=== PATIENT | female | born 1940 | race Caucasian/White ===

== ENCOUNTER 2016-06-05 12:39 | Inpatient (IN) | payer OTHER ==
[2016-06-05] MEDS ORDERED: LORazepam 0.5 MG TAB PO PRN (13:36)
[2016-06-05] MEDS ORDERED: diphenhydrAMINE 25 MG CAP PO PRN (13:36)
[2016-06-05] MEDS ORDERED: ONDANSETRON 4 MG/2 ML VIAL IVP PRN (13:36)
[2016-06-05] MEDS ORDERED: NS 1,000 ML IV SCH (13:45)
[2016-06-05 14:13] LABS: % IMMATURE GRANULYOCYTES 0.3 % (0.0-1.1); ABSOLUTE IMMATURE GRANULOCYTES 0.02 10^3/uL (0.00-0.10); ADD DIFF? NO; ADD MORPH? NO; ADD SCAN? NO; ATYPICAL LYMPHOCYTE FLAG 10 (0-99); FRAGMENT RBC FLAG 0 (0-99); HEMATOCRIT 42.3 % (38.0-47.0); HEMOGLOBIN 13.6 g/dL (12.6-16.3); LEFT SHIFT FLG 0 (0-99); LIPEMIA HEMOLYSIS FLAG 80 (0-99); MEAN CELL HEMOGLOBIN 31.3 pg (27.9-34.1); MEAN CELL HEMOGLOBIN CONCENTR. 32.2 g/dL (32.4-36.7); MEAN CELL VOLUME 97.5 fL (81.5-99.8); MEAN PLATELET VOLUME 8.3 fL (8.7-11.7); PLATELET CLUMPS FLAG 0 (0-99); PLATELET COUNT 227 10^3/uL (150-400); RED BLOOD CELL COUNT 4.34 10^6/uL (4.18-5.33); RED CELL DISTRIBUTION WIDTH 14.6 % (11.5-15.2)
[2016-06-05 14:32] LABS: ALANINE AMINOTRANSFERASE 34 IU/L (9-52); ALBUMIN 3.6 g/dL (3.5-5.0); ALKALINE PHOSPHATASE 69 IU/L (38-126); ANION GAP 7 mEq/L (8-16); ASPARTATE AMINOTRANSFERASE 25 IU/L (14-46); BILIRUBIN,TOTAL 0.6 mg/dL (0.1-1.4); CALCIUM 8.6 mg/dL (8.5-10.4); CARBON DIOXIDE 27 mEq/l (22-31); CHLORIDE 103 mEq/L (97-110); CREATININE 0.6 mg/dL (0.6-1.0); GLOMERULAR FILTRATION RATE > 60; GLUCOSE 88 mg/dL (70-100); POTASSIUM 5.3 mEq/L (3.5-5.2); SODIUM 137 mEq/L (134-144); TOTAL PROTEIN 5.8 g/dL (6.3-8.2)
--- NOTE | 2016-06-05 14:34 | GHP ---
[f rep st] HISTORY AND PHYSICAL DATE OF ADMISSION: 06/05/2016 REASON FOR ADMISSION: Hypoxia, suspected pneumonia, rule out pulmonary embolus. HISTORY OF PRESENT ILLNESS: The patient is a 75-year-old female, who started to feel ill on Wednesday . She has remained to be somewhat weak, has had a productive cough and has noticed some wheezing. She thinks that burning some soup ingredients may have been the initial irritant that triggered her lung irritation. She feels weak, tired and frustrated. She has had increased left knee pain which has further limited her mobility. She has had some swelling in that leg. Despite low saturation yovani gutierrez denies obvious shortness of breath. She does take chronic pain medications given musculoskeletal issues. 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 ALLERGIES: Biaxin causes nausea; fentanyl patch poorly tolerated; penicillins, reaction unknown; pr omethazine with dyskinesia; Remicade, prior transverse myelitis; codeine, nausea and vomiting; Butra ns patch caused a rash from the adhesive; Macrobid, global dysfunction. OB HISTORY: 2 pregnancies, 2 children, normal spontaneous deliveries without complications. SURGICAL HISTORY: Several spinal surgeries, exploratory abdominal surgery for abdominal pain, appen dectomy 2006, hysterectomy 1974. FAMILY HISTORY: Father at age 45 from trauma. Mother lived to be 92, suffered from leukemia a nd rheumatoid arthritis. REVIEW OF SYSTEMS: GENERAL: She is currently feeling quite fatigued. She admits to fever, some ch ills and overall frustration with weakness. HEENT: She denies headaches, denies visual change. Yovani gutierrez does feel there is some nasal congestion. She denies sore throat or dental pain. Denies acute he aring challenges. NECK: No unusual pain. BREATHING: She admits to an intermittently heavy produc tive cough; this is productive of brown sputum. She is not a smoker. Does not have a smoking histo ry. She does have a history of pneumonia, most recently in December of this past year. She denies chest pain or pressure. She denies any sense of rhythm abnormalities. GASTROINTESTINAL: She state s her appetite is diminished. Chronic loose stool is unchanged. No other acute abdominal issue. L eft-sided abdominal pain is a chronic challenge. SKIN: No recent rash. BREAST AND PELVIC: Otherw ise no concerns outside of chronic urinary incontinence. She does have a history of recurrent bladd er infection and is on suppression cephalexin at bedtime. MUSCULOSKELETAL: As per past medical hist ory, left knee has been most painful more recently. Rheumatoid arthritis seems to be mostly well co ntrolled. Chronic pain medication therapy is working well for chronic back pain. PHYSICAL EXAM: VITAL SIGNS: Temperature 100.4, blood pressure 140/68, saturation on room air is 78 %, with oxygen she is in the 90s, respiratory rate 16 to 20. GENERAL: Tired but pleasant female. HEENT: Some increased puffiness about her eyes. Pupils are symmetric. She is appropriate. Head i s atraumatic. Oropharynx is somewhat dry. NECK: Without masses. No jugular venous pressure or el evation. No lymphadenopathy. LUNGS: Diminished breath sounds. There are crackles and productivit y in her bases. Breath sounds improved somewhat after albuterol nebulizer treatment in the office. HEART: Regular rate and rhythm without murmur. ABDOMEN: Moderate central adiposity. Positive nafisa wel sounds. Soft, nontender. No guarding rebound or masses. SPINE: Stable postsurgical changes. On exam, no acute tenderness. EXTREMITIES: Lower extremities left leg with 2+ edema, right leg wi th trace to 1+ edema. Left knee with hypertrophic degenerative changes, as well as some warmth. Bl ood work is pending. IMAGING: Pending. ASSESSMENT: 1. Hypoxia. Lung exam and findings consistent with pneumonia. Underlying pulmonary emboli cannot be excluded. We will admit. Supply supportive oxygen. Check blood cultures. Begin antibiotic the rapy with Levaquin 750 mg IV daily. Add Solu-Medrol IV, as well as serial nebs. We will obtain CT chest with and without contrast. Rule out pneumonia or pulmonary emboli. If there is no pulmonary embolism, check left lower extremity venous Doppler to rule out potential clot in leg. 2. Chronic pain. I suspect chronic pain meds are reducing sense of shortness of breath. We will c ontinue with typical schedule; adjust based on pain control and overall vital sign response. 3. Hypertension. Well controlled. 4. Depression. Acute on chronic challenges. Day to day quality of life is certainly straining ove rall sense of well-being and independence. 5. Rheumatoid arthritis. Stable. 6. Acute left knee pain. She has had recent injection therapy. She may need to consider further i njections versus orthopedic consultation for knee replacement. At this time further data is pending. We will tailor therapy based on results. We will initiate Lo venox for DVT/PE prevention. We may need to change the treatment dose based on findings of above te sts. /[id number]/MODL
[2016-06-05] MEDS: HYDROCODONE/APAP 10/325 TAB PO PRN (14:39)
--- NOTE | 2016-06-05 14:59 | CPEKG ---
Heart Rate: 78 RR Interval: 769 P-R Interval: 164 QRSD Interval: 88 QT Interval: 404 QTC Interval: 461 P [place]: 77 QRS [place]: -52 T Wave [place]: -2 EKG Severity - ABNORMAL ECG - EKG Impression: SINUS RHYTHM EKG Impression: MULTIPLE VENTRICULAR PREMATURE COMPLEXES EKG Impression: LEFT ANTERIOR FASCICULAR BLOCK EKG Impression: PROBABLE ANTEROSEPTAL INFARCT, AGE INDETERM EKG Impression: NONSPECIFIC T ABNORMALITIES, INFERIOR LEADS Electronically Signed By: Wan Johnson 05-Jun-2016 16:18:15
[2016-06-05] MEDS: ALBUTEROL 3 ML DEYVIAL IH SCH ×2 (15:33→21:06)
[2016-06-05] MEDS ORDERED: IOPAMIDOL (ISOVUE 370) 100 ML BTL IV ONE (16:14)
[2016-06-05] MEDS: ACETAMINOPHEN 325 MG TAB PO PRN (17:23)
[2016-06-05] MEDS: methylPREDNISolone SOD SUCC 125 MG/2 ML VIAL IVP SCH (18:05)
[2016-06-05] MEDS: GABAPENTIN 300 MG CAP PO SCH (20:22)
[2016-06-05] MEDS: morphINE SR 30 MG TAB PO SCH (20:22)
[2016-06-05 20:53] LABS: COLOR PALE YELLOW; LEUKOCYTE ESTERASE,URINE NEGATIVE (NEGATIVE); NITRITE,URINE NEGATIVE (NEGATIVE)
[2016-06-05] MEDS ORDERED: morphINE SR 30 MG TAB PO SCH (21:00)
[2016-06-05] MEDS ORDERED: HYDROCODONE/APAP 10/325 TAB PO SCH (22:00)
[2016-06-06] MEDS: methylPREDNISolone SOD SUCC 125 MG/2 ML VIAL IVP SCH ×3 (00:12→13:04)
[2016-06-06] MEDS: HYDROCODONE/APAP 10/325 TAB PO PRN ×3 (04:30→18:36)
[2016-06-06] MEDS: ALBUTEROL 3 ML DEYVIAL IH SCH ×4 (05:35→21:44)
[2016-06-06] MEDS: ONDANSETRON DISINTEGRATING 4 MG TAB PO PRN ×2 (08:59→18:08)
[2016-06-06] MEDS ORDERED: NON-FORMULARY NEW DRUG (Modafinil [Provigil] 200 MG) PO SCH (09:00)
[2016-06-06] MEDS ORDERED: VITAMIN B COMPLEX 1 EA CAP/TAB PO SCH (09:00)
[2016-06-06] MEDS: ASPIRIN 81 MG CHEWABLE TAB PO SCH (09:00)
[2016-06-06] MEDS ORDERED: NON-FORMULARY NEW DRUG (Nebivolol Hcl [Bystolic] 10 MG) PO SCH (09:00)
[2016-06-06] MEDS ORDERED: CHOLECALCIFEROL PO SCH ×2 (09:00)
[2016-06-06] MEDS: NEBIVOLOL HCL 5 MG TAB PO SCH (09:01)
[2016-06-06] MEDS: GABAPENTIN 300 MG CAP PO SCH ×2 (09:02→20:13)
[2016-06-06] MEDS: OMEGA-3 FATTY ACIDS 1,000 MG CAP PO SCH (09:03)
[2016-06-06] MEDS: ASCORBIC ACID 500 MG TAB PO SCH (09:03)
[2016-06-06] MEDS: VITAMIN B COMPLEX 1 EA CAP/TAB PO SCH (09:05)
[2016-06-06] MEDS: LISINOPRIL 40 MG TAB PO SCH (09:06)
[2016-06-06] MEDS: VENLAFAXINE XR 150 MG CAP PO SCH (09:06)
[2016-06-06] MEDS: ENOXAPARIN 30 MG/0.3 ML SYR SC SCH (09:11)
[2016-06-06] MEDS: MODAFINIL 100 MG TAB PO SCH (09:15)
[2016-06-06] MEDS: morphINE SR 30 MG TAB PO SCH ×2 (09:15→20:13)
--- NOTE | 2016-06-06 10:43 | SOAPPROG ---
SOAP Progress Note Assessment/Plan: Assessment:Pneumonia with bronchospasm. Unable to maintain IV access. Plan: Will change or oral antibiotics. Begin albuterol inhaler. Home tomorrow if improvement continues. 06/06/16 10:43 Subjective: Feeling some better. Still wobbly. 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 Sputum is thinner. Objective: Vital Signs Temp Pulse Resp BP Pulse Ox 37.2 C 121 H 16 154/99 H 96 06/06/16 07:45 06/06/16 09:01 06/06/16 08:45 06/06/16 09:06 06/06/16 08:45 Laboratory Results 06/05/16 13:45 06/05/16 13:45 06/05/16 06/06/16 06/07/16 05:59 05:59 05:59 Intake Total 250 Output Total 250 Balance 0 Lungs with scattered coarse wheezing. COR RRR. Oxygen sat 98-99% on RA. ICD10 Worksheet Patient Problems: Problems Problem Status Onset Abdominal pain Acute Arthrodesis status Acute Cauda equina syndrome Acute Chronic Disease Mgmt/Transitional Care Acute Low back pain Acute Lumbosacral stenosis Acute Pneumonia Acute UTI (urinary tract infection) Acute
[2016-06-06] MEDS: ACETAMINOPHEN 325 MG TAB PO PRN (12:16)
[2016-06-06] MEDS: predniSONE 20 MG TAB PO SCH (18:36)
[2016-06-07] MEDS: HYDROCODONE/APAP 10/325 TAB PO PRN ×2 (00:47→09:53)
[2016-06-07] MEDS: ACETAMINOPHEN 325 MG TAB PO PRN (03:41)
[2016-06-07] MEDS: ALBUTEROL 3 ML DEYVIAL IH SCH ×4 (05:27→20:39)
[2016-06-07] MEDS: morphINE SR 30 MG TAB PO SCH ×2 (09:53→20:13)
[2016-06-07] MEDS: ASCORBIC ACID 500 MG TAB PO SCH (10:02)
[2016-06-07] MEDS: OMEGA-3 FATTY ACIDS 1,000 MG CAP PO SCH (10:03)
[2016-06-07] MEDS: VENLAFAXINE XR 150 MG CAP PO SCH (10:03)
[2016-06-07] MEDS: NEBIVOLOL HCL 5 MG TAB PO SCH (10:03)
[2016-06-07] MEDS: predniSONE 20 MG TAB PO SCH ×2 (10:05→18:37)
[2016-06-07] MEDS: MODAFINIL 100 MG TAB PO SCH (10:05)
[2016-06-07] MEDS: LISINOPRIL 40 MG TAB PO SCH (10:06)
[2016-06-07] MEDS: CHOLECALCIFEROL VIT D3 2,000 UNITS TAB/CAP PO SCH (10:06)
[2016-06-07] MEDS: VITAMIN B COMPLEX 1 EA CAP/TAB PO SCH (10:06)
[2016-06-07] MEDS: GABAPENTIN 300 MG CAP PO SCH ×2 (10:06→20:13)
[2016-06-07] MEDS: ASPIRIN 81 MG CHEWABLE TAB PO SCH (10:06)
[2016-06-07] MEDS: ENOXAPARIN 30 MG/0.3 ML SYR SC SCH (10:08)
[2016-06-07] MEDS: ONDANSETRON DISINTEGRATING 4 MG TAB PO PRN (10:20)
[2016-06-07] MEDS ORDERED: QUEtiapine FUMARATE 25 MG TAB PO PRN (10:46)
--- NOTE | 2016-06-07 11:14 | SOAPPROG ---
SOAP Progress Note Assessment/Plan: Assessment: 75 yo female w/ pna, bronchospasm, rad, chronic pain, L 9th rib fracture -pna - changed to oral levaquin yesterday but reports she can't tolerate it ( nauseated and zofran no help), will change her to ceftin and azith, cont nebs, steroids, oxygen, want her to try to ambulate around some today as well. -chronic pain management - will increase her norco back to her usual dosing, cont baseline morphine as well. She is pretty uncomfortable currently. Her meds were reduced a bit b/c of hypoxia initially. -htn - bp elevated currently but in pain, with increased pain mngt expect this will return to good control. Will recheck vitals later today. -RA - stable. -insomnia - wrote order for her queitapine - was not on list, re-start tonight which should help calm things down for her and w/ some better sleep hopefully she will feel better tomorrow. -dispo - possible d/c tomorrow Plan: 06/07/16 11:05 Subjective: Not doing well, pain increased, didn't sleep, feeling discouraged Objective: Vital Signs Temp Pulse Resp BP Pulse Ox 36.4 C 81 18 175/108 H 96 06/07/16 10:22 06/07/16 10:22 06/07/16 10:22 06/07/16 10:22 06/07/16 10:22 Laboratory Results 06/05/16 13:45 06/05/16 13:45 06/06/16 06/07/16 06/08/16 05:59 05:59 05:59 Intake Total 250 1220 Output Total 250 4 Balance 0 1216 Gen: alert, teary, tired appearing HEENT: perr, wearing nasal cannula NEck: soft/supple Chest: wheezing and rhonchi CV: rrr ABD: soft nt nd Ext: no edema ICD10 Worksheet Patient Problems: Problems Problem Status Onset Abdominal pain Acute Low back pain Acute Lumbosacral stenosis Acute Arthrodesis status Acute Cauda equina syndrome Acute Chronic Disease Mgmt/Transitional Care Acute UTI (urinary tract infection) Acute Pneumonia Acute
[2016-06-07] MEDS ORDERED: AZITHROMYCIN 250 MG TAB PO ONE (11:17)
[2016-06-07] MEDS ORDERED: AZITHROMYCIN 250 MG TAB PO SCH (11:30)
[2016-06-07] MEDS: HYDROCODONE/APAP 10/325 TAB PO SCH ×3 (12:03→23:17)
[2016-06-07] MEDS: CEFUROXIME AXETIL 250 MG TAB PO SCH ×2 (12:03→20:13)
[2016-06-08 04:57] LABS: HEMATOCRIT 43.2 % (38.0-47.0); HEMOGLOBIN 14.2 g/dL (12.6-16.3); MEAN CELL HEMOGLOBIN 31.3 pg (27.9-34.1); MEAN CELL HEMOGLOBIN CONCENTR. 32.9 g/dL (32.4-36.7); MEAN CELL VOLUME 95.2 fL (81.5-99.8); RED BLOOD CELL COUNT 4.54 10^6/uL (4.18-5.33); RED CELL DISTRIBUTION WIDTH 14.5 % (11.5-15.2)
[2016-06-08] MEDS: HYDROCODONE/APAP 10/325 TAB PO SCH ×3 (05:02→18:13)
[2016-06-08] MEDS: ALBUTEROL 3 ML DEYVIAL IH SCH ×3 (05:18→16:35)
[2016-06-08 05:34] LABS: ANION GAP 8 mEq/L (8-16); CALCIUM 8.8 mg/dL (8.5-10.4); CARBON DIOXIDE 28 mEq/l (22-31); CHLORIDE 100 mEq/L (97-110); CREATININE 0.5 mg/dL (0.6-1.0); GLOMERULAR FILTRATION RATE > 60; GLUCOSE 119 mg/dL (70-100); POTASSIUM 4.7 mEq/L (3.5-5.2); SODIUM 136 mEq/L (134-144)
[2016-06-08] MEDS: OMEGA-3 FATTY ACIDS 1,000 MG CAP PO SCH (08:01)
[2016-06-08] MEDS: ASPIRIN 81 MG CHEWABLE TAB PO SCH (08:01)
[2016-06-08] MEDS: CEFUROXIME AXETIL 250 MG TAB PO SCH (08:01)
[2016-06-08] MEDS: CHOLECALCIFEROL VIT D3 2,000 UNITS TAB/CAP PO SCH (08:01)
[2016-06-08] MEDS: VITAMIN B COMPLEX 1 EA CAP/TAB PO SCH (08:01)
[2016-06-08] MEDS: NEBIVOLOL HCL 5 MG TAB PO SCH (08:01)
[2016-06-08] MEDS: LISINOPRIL 40 MG TAB PO SCH (08:02)
[2016-06-08] MEDS: MODAFINIL 100 MG TAB PO SCH (08:02)
[2016-06-08] MEDS: predniSONE 20 MG TAB PO SCH ×2 (08:02→18:12)
[2016-06-08] MEDS: ASCORBIC ACID 500 MG TAB PO SCH (08:02)
[2016-06-08] MEDS: GABAPENTIN 300 MG CAP PO SCH (08:02)
[2016-06-08] MEDS: VENLAFAXINE XR 150 MG CAP PO SCH (08:02)
[2016-06-08] MEDS: morphINE SR 30 MG TAB PO SCH (08:02)
[2016-06-08] MEDS: ENOXAPARIN 30 MG/0.3 ML SYR SC SCH (08:03)
[2016-06-08] MEDS ORDERED: IMMUNE GLOBULIN 20 GM/200 ML VIAL IV ONE (08:51)
--- NOTE | 2016-06-08 08:55 | SOAPPROG ---
SOAP Progress Note Assessment/Plan: Assessment: Plan: 06/08/16 08:53 immunosuppression with low IgG and pneumonia--clinically improving. Give IgG 40 grams today. Plan for d/c home this afternoon Pna-improving RA--stable chronic pain--improved control depression--at baseline hypoxia from acute respiratory failure from pneumonia--improved Subjective: The patient slept better after some frustrations with the bed alarm last night. Cough looser this am. She is feeling better. Joint pain is much better ( left knee) Objective: Vital Signs Temp Pulse Resp BP Pulse Ox 37 C 64 16 151/93 H 94 06/08/16 07:34 06/08/16 07:34 06/08/16 07:34 06/08/16 07:34 06/08/16 07:34 Laboratory Results 06/08/16 04:44 06/08/16 04:44 06/07/16 06/08/16 06/09/16 05:59 05:59 05:59 Intake Total 1220 675 Output Total 4 Balance 1216 675 Gen: brighter, clear HEENT: wnl Lungs: opening squeaks, productive cough, moderate wheeze Heart: RRR no murmur Abd + bs soft NT, ND Left knee --non tender LE's SCD's min edema labs look good except low IgG ICD10 Worksheet Patient Problems: Problems Problem Status Onset Abdominal pain Acute Arthrodesis status Acute Cauda equina syndrome Acute Chronic Disease Mgmt/Transitional Care Acute Low back pain Acute Lumbosacral stenosis Acute Pneumonia Acute UTI (urinary tract infection) Acute
[2016-06-08] MEDS ORDERED: METHOTREXATE 2.5 MG TAB PO SCH (09:00)
[2016-06-08] MEDS ORDERED: ALBUTEROL 3 ML DEYVIAL ONE (10:21)
[2016-06-08] MEDS ORDERED: AZITHROMYCIN 250 MG TAB PO SCH (11:30)
[2016-06-08 16:15] VITALS: BP 168/92; TEMP 98.7
[2016-06-08 16:37] VITALS: PULSE 69; RESP 20; O2SAT 94
--- NOTE | 2016-06-08 18:01 | SOAPPROG ---
SOAP Progress Note Assessment/Plan: Assessment: Plan: 06/08/16 08:53 immunosuppression with low IgG and pneumonia--clinically improving. Give IgG 40 grams today. Plan for d/c home this afternoon Pna-improving RA--stable chronic pain--improved control depression--at baseline hypoxia from acute respiratory failure from pneumonia--improved 06/08/16 17:59 patient had igg without difficulty, generally doing better, will d/c home. Rx' s for ceftin, zithromax and prednisone called to [facility] on , she has portable oxygen at home Will see her in office for f/u on Wednesday06/12/16 at 10:45 am Objective: Vital Signs Temp Pulse Resp BP Pulse Ox 37.1 C 69 20 168/92 H 94 06/08/16 16:10 06/08/16 16:36 06/08/16 16:36 06/08/16 16:10 06/08/16 16:36 Laboratory Results 06/08/16 04:44 06/08/16 04:44 06/07/16 06/08/16 06/09/16 05:59 05:59 05:59 Intake Total 1220 675 200 Output Total 4 Balance 1216 675 200 ICD10 Worksheet Patient Problems: Problems Problem Status Onset Chronic Disease Mgmt/Transitional Care Acute Abdominal pain Acute Arthrodesis status Acute Cauda equina syndrome Acute Chronic Disease Mgmt/Transitional Care Acute Low back pain Acute Lumbosacral stenosis Acute Pneumonia Acute UTI (urinary tract infection) Acute
--- NOTE | 2016-06-08 23:27 | GDS ---
[f rep st] DISCHARGE SUMMARY REASON FOR ADMISSION: Hypoxia with suspected pneumonia. DISCHARGE DIAGNOSES: Pneumonia confirmed by CT. Hypoxia with improvement with supplemental oxygen and treatment with steroids, nebulizers and antibiotics. IgG deficiency replaced with IgG infusion. Rheumatoid arthritis, stable. Chronic pain otherwise stable. HOSPITAL COURSE: Patient was admitted due to profound hypoxia with saturations around 78% on room a ir. She was ruled out to have any evidence of PE but ruled in to have pneumonia based on her CT. S he was initially started on IV Levaquin. This was changed to p.o. Levaquin but she could not tolera te it from a GI perspective. She has since been transitioned to Ceftin plus Zithromax, which she santoro s tolerated well. She has had less knee pain with the benefit of prednisone. Overall breathing has improved. She is still fairly congested. Her cough is more loose and productive, which she finds more satisfying this morning. She will be continued on Ceftin 250 b.i.d., Zithromax Z-Joel and predn isone 20 mg twice a day at home. She will have office followup on Wednesday. Call if any complication s arise. She has portable oxygen. We will continue with 2 L/minute for now given persistent hypoxi a in the upper 80s in the hospital setting. /[id number]/MODL
== END 2016-06-08 19:17 | disposition home or self-care (01) | DRG 193 ==
LOC: F3E 13:17 → OBSVTOIN 13:37
PROVIDERS: ADMIT Internal Medicine; ATTEND Internal Medicine
DX: J18.9 Pneumonia, unspecified organism (principal); J96.01 Acute respiratory failure with hypoxia; G47.00 Insomnia, unspecified; D80.3 Selective deficiency of immunoglobulin G [IgG] subclasses; M06.9 Rheumatoid arthritis, unspecified; I10 Essential (primary) hypertension; G89.29 Other chronic pain
CPT/HCPCS: 82784-90; 97116-GP; 97161-GP; 97165-GO; 97530-GO; 97535-GO; G8978-GP-CJ; G8979-GP-CI; G8987-GO-CI; G8988-GO-CI; J1459; J1650; J1956; Q9967

== ENCOUNTER → 2016-10-20 | Outpatient (CLI) | payer OTHER | LOC: BMCIMAGING 16:13 | PROVIDERS: ATTEND Internal Medicine Rheumatology | DX: M19.041 Primary osteoarthritis, right hand (principal); M19.042 Primary osteoarthritis, left hand; M19.071 Primary osteoarthritis, right ankle and foot ==

== ENCOUNTER 2016-11-25 05:56 | Inpatient (IN) | payer OTHER ==
[2016-11-10 15:07] LABS: % IMMATURE GRANULYOCYTES 0.3 % (0.0-1.1); ABSOLUTE IMMATURE GRANULOCYTES 0.02 10^3/uL (0.00-0.10); ADD DIFF? NO; ADD MORPH? NO; ADD SCAN? NO; ATYPICAL LYMPHOCYTE FLAG 10 (0-99); FRAGMENT RBC FLAG 0 (0-99); HEMATOCRIT 42.5 % (38.0-47.0); HEMOGLOBIN 13.5 g/dL (12.6-16.3); LEFT SHIFT FLG 0 (0-99); LIPEMIA HEMOLYSIS FLAG 80 (0-99); MEAN CELL HEMOGLOBIN 30.8 pg (27.9-34.1); MEAN CELL HEMOGLOBIN CONCENTR. 31.8 g/dL (32.4-36.7); MEAN CELL VOLUME 96.8 fL (81.5-99.8); MEAN PLATELET VOLUME 8.8 fL (8.7-11.7); PLATELET CLUMPS FLAG 0 (0-99); PLATELET COUNT 300 10^3/uL (150-400); RED BLOOD CELL COUNT 4.39 10^6/uL (4.18-5.33); RED CELL DISTRIBUTION WIDTH 13.6 % (11.5-15.2)
--- NOTE | 2016-11-11 09:26 | CPEKG ---
Heart Rate: 62 RR Interval: 968 P-R Interval: 176 QRSD Interval: 100 QT Interval: 452 QTC Interval: 459 P [place]: 77 QRS [place]: -33 T Wave [place]: 2 EKG Severity - ABNORMAL ECG - EKG Impression: SINUS RHYTHM EKG Impression: PAC with aberrancy EKG Impression: LEFT AXIS DEVIATION Electronically Signed By: Abel Cintron 11-Nov-2016 11:51:26
[2016-11-25] MEDS ORDERED: TRANEXAMIC ACID 800 MG in NS 100 ML IV ONE (06:00)
[2016-11-25] MEDS ORDERED: ROPIVACAINE 0.2% 80 MG, EPINEPHrine 0.2 MG, KETOROLAC TROMETHAMINE 30 MG, morphINE 10 M... IU ONE (06:00)
[2016-11-25] MEDS ORDERED: TRANEXAMIC ACID 1,000 MG in NS 100 ML IV ONE (06:00)
[2016-11-25] MEDS ORDERED: TRANEXAMIC ACID IV ONE (06:00)
[2016-11-25] MEDS ORDERED: ceFAZolin 2 GM/DEXTROSE 100 ML IV ONE (06:35)
[2016-11-25] MEDS ORDERED: FAMOTIDINE 20 MG TAB PO ONE (06:35)
[2016-11-25] MEDS ORDERED: ACETAMINOPHEN 325 MG TAB PO ONE (06:35)
[2016-11-25] MEDS ORDERED: DEXAMETHASONE 4 MG/ML VIAL IVP ONE (06:35)
[2016-11-25] MEDS ORDERED: ceFAZolin 1 GM/5 ML SYR ONE (07:00)
[2016-11-25] MEDS ORDERED: LR 1,000 ML IV ONE (07:05)
[2016-11-25] MEDS ORDERED: MIDAZOLAM 2 MG/2 ML VIAL ONE (07:09)
[2016-11-25] MEDS ORDERED: ROPIVACAINE HCL 150 MG/30 ML INJ ONE (07:10)
[2016-11-25] MEDS ORDERED: HYDROmorphONE/DILAUDID 2 MG/ML INJ ONE ×2 (07:10→08:05)
[2016-11-25] MEDS ORDERED: LIDOCAINE 2% 5 ML SDV ONE (07:10)
[2016-11-25] MEDS ORDERED: fentaNYL 100 MCG/2 ML INJ ONE ×4 (07:10→10:11)
[2016-11-25] MEDS ORDERED: PROPOFOL 200 MG/20 ML VIAL ONE (07:10)
--- NOTE | 2016-11-25 07:16 | PDHPUP ---
History & Physical Update H&P update statement: This history and physical update is based on an assessment of the patient which was completed after admission or registration (within 24 hours), but prior to the surgery/procedure.
[2016-11-25] MEDS ORDERED: MIDAZOLAM 2 MG/2 ML VIAL IVP ONE (07:45)
--- NOTE | 2016-11-25 07:45 | PDANEPAE ---
ANE History of Present Illness left knee osteoarthritis, pain ANE Past Medical History - Cardiovascular History Hx Hypertension: Yes Hx Arrhythmias: No Hx Chest Pain: No Hx Coronary Artery / Peripheral Vascular Disease: No Hx CHF / Valvular Disease: No Hx Palpitations: No - Pulmonary History Hx COPD: No Hx Asthma/Reactive Airway Disease: No Hx Recent Upper Respiratory Infection: No Hx Oxygen in Use at Home: No Hx Sleep Apnea: Yes Sleep Apnea Screening Result - Last Documented: Positive - Neurologic History Hx Cerebrovascular Accident: No Hx Seizures: No Hx Dementia: No - Endocrine History Hx Diabetes: No - Renal History Hx Renal Disorders: Yes Renal History Comment: URGE INCONT. PYELONEPHRITIS 1946 - Liver History Hx Hepatic Disorders: No - Neurological & Psychiatric Hx Hx Neurological and Psychiatric Disorders: Yes Neurological / Psychiatric History Comment: DEPRESSION/ANXIETY - Cancer History Hx Cancer: No - Congenital Disorder History Hx Congenital Disorders: No - GI History Hx Gastrointestinal Disorders: Yes Gastrointestinal History Comment: DIVERTICULOSIS. IBS - Other Health History Other Health History: ECZEMA ON ELBOWS. INTERMITTENT SCIATICA. EDEMA L LEG & ANKLE. ANKYLOSING SPONDYLITIS - Chronic Pain History Chronic Pain: Yes (SPINE & L LEG & FEET) - Surgical History Prior Surgeries: RT CATARACT 09/2013. LT FLANK HERNIA REPAIR 12/2012. RT TOTAL KNEE 07/2012. RT KNEE SCOPE. LAMINECTOMY & FUSION X 4 SURG. HYSTERECTOMY. RT BREAST BX X2 ANE Review of Systems Review of Systems: - Exercise capacity METS (RN): 2 METS ANE Patient History - Allergies Allergies/Adverse Reactions: infliximab [From Remicade] Allergy (Severe, Verified 01/23/16 12:12) RIGHT SIDED PARALYSIS, SEVERE REACTION Penicillins Allergy (Intermediate, Verified 01/23/16 12:12) Hives clarithromycin [From Biaxin] Allergy (Mild, Verified 01/23/16 12:12) nausea codeine [Codeine] Allergy (Mild, Verified 01/23/16 12:12) UPSET STOMACH, HEAD SPINS fentanyl Allergy (Mild, Verified 01/23/16 12:12) Vomiting oxycodone Allergy (Mild, Verified 01/23/16 12:12) - Home Medications Home Medications: RX: Ascorbic Acid [Vitamin C 500 mg (*)] 1,000 mg PO DAILY 01/23/16 [Last Taken 01/22/16] RX: Aspirin [Aspirin 81mg (*)] 81 mg PO DAILY 01/23/16 [Last Taken 01/22/16] RX: Gabapentin [Neurontin 300 MG (*)] 300 mg PO Q8HRS 01/23/16 [Last Taken 01/21] RX: Hydrocodone/Acetaminophen [Lortab 10-325 mg Tablet] 1 each PO Q6HRS PRN [Last Taken 01/22/16] RX: Lisinopril [Zestril 40 mg (*)] 40 mg PO DAILY 01/23/16 [Last Taken 01/22/16] RX: Nebivolol HCl [Bystolic] 10 mg PO HS 01/23/16 [Last Taken 01/22/16] RX: [place]-3 Fatty Acids [Fish Oil 1000 mg (*)] 1,000 mg PO DAILY 01/23/16 [Last Taken 01/22/16] RX: Vitamin B Complex [B Complex] 1 each PO DAILY 01/23/16 [Last Taken 01/22/16] Cholecalciferol Vit D3 [Vitamin D3 (*)] 3,000 - 5,000 units PO DAILY 10/12/16 [ Last Taken Unknown] Ondansetron Odt [Zofran Odt 4 mg (*)] 4 mg PO DAILY 10/12/16 [Last Taken Unknown ] RX: Herbals/Supplements -Info Only 1 ea PO DAILY 10/12/16 [Last Taken Unknown] RX: Methylphenidate HCl [Ritalin 5mg (*)] 5 mg PO BID 10/12/16 [Last Taken Unknown] Venlafaxine HCl [Effexor] 50 mg PO DAILY 10/12/16 [Last Taken Unknown] Venlafaxine Xr [Effexor Xr 75MG (*)] 75 mg PO DAILY 10/12/16 [Last Taken 05:00] celeCOXIB [Celebrex (*)] 200 mg PO BID 10/12/16 [Last Taken Unknown] - NPO status NPO Since - Liquids (Date): 11/24/16 NPO Since - Liquids (Time): 23:59 NPO Since - Solids (Date): 11/24/16 NPO Since - Solids (Time): 20:00 - Smoking Hx Smoking Status: Former smoker ANE Labs/Vital Signs - Labs Result Diagrams: 11/10/16 14:33 - Vital Signs Blood Pressure: 165/81 Heart Rate: 68 Respiratory Rate: 14 O2 Sat (%): 92 Height: 160.02 cm Weight: 81.647 kg ANE Physical Exam - Airway Neck exam: FROM Mallampati Score: Class 2 Mouth exam: normal dental/mouth exam - Pulmonary Pulmonary: no respiratory distress - Cardiovascular Cardiovascular: regular rate and rhythym - ASA Status ASA Status: II ANE Anesthesia Plan Anesthesia Plan: general endotracheal anesthesia Regional Anesthesia: adductor canal FNB
[2016-11-25] MEDS ORDERED: ESMOLOL HCL 100 MG/10 ML VIAL IV ONE (08:05)
[2016-11-25] MEDS ORDERED: PHENYLEPHRINE HCL 100 MCG/ML SYR ONE (08:05)
[2016-11-25] MEDS ORDERED: ONDANSETRON 4 MG/2 ML VIAL ONE ×2 (08:05→11:42)
[2016-11-25] MEDS ORDERED: DEXAMETHASONE 4 MG/ML VIAL ONE (08:05)
[2016-11-25] MEDS ORDERED: epHEDrine SULFATE 10 MG/ML SYR ONE (08:05)
[2016-11-25] MEDS ORDERED: HYDROCODONE/APAP 5/325 TAB PO PRN (08:41)
[2016-11-25] MEDS ORDERED: NALOXONE HCL 0.4 MG/ML INJ IVP PRN (08:41)
[2016-11-25] MEDS ORDERED: LABETALOL HCL 50 MG/10 ML SYR IVP PRN (08:41)
[2016-11-25] MEDS ORDERED: ONDANSETRON 4 MG/2 ML VIAL IVP PRN ×2 (08:41→10:12)
[2016-11-25] MEDS ORDERED: PROMETHAZINE HCL 25 MG/ML INJ IVP PRN (08:41)
[2016-11-25] MEDS ORDERED: HYDROmorphONE/DILAUDID 1 MG/ML INJ ONE ×2 (10:11→10:32)
[2016-11-25] MEDS ORDERED: MAGNESIUM HYDROXIDE 30 ML UDCUP PO PRN (10:12)
[2016-11-25] MEDS ORDERED: TEMAZEPAM 15 MG CAP PO PRN (10:12)
[2016-11-25] MEDS ORDERED: diphenhydrAMINE 25 MG CAP PO PRN (10:12)
[2016-11-25] MEDS ORDERED: POLYETHYLENE GLYCOL 3350 17 GM PKT PO PRN (10:12)
[2016-11-25] MEDS: fentaNYL 100 MCG/2 ML INJ IVP PRN ×2 (10:12→10:17)
--- NOTE | 2016-11-25 10:12 | POSTANESTH ---
Post Anesthetic Evaluation Cardiovascular Status: Normal, Stable Respiratory Status: Normal, Stable Level of Consciousness/Mental Status: Can Participate in Eval Pain Control: Adequate, Prn Tx Ordered Nausea/Vomiting Control: Adequate, Prn Tx Ordered Complications Possibly Related to Anesthesia: None Noted
[2016-11-25] MEDS: HYDROmorphONE/DILAUDID 1 MG/ML INJ IVP PRN ×4 (10:14→11:41)
[2016-11-25] MEDS ORDERED: LR 1,000 ML IV SCH (10:30)
--- NOTE | 2016-11-25 10:42 | POSTOPPROG ---
Post Op Note Date of Operation: 11/25/16 Surgeon: Bishop Live Car Rental Clerk: Crissy Wright PA-C Anesthesia: GET(General Endotracheal) Pre-op Diagnosis: left knee osteoarthritis Post-op Diagnosis: left knee osteoarthritis Indication: arthritis/pain Procedure: left total knee arthropalsty Findings: see operative dictation Inf/Abcess present in the surg proc area at time of surgery?: No EBL: 100-500 Drains: Hemovac (1 drain: left knee)
--- NOTE | 2016-11-25 11:39 | GOP ---
[f rep st] OPERATIVE REPORT DATE OF OPERATION: 11/25/2016 SURGEON: Bishop Live MD FILLING STATION LABORER: Crissy Wright PA-C. ANESTHESIA: General. PREOPERATIVE DIAGNOSIS: Osteoarthritis, left knee, with severe genu valgum. POSTOPERATIVE DIAGNOSIS: Osteoarthritis, left knee, with severe genu valgum. PROCEDURE PERFORMED: Left total knee arthroplasty. FINDINGS: DESCRIPTION OF PROCEDURE: Patient was taken to the operating room, administered general anesthesia, and placed in supine position. Left lower extremity was prepped and draped in normal sterile fashion . Esmarch exsanguination performed followed by elevation of the thigh cuff to 275 mmHg pressure. Mi dline incision was made through dermal and subcutaneous tissues. Medial parapatellar incision was ma de. The patella was reflected laterally. The fat pad was reduced in size, and the anterior portions of medial and lateral menisci were excised. The distal femur was exposed. The guide was placed in the distal femur, and 2 drill holes were made down to the subchondral bone with the lug drill. Dista l femoral cutting blocks were placed on the distal femur. There was a slight step cut. This was mad e with the reciprocating saw, followed by the distal femoral cuts with the oscillating saw. Tibia huang bluxed anteriorly. The soft tissues were further removed from around the tibia, including portions o f menisci and adipose tissue. The articular surface of the tibia was denuded down to subchondral bon e with a ring curette. Our tibial cuts were indexed off the subchondral bone. We used the guide and aligned it in all planes. There was more cut taken medially than the actual guide showed to correct her valgus deformity. This cut was made with the oscillating saw. This wafer of bone was removed. Flexion and extension gaps were assessed. We elected to take a little more bone medially after asse ssing the flexion and extension gaps, because it was tight medially on the tibia. This tightness was present in both flexion and extension. The distal femoral AP cutting block was placed in the distal femur. It was rotated, and alignment took less bone laterally. The lateral condyle was hypoplastic . The distal femoral AP cuts were made with the oscillating saw. The anterior chamfer cut was then made with the oscillating saw. The posterior chamfer cutting block was then placed in the distal fem ur, and the 2 posterior chamfer cuts were made with the oscillating saw. Our trial implants were ins erted. A rotational axis was assessed and marked on the tibia. The tibial tray was then positioned and secured with 2 pins. The metaphyseal drill was passed down through the tibial guide. The fin cu tting block was passed down to the proximal tibia. Trials were put in position, and the knee was put through a range of motion. We felt our alignment was good. All surfaces were thoroughly lavaged. The box cut was made in the distal femur for the posterior stabilizing portion of the implant. This was made after putting the trial in place. The reciprocating saw was used to make the vertical cuts. The oscillating saw was used to make the distal cut. This wafer of bone was removed, and the depth s were recessed. The trial was put back in position and fit nicely. The trials were again reinserte d. The knee was put through a range of motion. We elected to go with an 8 mm insert. The trials we re removed. All surfaces were thoroughly lavaged and dried. The tibia was cemented into place, foll owed by the femur, followed by the patella. All excess cement was removed. A thorough lavage was ag ain performed. The tourniquet was let down. Small bleeders were cauterized. A drain was placed sup erolaterally. Closure was performed with a #1 Vicryl in the retinacular layer, followed by 2-0 Vicry l in the subcutaneous tissues, followed by sal in the dermis. A sterile compression dressing was applied. The patient tolerated procedure well and was transferred back to recovery room in stable c ondition. No operative complications. COMPLICATIONS: None. /[id number]/MODL
[2016-11-25] MEDS ORDERED: oxyCODONE IR 5 MG TAB ONE (11:42)
[2016-11-25] MEDS: oxyCODONE IR 5 MG TAB PO PRN ×3 (11:54→23:51)
[2016-11-25] MEDS ORDERED: WARFARIN SODIUM 5 MG TAB PO ONE (12:15)
[2016-11-25 12:33] LABS: INR 1.08 (0.83-1.16); PROTIME(PATIENT) 13.9 SEC (12.0-15.0)
[2016-11-25] MEDS: ACETAMINOPHEN 325 MG TAB PO SCH ×3 (12:51→23:51)
[2016-11-25] MEDS: ceFAZolin 2 GM/DEXTROSE 100 ML IV SCH ×2 (15:46→23:52)
[2016-11-25] MEDS: ONDANSETRON DISINTEGRATING 4 MG TAB PO PRN (19:47)
[2016-11-25] MEDS: CYCLOBENZAPRINE 10 MG TAB PO PRN (19:47)
[2016-11-25] MEDS: FAMOTIDINE 20 MG TAB PO SCH (19:49)
[2016-11-25] MEDS: SENNOSIDES/DOCUSATE SODIUM TAB PO SCH (19:49)
[2016-11-26 05:02] LABS: HEMATOCRIT 35.4 % (38.0-47.0); HEMOGLOBIN 11.4 g/dL (12.6-16.3)
[2016-11-26] MEDS: oxyCODONE IR 5 MG TAB PO PRN ×5 (06:22→20:35)
[2016-11-26] MEDS: ACETAMINOPHEN 325 MG TAB PO SCH ×4 (06:23→23:59)
[2016-11-26] MEDS: ONDANSETRON DISINTEGRATING 4 MG TAB PO PRN ×2 (06:23→16:06)
--- NOTE | 2016-11-26 08:21 | SOAPPROG ---
SOAP Progress Note Assessment/Plan: Assessment: Status post left total knee arthroplasty Plan: WBAT LLE PT/OT CHINMAY's/SCD's DVT prophlaxis - Warfarin Pain medicine as needed Drain pulled today Ortho Stable Subjective: 76 year old female post op day #1 from a left total knee arthroplasty. Patient states her knee is painful but overall she is doing okay. She has been up and out of bed. Overall she is Ortho stable. Objective: Vital Signs Temp Pulse Resp BP Pulse Ox 37.1 C 80 14 171/88 H 96 11/26/16 07:42 11/26/16 07:42 11/26/16 07:42 11/26/16 07:42 11/26/16 07:42 Laboratory Results 11/26/16 04:29 11/25/16 11/26/16 11/27/16 05:59 05:59 05:59 Intake Total 4455 Output Total 2345 Balance 2110 PT 13.9 SEC (12.0-15.0) 11/25/16 12:15 INR 1.08 (0.83-1.16) 11/25/16 12:15 Physical exam of the left knee: dressings clean, dry and intact. Drain removed today. Normal sensation to light touch in the LLE. Distal pulse present in the LLE. ICD10 Worksheet Patient Problems: Problems Problem Status Onset Abdominal pain Acute Arthrodesis status Acute Cauda equina syndrome Acute Chronic Disease Mgmt/Transitional Care Acute Chronic Disease Mgmt/Transitional Care Acute Low back pain Acute Lumbosacral stenosis Acute Pneumonia Acute UTI (urinary tract infection) Acute
[2016-11-26] MEDS ORDERED: QUEtiapine FUMARATE 25 MG TAB PO PRN (08:59)
[2016-11-26] MEDS ORDERED: Herbals/Supplements -Info Only PO SCH (09:00)
[2016-11-26] MEDS ORDERED: VENLAFAXINE HCL 25 MG TAB PO SCH (09:00)
[2016-11-26] MEDS ORDERED: NEBIVOLOL HCL 5 MG TAB PO ONE (09:01)
--- NOTE | 2016-11-26 09:07 | SOAPPROG ---
SOAP Progress Note Assessment/Plan: Assessment: Plan: 11/26/16 09:05 HTN--resume BP meds, missed HS bystolic, will give AM dose today and resume nightly schedule tonight RLS--gabapentin reumed Chronic pain, was on BID Morphine 30 mg SR plus QID hydrocodone 10/325 2 po q6 will resume long acting morphine to reduce withdrawals, continue with prn's as per ortho depression/anxiety/insomnia--resume effexor and prn seroquel Subjective: Patient is doing fairly well after LTKA. Admits to RLS sx dramatically increased. Xero sleep HS Objective: Vital Signs Temp Pulse Resp BP Pulse Ox 37.1 C 80 14 171/88 H 96 11/26/16 07:42 11/26/16 07:42 11/26/16 07:42 11/26/16 07:42 11/26/16 07:42 Laboratory Results 11/26/16 04:29 11/25/16 11/26/16 11/27/16 05:59 05:59 05:59 Intake Total 4455 Output Total 2345 Balance 2110 PT 13.9 SEC (12.0-15.0) 11/25/16 12:15 INR 1.08 (0.83-1.16) 11/25/16 12:15 Gen: bright, mildly worried HEENT: wnl Lungs: CTAB Heart: elevated baseline HR ABd + bs soft Left knee--dressed Neuro: LE's wiggly ICD10 Worksheet Patient Problems: Problems Problem Status Onset Abdominal pain Acute Arthrodesis status Acute Cauda equina syndrome Acute Chronic Disease Mgmt/Transitional Care Acute Chronic Disease Mgmt/Transitional Care Acute Low back pain Acute Lumbosacral stenosis Acute Pneumonia Acute UTI (urinary tract infection) Acute
[2016-11-26] MEDS: ASCORBIC ACID 500 MG TAB PO SCH (09:30)
[2016-11-26] MEDS: FAMOTIDINE 20 MG TAB PO SCH ×2 (09:30→20:35)
[2016-11-26] MEDS: CHOLECALCIFEROL VIT D3 1,000 UNITS TAB PO SCH (09:31)
[2016-11-26] MEDS: VITAMIN B COMPLEX 1 EA CAP/TAB PO SCH (09:32)
[2016-11-26] MEDS: LISINOPRIL 40 MG TAB PO SCH (09:32)
[2016-11-26] MEDS: VENLAFAXINE XR 75 MG CAP PO SCH (09:32)
[2016-11-26] MEDS: morphINE SR 30 MG TAB PO SCH ×2 (09:38→20:35)
--- NOTE | 2016-11-26 11:25 | ASMTCMCOM ---
CM Note CM Note Notes: Pt wants to d/c to [facility], referral sent. PT rec C, OT eval pending. Pt can d/c Wednesday to [facility] if medically stable. Date Signed: 11/26/2016 11:24 AM Electronically Signed By:CURTIS Way
[2016-11-26] MEDS: SENNOSIDES/DOCUSATE SODIUM TAB PO SCH ×2 (13:51→20:34)
[2016-11-26] MEDS: CYCLOBENZAPRINE 10 MG TAB PO PRN (16:06)
[2016-11-26] MEDS: GABAPENTIN 300 MG CAP PO SCH ×2 (16:35→20:34)
[2016-11-26] MEDS ORDERED: WARFARIN SODIUM 5 MG TAB PO SCH (17:30)
[2016-11-26] MEDS: NEBIVOLOL HCL 5 MG TAB PO SCH (20:34)
[2016-11-26] MEDS: VENLAFAXINE XR 150 MG CAP PO SCH (20:35)
[2016-11-26] MEDS ORDERED: NON-FORMULARY NEW DRUG (Nebivolol Hcl [Bystolic] 10 MG) PO SCH (21:00)
[2016-11-27] MEDS: oxyCODONE IR 5 MG TAB PO PRN ×6 (00:41→21:46)
[2016-11-27 04:50] LABS: HEMATOCRIT 34.7 % (38.0-47.0); HEMOGLOBIN 11.5 g/dL (12.6-16.3)
[2016-11-27 04:59] LABS: INR 2.31 (0.83-1.16); PROTIME(PATIENT) 25.6 SEC (12.0-15.0)
[2016-11-27] MEDS: GABAPENTIN 300 MG CAP PO SCH ×3 (06:13→21:39)
[2016-11-27] MEDS: ACETAMINOPHEN 325 MG TAB PO SCH ×4 (06:13→23:58)
[2016-11-27] MEDS: CHOLECALCIFEROL VIT D3 1,000 UNITS TAB PO SCH (08:43)
[2016-11-27] MEDS: VENLAFAXINE XR 150 MG CAP PO SCH (08:43)
[2016-11-27] MEDS: VENLAFAXINE XR 75 MG CAP PO SCH (08:43)
[2016-11-27] MEDS: LISINOPRIL 40 MG TAB PO SCH (08:44)
[2016-11-27] MEDS: FAMOTIDINE 20 MG TAB PO SCH ×2 (08:44→21:39)
[2016-11-27] MEDS: ASCORBIC ACID 500 MG TAB PO SCH (08:44)
[2016-11-27] MEDS: VITAMIN B COMPLEX 1 EA CAP/TAB PO SCH (08:44)
[2016-11-27] MEDS: ONDANSETRON DISINTEGRATING 4 MG TAB PO PRN (08:46)
[2016-11-27] MEDS: morphINE SR 30 MG TAB PO SCH ×2 (08:49→21:40)
--- NOTE | 2016-11-27 08:52 | SOAPPROG ---
SOAP Progress Note Assessment/Plan: Assessment: Status post left total knee arthroplasty Plan: WBAT LLE PT/OT CHINMAY's/SCD's DVT prophlaxis - Warfarin Pain medicine as needed Ortho Stable Subjective: 76 year old female post op day #2 from a left total knee arthroplasty. She states she is doing okay and has been up and out of bed. Objective: Vital Signs Temp Pulse Resp BP Pulse Ox 37.1 C 75 16 126/64 H 98 11/27/16 07:41 11/27/16 07:41 11/27/16 07:41 11/27/16 08:44 11/27/16 07:41 Laboratory Results 11/27/16 04:15 11/26/16 11/27/16 11/28/16 05:59 05:59 05:59 Intake Total 4455 1250 Output Total 2345 Balance 2110 1250 PT 25.6 SEC (12.0-15.0) H D 11/27/16 04:15 INR 2.31 (0.83-1.16) H 11/27/16 04:15 Physical exam of the left knee: dressings clean, dry and intact. Normal sensation to light touch in the LLE. Distal Pulse present in the LLE. ICD10 Worksheet Patient Problems: Problems Problem Status Onset Abdominal pain Acute Arthrodesis status Acute Cauda equina syndrome Acute Chronic Disease Mgmt/Transitional Care Acute Chronic Disease Mgmt/Transitional Care Acute Low back pain Acute Lumbosacral stenosis Acute Pneumonia Acute UTI (urinary tract infection) Acute
[2016-11-27] MEDS ORDERED: VENLAFAXINE XR 150 MG CAP PO SCH (09:00)
[2016-11-27] MEDS: SENNOSIDES/DOCUSATE SODIUM TAB PO SCH ×2 (09:40→21:41)
[2016-11-27] MEDS: CYCLOBENZAPRINE 10 MG TAB PO PRN (11:27)
[2016-11-27] MEDS ORDERED: WARFARIN SODIUM 5 MG TAB PO SCH (16:00)
[2016-11-27] MEDS ORDERED: WARFARIN SODIUM 1 MG TAB PO ONE (16:00)
[2016-11-27] MEDS: NEBIVOLOL HCL 5 MG TAB PO SCH (21:40)
[2016-11-28 05:22] LABS: INR 2.41 (0.83-1.16); PROTIME(PATIENT) 26.5 SEC (12.0-15.0)
[2016-11-28] MEDS: ACETAMINOPHEN 325 MG TAB PO SCH ×2 (05:59→12:12)
[2016-11-28] MEDS: GABAPENTIN 300 MG CAP PO SCH ×2 (05:59→13:46)
[2016-11-28] MEDS: oxyCODONE IR 5 MG TAB PO PRN ×3 (06:00→13:31)
[2016-11-28 08:29] VITALS: RESP 18
[2016-11-28] MEDS: SENNOSIDES/DOCUSATE SODIUM TAB PO SCH (09:03)
[2016-11-28] MEDS: LISINOPRIL 40 MG TAB PO SCH (09:04)
[2016-11-28] MEDS: VITAMIN B COMPLEX 1 EA CAP/TAB PO SCH (09:04)
[2016-11-28] MEDS: ASCORBIC ACID 500 MG TAB PO SCH (09:04)
[2016-11-28] MEDS: VENLAFAXINE XR 150 MG CAP PO SCH (09:04)
[2016-11-28] MEDS: VENLAFAXINE XR 75 MG CAP PO SCH (09:04)
[2016-11-28] MEDS: CHOLECALCIFEROL VIT D3 1,000 UNITS TAB PO SCH (09:04)
[2016-11-28] MEDS: morphINE SR 30 MG TAB PO SCH (09:04)
[2016-11-28] MEDS: FAMOTIDINE 20 MG TAB PO SCH (09:04)
[2016-11-28 11:18] VITALS: BP 150/71; PULSE 84; TEMP 99; O2SAT 96
--- NOTE | 2016-11-28 11:49 | SOAPPROG ---
SOAP Progress Note Assessment/Plan: Assessment/Plan: s/p L TKA POD#3 - Continue pain management - Continue PT/OT - Warfarin for VTE chemoprophylaxis - SCDs/TEDs for mechanical prophylaxis - Dressing change today - Okay for discharge to [facility] rehab today 11/28/16 11:46 Subjective: Pt states she is doing well, has been working with PT. Pt denies fever, chills, chest pain, SOB, abdominal pain, N/V/D, numbness, tingling and calf pain. Objective: Vital Signs Temp Pulse Resp BP Pulse Ox 37.2 C 84 18 150/71 H 96 11/28/16 11:16 11/28/16 11:16 11/28/16 11:16 11/28/16 11:16 11/28/16 11:16 Laboratory Results 11/27/16 04:15 11/27/16 11/28/16 11/29/16 05:59 05:59 05:59 Intake Total 1250 275 380 Balance 1250 275 380 PT 26.5 SEC (12.0-15.0) H 11/28/16 04:11 INR 2.41 (0.83-1.16) H 11/28/16 04:11 Physical Exam - Physical Exam General Appearance: alert, no apparent distress Cardiac/Chest: normal peripheral pulses Skin: normal color, warm/dry, other (incision site c/d/i without erythema, calor or discharge) Extremities: swelling (localized L knee), No pedal edema, No calf tenderness, No Jermaine's sign Neuro/Psych: no motor/sensory deficits, alert, normal mood/affect, oriented x 3 ICD10 Worksheet Patient Problems: Problems Problem Status Onset Abdominal pain Acute Arthrodesis status Acute Cauda equina syndrome Acute Chronic Disease Mgmt/Transitional Care Acute Chronic Disease Mgmt/Transitional Care Acute Low back pain Acute Lumbosacral stenosis Acute Pneumonia Acute UTI (urinary tract infection) Acute
--- NOTE | 2016-11-28 11:51 | PDIAF ---
- Diagnosis Code Status: Full Code - Medication Management Discharge Medications: Medications to Continue on Transfer Ascorbic Acid [Vitamin C 500 mg (*)] 1,000 mg PO DAILY 01/23/16 [Last Taken ] Gabapentin [Neurontin 300 MG (*)] 300 mg PO Q8HRS 01/23/16 [Last Taken 01/22/16] Hydrocodone/Acetaminophen [Lortab 10-325 mg Tablet] 1 each PO Q6HRS PRN [Last Taken 01/22/16] Lisinopril [Zestril 40 mg (*)] 40 mg PO DAILY 01/23/16 [Last Taken 01/22/16] Nebivolol HCl [Bystolic] 10 mg PO HS 01/23/16 [Last Taken 01/22/16] Vitamin B Complex [B Complex] 1 each PO DAILY 01/23/16 [Last Taken 01/22/16] QUEtiapine FUMARATE [Seroquel 25 mg (*)] 25 - 50 mg PO HS PRN #0 tab 06/08/16 [ Last Taken Unknown] Cholecalciferol Vit D3 [Vitamin D3 (*)] 3,000 - 5,000 units PO DAILY 10/12/16 [ Last Taken Unknown] Herbals/Supplements -Info Only 1 ea PO DAILY 10/12/16 [Last Taken Unknown] Methylphenidate HCl [Ritalin 5mg (*)] 5 mg PO BID 10/12/16 [Last Taken Unknown] Venlafaxine HCl [Effexor] 50 mg PO DAILY 10/12/16 [Last Taken Unknown] Venlafaxine Xr [Effexor Xr 75MG (*)] 75 mg PO DAILY 10/12/16 [Last Taken 05:00] Discharge Medications: Refer to the Discharge Home Medication list for PRN reason. - Orders Services needed: Registered Nurse, Physical Therapy, Occupational Therapy Diet Recommendation: no restrictions on diet Diet Texture: Regular Texture Diet Ryland Stockings Discontinue Date: 2 weeks post-operatively Wound Care Instructions: Keep incision site clean, dry and covered Sutures/Claiborne Site: Keep clean, and dry. Covered for bathing, no soaking Activity/Weight Bearing Restrictions: WBAT BLE with walker Equipment: Walker - Labs/Radiology PT/INR Date: 11/30/16 (Bi-weekly on Mondays and ) - Follow Up Care Current Providers and Referrals: Wan Patel PA [Primary Care Provider] - Bishop Live MD [Medical Doctor] - follow up in 2 weeks (Follow up with Dr. Live in 10-14 days post op)
[2016-11-28] MEDS: CYCLOBENZAPRINE 10 MG TAB PO PRN (12:12)
--- NOTE | 2016-11-28 12:38 | ASDISCHSUM ---
Discharge Information Plan Status:SNF Medically Cleared to Leave: Discharge Date: D/C Disposition: ADT D/C Disposition:Home, Routine, Self-Care Projected Discharge Date:11/28/2016 11:00 AM Transportation at D/C:Wheelchair Van Discharge Delay Reason: Follow-Up Date:11/28/2016 11:00 AM Discharge Slot: Final Diagnosis: Placement Information Referral Type:*Snf/SNF Referral ID:[id number] Provider Name:[facility] Address 1:[address] Address 2: City:[place] Selection Factors: State:[place] Patient Contact Information Contact Name:SANTA Relationship: [address] [place] City:[facility] Phone: State/Zip Code:[place] [address] Email: Financial Information Financial Class: Primary Plan Desc:MEDICARE INPATIENT Primary Plan Number:[id number] Secondary Plan Desc:[facility] Secondary Plan Number:[id number] Assessment Information [facility] CM Progress Note CM Note CM Note Notes: Pt wants to d/c to [facility], referral sent. PT rec [facility], OT eval pending. Pt can d/c Wednesday to [facility] if medically stable. Date Signed: 11/26/2016 11:24 AM Electronically Signed By:CURTIS Way [facility] CM Progress Note CM Note CM Note Notes: Pt cleared to DC today to [facility]. Tony from [facility] arranged for their van to pick pt up at 2:30. Final orders faxed. Date Signed: 11/28/2016 12:37 PM Electronically Signed By:Dianna Dumont LCSW Intervention Information
[2016-11-28] MEDS ORDERED: WARFARIN SODIUM 2.5 MG TAB PO ONE (13:45)
[2016-11-28] MEDS ORDERED: WARFARIN SODIUM 2.5 MG TAB PO SCH (16:00)
--- NOTE | 2016-11-28 18:30 | PDDCSUM ---
Discharge Summary Discharge Summary: 76y/o F admitted to undergo a L TKA for L knee osteoarthritis. Pt received one dose of antibiotics prior to surgery, and for 24 hours following surgery. Pt tolerated the procedure well without any complications. Pain was well managed. Pt was evaluated by PT and OT. Warfarin for chemoprophylaxis and SCDs/TEDs for mechanical prophylaxis. Pt was discharged to [facility]. Pt will follow-up in clinic with Dr. Live 10-14 days post-operatively. Hospital course was otherwise uneventful.
== END 2016-11-28 14:51 | DRG 470 ==
LOC: F3N 05:56
PROVIDERS: ADMIT Orthopaedic Surgery Sports Medicine; ATTEND Orthopaedic Surgery Sports Medicine
PROC: 0SRD0J9 Replacement of Left Knee Joint with Synthetic Substitute, Cemented, Open Approach (ICD-10-PCS; principal; 2016-11-25 07:15)
DX: M17.12 Unilateral primary osteoarthritis, left knee (principal); M21.062 Valgus deformity, not elsewhere classified, left knee
CPT/HCPCS: 97110-GP; 97116-GP; 97161-GP; 97165-GO; 97530-GP; C1713; G8978-GP-CJ; G8979-GP-CI; G8987-GO-CK; G8988-GO-CI; J0171; J0690; J1100; J1170; J1885; J2250; J2370; J2405; J2704; J2795; J3010

== ENCOUNTER → 2017-03-10 | Outpatient (CLI) | payer OTHER | LOC: BHFA 14:45 | PROVIDERS: ATTEND Internal Medicine Cardiovascular Disease | DX: R06.02 Shortness of breath (principal) ==

== ENCOUNTER 2017-11-10 17:27 | Inpatient (IN) | payer OTHER ==
[2017-11-10] MEDS ORDERED: NS 1,000 ML IV ONE (19:24)
[2017-11-10] MEDS ORDERED: NS 500 ML IV ONE (19:36)
[2017-11-10 19:39] LABS: PLATELET COUNT 383 10^3/uL (150-400)
[2017-11-10] MEDS ORDERED: IOPAMIDOL (ISOVUE-300) 100 ML BTL ONE (19:44)
[2017-11-10 19:49] LABS: INR 1.05 (0.83-1.16); PROTIME(PATIENT) 13.9 SEC (12.0-15.0)
[2017-11-10] MEDS ORDERED: ONDANSETRON DISINTEGRATING 4 MG TAB PO PRN (21:11)
[2017-11-10] MEDS ORDERED: ONDANSETRON 4 MG/2 ML VIAL IVP PRN (21:11)
[2017-11-10] MEDS ORDERED: ACETAMINOPHEN 325 MG TAB PO PRN ×2 (21:11→22:11)
[2017-11-10] MEDS ORDERED: HYDROmorphONE/DILAUDID 1 MG/ML INJ IVP PRN (21:11)
[2017-11-10] MEDS ORDERED: oxyCODONE IR 5 MG TAB PO PRN (21:11)
[2017-11-10] MEDS ORDERED: PROMETHAZINE HCL 25 MG/ML INJ IVP PRN (21:11)
--- NOTE | 2017-11-10 22:24 | SOAPPROG ---
SOAP Progress Note Assessment/Plan: Assessment: Plan: 11/10/17 22:44 GI bleed: Etiology unclear, but given melena, wonder about stomach. Has been on Celebrex and aspirin. Initial lab without anemia and no repeat BM. Given mildly elevated WBC, moderate diverticulosis, and LLQ pain, wonder about diverticulitis though no suggestion of this on CT. No diarrhea. Also consider diverticular bleeding. For tonight, will hold aspirin, celebrex. Repeat labs in morning. Will not start antibiotics. Will likely need GI consult and will reassess in morning. Elevated lipase: pt has both RUQ and epigastric pain. LFTs normal and both pancreas and gallbladder normal-appearing on CT. Will recheck labs in morning. Hypertension: BP stable, no hypotension. Will continue lisinopril, Bystolic. RA with chronic pain: she is followed by Dr. Zheng, on chronic morphine. Didn' t get morning dose, so wonder if some of her symptoms are related to withdrawal. Will continue morphine. Depression: difficult to treat. Recently saw Wan Patel in the office with changes made to her regimen. She hasn't felt much improvement yet, but will continue with this regimen. PREET: on CPAP but having difficulty with machine, affecting quality of sleep. Will use nocturnal oxygen while in hospital. Hx recurrent UTI: will check UA given L flank pain. DVT prophylaxis: support carlin SCDs Dispo: admit to observation. 11/10/17 22:56 11/10/17 22:57 11/10/17 23:01 Subjective: 77 yo woman with hx of depression, IBS, RA, diverticulosis, and chronic pain on daily opioids had been constipated for 4-5 days and then woke up this morning and had black stool. Throughout the day, she has had several black BMs, approximately every 3-4 hours. Stool somewhat loose, but no diarrhea. She has felt very tired and weak, and hasn't been able to do much. Appetite poor. No fever or chills, but has felt cold. No nausea or vomiting, but stomach hasn't felt good. Abdomen painful, especially on the left side. She states she eats a lot of candy since tapering off hydrocodone 3 months ago. She remains on morphine. When her symptoms did not resolve, she came to ED. Her CBC shows a mildly elevated WBC with mild neutrophilia, normal H/H. Stool was heme positive. CMP is normal. Lipase elevated at 346. CT abd/pelvis with moderate diverticulosis without diverticulitis, normal pancreas and gallbladder. Previously noted findings include basilar bronchiectasis and scarring in lower left lung, hypodensities in liver. There is a small hiatal hernia and trace air in her bladder without suggestion of inflammation. She was given 500cc IV fluids , and morphine 2mg IV without much change in her pain. She hasn't taken any of her regular medications today including her morphine. She has not had BM since arriving in ED several hours ago, but doesn't feel well and is admitted for further evaluation. Objective: Vital Signs Temp Pulse Resp BP Pulse Ox 37.2 C 84 18 123/62 H 96 11/10/17 21:45 11/10/17 21:45 11/10/17 21:45 11/10/17 21:45 11/10/17 21:45 11/09/17 11/10/17 11/11/17 05:59 05:59 05:59 Intake Total 500 Output Total 0 Balance 500 PT 13.9 SEC (12.0-15.0) 11/10/17 19:24 INR 1.05 (0.83-1.16) 11/10/17 19:24 General: awake, alert, somewhat uncomfortable though NAD HEENT: pupils equal, reactive, EOMI. O/p moist, no lesions Neck: supple, no masses, adenopathy. No thyromegaly Lungs: LLL rales, otherwise clear, moving air well Cardiovascular: RRR without murmur Abdomen: +bowel sounds, soft. Diffusely tender but especially in RUQ, epigastrium, LLQ. Back: tender in L flank area over scar Extremities: no edema Skin: ecchymosis on R elbow, no rash Neurologic: alert, oriented, appropriate, moving all extremities Psychiatric: affect depressed ICD10 Worksheet Patient Problems: Problems Problem Status Onset Abdominal pain Acute Arthrodesis status Acute Cauda equina syndrome Acute Chronic Disease Mgmt/Transitional Care Acute Chronic Disease Mgmt/Transitional Care Acute Low back pain Acute Lumbosacral stenosis Acute Pneumonia Acute UTI (urinary tract infection) Acute
[2017-11-10] MEDS: morphINE SR 30 MG TAB PO SCH (22:46)
[2017-11-10] MEDS: NS 1,000 ML IV SCH (22:46)
--- NOTE | 2017-11-10 23:43 | GHP ---
DATE OF ADMISSION: 11/10/2017 HISTORY OF PRESENT ILLNESS: The patient is a 77-year-old woman with a history of depression, irritable bowel syndrome, rheumatoid arthritis, diverticulosis, and chronic pain on daily opioids, who had been constipated for the last 4-5 days and then woke up this morning and had black stool. Throughout the day, she has had several black bowel movements approximately every 3-4 hours. Stool is somewhat loose but no diarrhea. She has felt very tired and weak and has not been able to do much. Appetite is poor. She has not had any fever or chills but has felt cold. No nausea or vomiting, but stomach just has not felt good. Her abdomen is painful, especially on the left side. She states she eats a lot of candy since tapering off hydrocodone 3 months ago. She remains on morphine. When her symptoms did not resolve, she came to the emergency department. Her CBC shows a mildly elevated white blood cell count with mild neutrophilia, normal hemoglobin and hematocrit. Stool was heme positive. Complete metabolic panel is normal. Her lipase is elevated at 346. CT of the abdomen and pelvis shows moderate diverticulosis without diverticulitis, normal pancreas and gallbladder. Previously noted finding includes bibasilar bronchiectasis and scarring in the left lower lung and hypodensities in the liver. There is a small hiatal hernia and trace of air in her bladder without suggestion of inflammation. She was given 500 cc IV fluids and morphine 2 mg IV without much change in her pain. She has not taken any of her regular medications today including her morphine. She has not had a bowel movement since arriving in the emergency department several hours ago but does not feel well and is being admitted for further evaluation. 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 MEDICATIONS: Lamictal 100 mg daily; morphine sulfate extended release 30 mg twice daily; diazepam 2.5 mg daily p.r.n. (she has not taken this for several days); Ritalin 10 mg twice daily; venlafaxine 225 mg daily; lisinopril 40 mg daily; gabapentin 300 mg 2 tablets in the morning; cephalexin 250 mg daily; ondansetron 4 mg as needed; Bystolic 10 mg daily; aspirin 81 mg daily; celecoxib 200 mg daily. ALLERGIES: Biaxin, fentanyl, penicillins, promethazine, Remicade, codeine, Butrans, Macrobid, Abilify, aripiprazole. PAST SURGICAL HISTORY: Lumbar spine surgeries x3, appendectomy, hysterectomy. FAMILY HISTORY: Her father at 45 from trauma. Her mother at 92 from rheumatoid arthritis and leukemia. SOCIAL HISTORY: She is and lives with her . She quit smoking in 1993. She drinks alcohol occasionally. She has 2 children. REVIEW OF SYSTEMS: GENERAL: She feels very weak and tired. Appetite is diminished. RESPIRATORY: No cough, wheeze, or shortness of breath. CARDIOVASCULAR: No chest pain or irregular heart rhythms. GASTROINTESTINAL: See HPI. GENITOURINARY: Incontinent of urine. No dysuria or hematuria. MUSCULOSKELETAL: Chronic low back pain. SKIN: No rash. Ecchymosis on right elbow from recent fall. NEUROLOGIC: No headaches. Foggy brain due to Valium and poor memory due to Valium. PSYCHIATRIC: Significant depression. PHYSICAL EXAM: VITAL SIGNS: Temperature 37.2, pulse 84, respirations 18, blood pressure 123/62, O2 saturation 96% on room air. GENERAL: She is awake and alert, somewhat uncomfortable, though no acute distress. HEENT: Pupils equal, reactive. Extraocular movements are intact. Oropharynx is moist. No lesions. NECK: Supple without masses or adenopathy. No thyromegaly. LUNGS: Left lower lobe rales. Otherwise clear, moving air well. CARDIOVASCULAR: Regular rate and rhythm without murmur. ABDOMEN: Normal bowel sounds. Soft, diffusely tender but especially in the right upper quadrant, epigastrium, and left lower quadrant. BACK: She is tender in the left flank over an old scar. EXTREMITIES: No edema or cyanosis. SKIN: Ecchymoses on right elbow. No rash. NEUROLOGIC: Alert and oriented. Appropriate, moving all extremities. PSYCHIATRIC: Affect depressed. ASSESSMENT AND PLAN: 1. Gastrointestinal bleed, etiology unclear but, given melena, wonder about her stomach. She has been on Celebrex and aspirin. Initial lab is without anemia and no repeat bowel movements since coming to the hospital. Given her mildly elevated white blood cell count and moderate diverticulosis on CT scan and left lower quadrant pain, wonder about diverticulitis though no suggestion of this on CT. No diarrhea. Also consider diverticular bleeding. For tonight , we will hold aspirin and Celebrex. We will repeat labs in the morning. We will not start antibiotics. We will likely need gastroenterology consult and will reassess in the morning. 2. Elevated lipase. Patient has both right upper quadrant and epigastric pain. Liver function tests are normal, and both pancreas and gallbladder are normal appearing on CT. We will repeat labs in the morning. 3. Hypertension. Blood pressure is stable. No hypotension. Will continue lisinopril, Bystolic. 4. Rheumatoid arthritis with chronic pain. She is followed by Dr. Zheng on chronic morphine. She did not get her morning dose today, so wonder if some of her symptoms might be related to withdrawal. We will continue morphine. 5. Depression. Historically difficult to treat. Recently saw Wan Patel in the office, and he made changes to her regimen. She has not felt much improvement yet, but we will continue with this regimen. 6. Obstructive sleep apnea, on continuous positive airway pressure but having difficulty with machine affecting her quality of sleep. We will use nocturnal oxygen while she is in the hospital. 7. History of recurrent urinary tract infection. We will check urinalysis given left flank pain. 8. Deep venous thrombosis prophylaxis: Support hose, sequential compression devices. DISPOSITION: Admit to observation. /[id number]/MODL MTDD
[2017-11-10] MEDS: DIAZEPAM 5 MG TAB PO PRN (23:56)
[2017-11-11 05:19] LABS: PLATELET COUNT 325 10^3/uL (150-400)
[2017-11-11] MEDS: VENLAFAXINE XR 75 MG CAP PO SCH (08:21)
[2017-11-11] MEDS: VENLAFAXINE XR 150 MG CAP PO SCH (08:21)
[2017-11-11] MEDS: OMEGA-3 FATTY ACIDS 1,000 MG CAP PO SCH (08:21)
[2017-11-11] MEDS: ASCORBIC ACID 500 MG TAB PO SCH (08:21)
[2017-11-11] MEDS: morphINE SR 30 MG TAB PO SCH ×2 (08:21→21:18)
[2017-11-11] MEDS: NS 1,000 ML IV SCH (08:21)
[2017-11-11] MEDS: VITAMIN B COMPLEX 1 EA CAP/TAB PO SCH (08:22)
[2017-11-11] MEDS: CHOLECALCIFEROL VIT D3 2,000 UNITS TAB/CAP PO SCH (08:22)
[2017-11-11] MEDS: lamoTRIgine 100 MG TAB PO SCH (08:22)
[2017-11-11] MEDS: LISINOPRIL 40 MG TAB PO SCH (08:22)
[2017-11-11] MEDS: GABAPENTIN 300 MG CAP PO SCH (08:22)
[2017-11-11] MEDS ORDERED: Herbals/Supplements -Info Only PO SCH (09:00)
--- NOTE | 2017-11-11 09:55 | SOAPPROG ---
SOAP Progress Note Assessment/Plan: Assessment: Plan: 11/10/17 22:44 GI bleed: Etiology unclear, but given melena, wonder about stomach. Has been on Celebrex and aspirin. Initial lab without anemia and no repeat BM. Given mildly elevated WBC, moderate diverticulosis, and LLQ pain, wonder about diverticulitis though no suggestion of this on CT. No diarrhea. Also consider diverticular bleeding. For tonight, will hold aspirin, celebrex. Repeat labs in morning. Will not start antibiotics. Will likely need GI consult and will reassess in morning. Elevated lipase: pt has both RUQ and epigastric pain. LFTs normal and both pancreas and gallbladder normal-appearing on CT. Will recheck labs in morning. Hypertension: BP stable, no hypotension. Will continue lisinopril, Bystolic. RA with chronic pain: she is followed by Dr. Zheng, on chronic morphine. Didn' t get morning dose, so wonder if some of her symptoms are related to withdrawal. Will continue morphine. Depression: difficult to treat. Recently saw Wan Jorge in the office with changes made to her regimen. She hasn't felt much improvement yet, but will continue with this regimen. PREET: on CPAP but having difficulty with machine, affecting quality of sleep. Will use nocturnal oxygen while in hospital. Hx recurrent UTI: will check UA given L flank pain. DVT prophylaxis: support carlin, SCDs Dispo: admit to observation. 11/10/17 22:56 11/10/17 22:57 11/10/17 23:01 11/11/17 09:55 GI bleed: Decreased H/H partly dilutional but not likely all. No further BMs. Have spoken with Dr. Lou and he will do EGD this afternoon. WBC normal so suspicion for diverticulitis decreased Elevated lipase: resolved. Still some RUQ tenderness, but less than last night Hypertension: BP elevated this morning. Chronic pain: received morphine this morning. Depression: suspect this is contributing to overall picture Hx recurrent UTI: normal UA 11/11/17 09:57 Subjective: Continues to feel poorly. Achey all over and persistent abdominal pain. No further BMs. Tolerated clear liquids this morning. Objective: Vital Signs Temp Pulse Resp BP Pulse Ox 36.9 C 81 14 172/96 H 93 11/11/17 08:00 11/11/17 08:00 11/11/17 08:00 11/11/17 08:00 11/11/17 08:00 Laboratory Results 11/11/17 05:05 11/11/17 05:05 11/10/17 11/11/17 11/12/17 05:59 05:59 05:59 Intake Total 500 Output Total 0 Balance 500 PT 13.9 SEC (12.0-15.0) 11/10/17 19:24 INR 1.05 (0.83-1.16) 11/10/17 19:24 General: awake, alert, general discomfort but NAD Lungs: L basilar rales, o/w clear CV: RRR without murmur Abdomen: +bowel sounds, soft. Diffuse tenderness, worst in epigastrium and LLQ Extremities: no edema ICD10 Worksheet Patient Problems: Problems Problem Status Onset Abdominal pain Acute Arthrodesis status Acute Cauda equina syndrome Acute Chronic Disease Mgmt/Transitional Care Acute Chronic Disease Mgmt/Transitional Care Acute Low back pain Acute Lumbosacral stenosis Acute Pneumonia Acute UTI (urinary tract infection) Acute
[2017-11-11] MEDS ORDERED: NS 500 ML IV ONE (14:17)
[2017-11-11] MEDS ORDERED: PROPOFOL 200 MG/20 ML VIAL ONE (14:41)
[2017-11-11] MEDS ORDERED: EPINEPHrine 1 MG/10 ML SYR IVP ONE (14:54)
[2017-11-11] MEDS ORDERED: MIDAZOLAM 2 MG/2 ML VIAL ONE (15:16)
[2017-11-11] MEDS ORDERED: NALOXONE HCL 0.4 MG/ML INJ IVP PRN (15:25)
--- NOTE | 2017-11-11 15:28 | PDANEPAE ---
ANE History of Present Illness 77 year old woman with bloody stools for EGD ANE Past Medical History - Cardiovascular History Hx Hypertension: Yes Hx Arrhythmias: No Hx Chest Pain: No Hx Coronary Artery / Peripheral Vascular Disease: No Hx CHF / Valvular Disease: No Hx Palpitations: No - Pulmonary History Hx COPD: No Hx Asthma/Reactive Airway Disease: No Hx Recent Upper Respiratory Infection: No Hx Oxygen in Use at Home: No Hx Sleep Apnea: No Sleep Apnea Screening Result - Last Documented: Positive - Neurologic History Hx Cerebrovascular Accident: No Hx Seizures: No Hx Dementia: No - Endocrine History Hx Diabetes: No - Renal History Hx Renal Disorders: Yes Renal History Comment: URGE INCONT. PYELONEPHRITIS 1946 - Liver History Hx Hepatic Disorders: No - Neurological & Psychiatric Hx Hx Neurological and Psychiatric Disorders: Yes Neurological / Psychiatric History Comment: DEPRESSION/ANXIETY - Cancer History Hx Cancer: No - Congenital Disorder History Hx Congenital Disorders: No - GI History Hx Gastrointestinal Disorders: Yes Gastrointestinal History Comment: DIVERTICULOSIS. IBS - Other Health History Other Health History: ECZEMA ON ELBOWS. INTERMITTENT SCIATICA. EDEMA L LEG & ANKLE. ANKYLOSING SPONDYLITIS - Chronic Pain History Chronic Pain: Yes (SPINE & L LEG & FEET) - Surgical History Prior Surgeries: RT CATARACT 09/2013. LT FLANK HERNIA REPAIR 12/2012. RT TOTAL KNEE 07/2012. RT KNEE SCOPE. LAMINECTOMY & FUSION X 4 SURG. HYSTERECTOMY. RT BREAST BX X2 ANE Review of Systems Review of systems is: negative Review of Systems: ANE Patient History - Allergies Allergies/Adverse Reactions: infliximab [From Remicade] Allergy (Severe, Verified 11/10/17 17:34) RIGHT SIDED PARALYSIS, SEVERE REACTION Penicillins Allergy (Intermediate, Verified 11/10/17 17:34) Hives clarithromycin [From Biaxin] Allergy (Mild, Verified 11/10/17 17:34) nausea codeine [Codeine] Allergy (Mild, Verified 11/10/17 17:34) UPSET STOMACH, HEAD SPINS fentanyl Allergy (Mild, Verified 11/10/17 17:34) Vomiting oxycodone Allergy (Mild, Verified 01/23/16 12:12) - Home Medications Home Medications: Ascorbic Acid [Vitamin C 500 mg (*)] 500 mg PO DAILY 01/23/16 [Last Taken ] Gabapentin [Neurontin 300 MG (*)] 600 mg PO DAILY 01/23/16 [Last Taken 11/09/17] Lisinopril [Zestril 40 mg (*)] 40 mg PO DAILY 01/23/16 [Last Taken 11/09/17] Nebivolol HCl [Bystolic] 10 mg PO HS 01/23/16 [Last Taken 11/09/17] Vitamin B Complex [B Complex] 1 each PO DAILY 01/23/16 [Last Taken 11/09/17] Cholecalciferol Vit D3 [Vitamin D3 (*)] 4,000 units PO DAILY 10/12/16 [Last Taken 11/09/17] Herbals/Supplements -Info Only 1 ea PO DAILY 10/12/16 [Last Taken Unknown] Venlafaxine Xr [Effexor Xr 75MG (*)] 75 mg PO DAILY 10/12/16 [Last Taken ] Acetaminophen [Tylenol 325mg (*)] 650 mg PO Q6HRS PRN 11/10/17 [Last Taken Unknown] Aspirin EC [Aspirin EC 81 mg (*)] 81 mg PO DAILY 11/10/17 [Last Taken 11/09/17] Cephalexin [Keflex (*)] 250 mg PO HS 11/10/17 [Last Taken 11/09/17] Diazepam [Valium 5 MG (*)] 2.5 mg PO DAILY PRN 11/10/17 [Last Taken 3 Days Ago ~ 11/07/17] Mirtazapine 15 mg PO HS 11/10/17 [Last Taken 11/09/17] [place]-3 Fatty Acids [Fish Oil 1000 mg (*)] 1,000 mg PO DAILY 11/10/17 [Last Taken 11/09/17] Venlafaxine Xr [Effexor Xr] 150 mg PO DAILY 11/10/17 [Last Taken 11/09/17] celeCOXIB [Celebrex (*)] 200 mg PO DAILY PRN 11/10/17 [Last Taken 11/09/17] lamoTRIgine [LamICTAL 100 MG (*)] 100 mg PO DAILY 11/10/17 [Last Taken 11/09/17] methYLPHENIDATE HCL [Ritalin 10mg (*)] 10 mg PO BID 11/10/17 [Last Taken ] morphINE SR [MS Contin/Oramorph SR 30 mg (*)] 30 mg PO BID 11/10/17 [Last Taken 11/09/17] - NPO status NPO Since - Liquids (Date): 11/11/17 NPO Since - Liquids (Time): 09:00 NPO Since - Solids (Date): 11/10/17 NPO Since - Solids (Time): 12:00 - Smoking Hx Smoking Status: Former smoker ANE Labs/Vital Signs - Labs Result Diagrams: 11/11/17 05:05 11/11/17 05:05 - Vital Signs Blood Pressure: 164/88 Heart Rate: 71 Respiratory Rate: 16 O2 Sat (%): 93 Height: 160.02 cm Weight: 81.647 kg ANE Physical Exam - Airway Neck exam: FROM Mallampati Score: Class 2 Mouth exam: normal dental/mouth exam - Pulmonary Pulmonary: no respiratory distress - Cardiovascular Cardiovascular: regular rate and rhythym - ASA Status ASA Status: II ANE Anesthesia Plan Anesthesia Plan: MAC
[2017-11-11] MEDS ORDERED: PEG 3350/NA SULF,BICARB,CL/KCL (GAVILYTE-G) 4000 ML BTL PO ONE (15:44)
--- NOTE | 2017-11-11 15:55 | GIREPORT ---
[facility] - Endoscopy Department Patient Name: Brooke Harrison Procedure Date: 11/11/2017 2:01 PM Patient Type: Inpatient Attending MD/ ER Physician: Luis Lou MD Procedure: Upper GI endoscopy Indications: Note dictated, consult appreciated. "Black" stools, by desription. Hemo ccult positive. Her last colonoscopy was six years ago. Providers: Luis Lou MD Referring MD: CHRISTIE Castellanos; Georgia Ibrahim MD Medicines: See the Anesthesia note for documentation of the administered medicatio ns Complications: No immediate complications. Description of Procedure: After obtaining informed consent, the endoscope was passed under direct vision. Throughout the procedure, the patient's blood pressure, pulse, and oxygen saturations were monitored continuously. The Endoscope was intro duced through the mouth, and advanced to the second part of duodenum. Findings: Rectal dark to black stool. The esophagus was normal. Localized mildly erythematous mucosa without bleeding was found in the gastric antrum (almost certainly due to aspirin and celebrex use, and d oubt significant). Biopsies were taken with a cold forceps for Helicobacter pylori testing from the antrum and cardia. The examined duodenum was normal, except for what appeared to be a smal l lipoma in the third portion. Unable to get upper endoscope far enough t o view completely, although doubt ulcerated or a cause of bleeding. Estimated Blood Loss: Estimated blood loss: none. Post Op Diagnosis: - No obvious source of bleeding found. ? colonic Recommendation: - Await pathology results, to r/o H. pylori, but doubt. - colonoscopy tomorrow; prior, will repeat her EGD, using the pediatric colonoscope, to visualize further in the duodenum - recheck H/H in A.M. - Thank you for allowing me to help in the management of this patient. Attending Participation: I personally performed the entire procedure. Dasha Smith MD Luis Lou MD 11/11/2017 3:55:28 PM This report has been signed electronicallyPeter MD Dasha Number of Addenda: 0 Note Initiated On: 11/11/2017 2:01 PM [email or web address]
--- NOTE | 2017-11-11 16:03 | GCON ---
GI INPATIENT CONSULTATION DATE OF CONSULTATION: 11/11/2017 I was kindly requested by Dr. Georgia Ibrahim to see Brooke in consultation for a chief complaint of dark stool. She is a 77-year-old white female who states that she passed a black stool. With this, she has had a poor appetite. She denies fever or chills. She denies nausea or vomiting. She has some abdominal pain, on her left side. PAST MEDICAL HISTORY: 1. As above. 2. Hypertension. 3. Irritable bowel syndrome. 4. Chronic lower back pain. 5. Rheumatoid arthritis. 6. 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 7. Macular degeneration. 8. Coronary artery disease. 9. Anxiety. 10. Depression. 11. Sleep apnea. 12. Appendectomy. 13. Hysterectomy. 14. Chronic pain. OUTPATIENT MEDICATIONS: Include Lamictal, morphine, Valium, Ritalin, venlafaxine, lisinopril, gabapentin, cephalexin, Zofran, Bystolic, aspirin, and Celebrex. INPATIENT MEDICATIONS: Include Effexor, Bystolic, morphine, Keflex, Neurontin, Lamictal, Zestril, Ritalin, Remeron. ALLERGIES: Include Biaxin, fentanyl, penicillin, promethazine, Remicade, codeine, Macrobid, Abilify. SOCIAL HISTORY: She drinks alcohol occasionally. FAMILY HISTORY: Negative for similar black stool. REVIEW OF SYSTEMS: Positive pertinent review of systems as per my HPI. Otherwise, a complete review of systems is negative. PHYSICAL EXAM: CONSTITUTIONAL: Somewhat chronically ill-appearing woman. SKIN : Warm, dry. EYES: Pupils equal, round, reactive to light and accommodation. EARS, NOSE, MOUTH, THROAT, OROPHARYNX: Without masses, moist mucosa. CARDIOVASCULAR: Normal S2, normal PMI. RESPIRATORY: Lungs clear to auscultation and percussion anteriorly. GASTROINTESTINAL: Abdomen is profuse, nontender. NEUROLOGIC: Grossly nonfocal, cranial nerves grossly intact. PSYCHIATRIC: Orientation, insight appropriate. MUSCULOSKELETAL: Strength grossly normal throughout, normal station. LABORATORY DATA: Include initial hematocrit of 41.5%. Today, 36.8%. Normal platelet count. Urinalysis negative. Normal coags. Normal liver function test. Lipase slightly elevated on admission at 346, now 172. ASSESSMENT: Description of "black stool". Anemia, but mild only. Certainly, with her Celebrex and aspirin use, an upper gastrointestinal bleed is possible. This could include peptic ulcer disease, etc. PLAN: 1. Urgent upper endoscopy. Certainly, with her chronic pain, chronic opiate use, rheumatoid arthritis, sleep apnea, hypertension, coronary artery disease, etc., she is at increased risk for this procedure. However, suspected benefits outweigh the risks, and suspect she would do well. 2. Further management pending the above. Thank you for allowing me to help in the care of this patient. /[id number]/MODL MTDD
--- NOTE | 2017-11-11 16:43 | ASMTCMCOM ---
CM Note CM Note Notes: Met with pt re; dc poc and to discuss her feelings of isolation. Pt expressed to OT that due to her incontinence she is reluctant to leave home. She states her is retired, plays golf and is gone a lot. She is able to drive a bit, CM suggested she get connected with the [facility] in [place] to engage in social activites, checking out on line courses, and maybe Skyping with friends. CM also offered vivek visit but pt declines. PT eval pending, OT recommends home care, CM w/f. DC Plan: TBD Date Signed: 11/11/2017 04:42 PM Electronically Signed By:Kari Evans RN
--- NOTE | 2017-11-11 20:20 | SOAPPROG ---
LYNNE Progress Note Assessment/Plan: Assessment/Plan: Results of EGD discussed with the pt. She does not wish to pursue colonoscopy tomorrow, "too tired." She would rather do as an outpt. She understands the risks and benefits of her decision. - I will arrange outpt. colonoscopy - if Hct stable tomorrow AM, as I suspect, ok to d/c home, from a GI standpoint. Please call if we can otherwise be of further help [phone]). Thanks! 11/11/17 20:18 Objective: Vital Signs Temp Pulse Resp BP Pulse Ox 36.9 C 65 12 153/85 H 88 L 11/11/17 19:39 11/11/17 19:39 11/11/17 19:39 11/11/17 19:39 11/11/17 19:39 Laboratory Results 11/11/17 05:05 11/11/17 05:05 11/10/17 11/11/17 11/12/17 05:59 05:59 05:59 Intake Total 500 1230 Output Total 0 1 Balance 500 1229 PT 13.9 SEC (12.0-15.0) 11/10/17 19:24 INR 1.05 (0.83-1.16) 11/10/17 19:24 ICD10 Worksheet Patient Problems: Problems Problem Status Onset Abdominal pain Acute Arthrodesis status Acute Cauda equina syndrome Acute Chronic Disease Mgmt/Transitional Care Acute Chronic Disease Mgmt/Transitional Care Acute Low back pain Acute Lumbosacral stenosis Acute Pneumonia Acute UTI (urinary tract infection) Acute
[2017-11-11] MEDS ORDERED: CEPHALEXIN 250 MG CAP PO SCH (21:00)
[2017-11-11] MEDS ORDERED: NEBIVOLOL HCL 5 MG TAB PO SCH (21:00)
[2017-11-11] MEDS ORDERED: MIRTAZAPINE 15 MG TAB PO SCH (21:00)
[2017-11-11] MEDS: DIAZEPAM 5 MG TAB PO PRN (23:21)
[2017-11-12 07:32] VITALS: BP 136/70
[2017-11-12] MEDS: ASCORBIC ACID 500 MG TAB PO SCH (09:03)
[2017-11-12] MEDS: VENLAFAXINE XR 150 MG CAP PO SCH (09:03)
[2017-11-12] MEDS: morphINE SR 30 MG TAB PO SCH (09:04)
[2017-11-12] MEDS: GABAPENTIN 300 MG CAP PO SCH (09:04)
[2017-11-12] MEDS: lamoTRIgine 100 MG TAB PO SCH (09:04)
[2017-11-12] MEDS: VITAMIN B COMPLEX 1 EA CAP/TAB PO SCH (09:04)
[2017-11-12] MEDS: CHOLECALCIFEROL VIT D3 2,000 UNITS TAB/CAP PO SCH (09:04)
[2017-11-12] MEDS: OMEGA-3 FATTY ACIDS 1,000 MG CAP PO SCH (09:04)
[2017-11-12] MEDS: LISINOPRIL 40 MG TAB PO SCH (09:04)
[2017-11-12] MEDS: VENLAFAXINE XR 75 MG CAP PO SCH (09:05)
--- NOTE | 2017-11-12 09:12 | PDMN ---
Medical Necessity Medical necessity: [facility] [place] M182 GIB, Lower: 77 y/o w/ GI bleed, hemoccult +, GI consult, urgent EGD completed, etiology remains unclear, need to r/o H. pylori, colonoscopy scheduled. Pt remains hypertensive, on IV antiemetics, cont IV fluids. Elevated WBC noted, mildly anemic, HGB cont to get lower, elevated lipase. Pt will require additional MN for ongoing dx testing, monitoring and treatment. Hx HTN, IBS, chronic pain, RA, CAD. Switch to IP status per MD order 11/11/17 @ 7711
--- NOTE | 2017-11-12 09:47 | SOAPPROG ---
SOAP Progress Note Assessment/Plan: Assessment: 77 yo female admitted w/ black stool, heme + - s/p EGD which was nl, was to prep last night for colonoscopy this am but was too tired and chose not to do prep, Dr Lou notified and will have her do colonoscopy as outpt next week, h/h stable, she is feeling better, asa and celebrex being held, instructed no NSAIDs , will call if any issues or concerns over the w/e otherwise will plan on prep and colonoscopy next week. -RA - f/b Dr Zheng, cont on morphine for pain mngt -htn - on lisinopril, bystolic, continue -PREET - cpap nightly -h/o recurrent uti's on keflex qhs proph -mood - struggling w/ depression, is on lamictal and venlafaxine, seeing therapist but wants new suggestion and rec Cecily Howe, info in d/c paperwork, f/ u in clinic next week as well. -dispo - d/c home today if tolerate increased diet this am. Plan: 11/12/17 09:42 Subjective: Doing better overall, a bit more energy this am, hungry! Objective: Vital Signs Temp Pulse Resp BP Pulse Ox 36.9 C 62 19 136/70 H 91 L 11/12/17 07:31 11/12/17 07:31 11/12/17 07:31 11/12/17 07:31 11/12/17 07:31 Laboratory Results 11/12/17 05:45 11/11/17 11/12/17 11/13/17 05:59 05:59 05:59 Intake Total 800 Output Total 1 0 Balance 799 0 PT 13.9 SEC (12.0-15.0) 11/10/17 19:24 INR 1.05 (0.83-1.16) 11/10/17 19:24 Gen: A&O x 3, pleasant but a bit sad Heent: eomi Neck: soft supple Chest: cta b CV: rrr Abd: mildly ttp diffusely, nl bs Ext: no edema but ttp over shins Neuro: A&O Psych: has been struggling w/ depression - Pending Discharge Pending Discharge Within 24 Hours: Yes Pending Discharge Date: 11/13/17 Pending Discharge Time: 11:00 ICD10 Worksheet Patient Problems: Problems Problem Status Onset Chronic Disease Mgmt/Transitional Care Acute Abdominal pain Acute Low back pain Acute Lumbosacral stenosis Acute Arthrodesis status Acute Cauda equina syndrome Acute Chronic Disease Mgmt/Transitional Care Acute UTI (urinary tract infection) Acute Pneumonia Acute
--- NOTE | 2017-11-12 10:27 | GDS ---
DISCHARGE DIAGNOSIS: Heme-positive black stool. SUMMARY: Patient is a 77-year-old female who presented on 11/10/2017, to the ER with a history of co nstipation for 4 or 5 days prior to that day, and then with a few episodes of black stools that day, and presented to the ER. She had a CT abdomen and pelvis that shows diverticulosis, normal pancreas, normal gallbladder. She was given fluids, and her aspirin and Celebrex were held. Her H and H show ed a mild decrease of hemoglobin from 13.9 to 12.4 and hematocrit of 41.5 to 36.8. She had a consult ation with Dr. Luis Lou, who performed an EGD, which was clear. No etiology of the black tarry sto ols. She then was to stay overnight and prep for colonoscopy, but she was just feeling too tired, we ak and fatigued, and chose not to prep for the colonoscopy, with plans to do this as an outpatient if H and H stable. Next morning, her H and H were stable with a hemoglobin 12.3, hematocrit 38.0. Vit als stable and appetite improved, and diet advanced with her tolerating it well. So in conjunction w [facility], she will have a planned colonoscopy next week, since she is stable here in the hospital. She will be discharged with all of her medications except she needs to hold Celebrex and aspirin and any other NSAIDs. DISCHARGE MEDICATIONS: Otherwise, include Tylenol, vitamin C 500 daily, Keflex 250 at bedtime, vitam in D 4000 international units daily, Valium 2.5 mg p.o. daily, Neurontin 600 mg daily, lamotrigine 10 0 mg p.o. daily, Ritalin 10 mg p.o. twice daily, mirtazapine 15 mg p.o. at bedtime, lisinopril 40 mg p.o. daily, morphine, MS Contin 30 mg p.o. twice daily, Bystolic 10 mg p.o. at bedtime, Effexor 150 m g p.o. daily as well as 75 mg p.o. daily, vitamin B complex daily. She will follow up with [facility] next week [facility] if [facility] has any [facility] or concerns, and then she will follow up with her PCP, Wan Patel, in clinic after her colonoscopy. Also, she has been recommended to call Cecily Howe LCSW, for a fol lowup on counseling and therapy to help with depression. /[id number]/MODL
--- NOTE | 2017-11-12 11:34 | SOAPPROG ---
SOAP Progress Note Assessment/Plan: Assessment/Plan: No significant active bleeding. - I will arrange outpt. colonoscopy. We will also do a repeat EGD using a pediatric colonoscope, to get further into the small bowel, to better assess her submucosal lesion seen (suspect just a small lipoma). Please call if we can otherwise be of further help [phone]). Thanks! 11/12/17 11:32 Subjective: cc: heme positive stool Feels somewhat better. Hungry. No rigors, chills, sweats. Objective: Vital Signs Temp Pulse Resp BP Pulse Ox 36.9 C 62 19 136/70 H 91 L 11/12/17 07:31 11/12/17 07:31 11/12/17 07:31 11/12/17 07:31 11/12/17 07:31 Laboratory Results 11/12/17 05:45 11/11/17 11/12/17 11/13/17 05:59 05:59 05:59 Intake Total 800 Output Total 1 0 Balance 799 0 PT 13.9 SEC (12.0-15.0) 11/10/17 19:24 INR 1.05 (0.83-1.16) 11/10/17 19:24 Physical Exam - Physical Exam General Appearance: WD/WN, alert, no apparent distress EENT: PERRL/EOMI, normal ENT inspection, pharynx normal, TMs normal Neck: non-tender, full range of motion, supple, normal inspection Respiratory: chest non-tender, lungs clear, normal breath sounds Cardiac/Chest: normal peripheral pulses, regular rate, rhythm Peripheral Pulses: 2+: carotid (R), carotid (L), femoral (R), femoral (L), dorsalis-pedis (R), dorsalis-pedis (L) Abdomen: normal bowel sounds, non-tender, soft Pelvic Exam: deferred Rectal: deferred Back: Normal inspection Skin: normal color, warm/dry Lymphatic: no adenopathy Extremities: normal range of motion, non-tender, normal inspection, normal capillary refill Neuro/Psych: no motor/sensory deficits, alert, normal mood/affect, oriented x 3 ICD10 Worksheet Patient Problems: Problems Problem Status Onset Abdominal pain Acute Arthrodesis status Acute Cauda equina syndrome Acute Chronic Disease Mgmt/Transitional Care Acute Chronic Disease Mgmt/Transitional Care Acute Low back pain Acute Lumbosacral stenosis Acute Pneumonia Acute UTI (urinary tract infection) Acute
--- NOTE | 2017-11-12 14:42 | ASMTCMCOM ---
CM Note CM Note Notes: PT cleared pt for home, no other needs identified other than recommendations in previous notes. Pt will dc home w/support of . DC Plan: Independent Date Signed: 11/12/2017 02:26 PM Electronically Signed By:Kari Evans RN
--- NOTE | 2017-11-12 14:43 | ASMTLACE ---
LINA Length of stay for Answers: 2 days current admission Acuity / Level of Answers: No Care: Did the patient have an inpatient admission? Comorbidities - select Answers: Opioid dependence all that apply / Chronic pain Other Notes: Colon polyps; HTN # of Emergency department Answers: 1-2 visits in the last 6 months Social determinants Answers: Mental health diagnosis (anxiety, depression, pers onality disorders, etc.) Score: 11 Date Signed: 11/12/2017 02:27 PM Electronically Signed By:Kari Evans RN
--- NOTE | 2017-11-16 17:13 | GPROG ---
POSTANESTHESIA CARE UNIT NOTE DATE OF SERVICE: 11/15/2017 The patient was taken to the postanesthesia care unit. Report was given to the receiving registered nurse. The patient was in stable condition. She was utilizing oxygen by nasal cannula. Her vital s igns were stable. There were no complaints of nausea, vomiting, or pain. There were no complication s. /[id number]/MODL
== END 2017-11-12 13:39 | disposition home or self-care (01) | DRG 379 ==
LOC: INTOOBSV 20:53 → F3E 22:15 → OBSVTOIN 11-11 16:38
PROVIDERS: ADMIT Internal Medicine; ATTEND Internal Medicine
PROC: 0DB68ZX Excision of Stomach, Via Natural or Artificial Opening Endoscopic, Diagnostic (ICD-10-PCS; principal; 2017-11-11 14:00)
DX: K92.2 Gastrointestinal hemorrhage, unspecified (principal); K57.30 Diverticulosis of large intestine without perforation or abscess without bleeding; E86.9 Volume depletion, unspecified; I10 Essential (primary) hypertension; G89.29 Other chronic pain; M06.9 Rheumatoid arthritis, unspecified; F32.9 Major depressive disorder, single episode, unspecified; G47.33 Obstructive sleep apnea (adult) (pediatric); Z23 Encounter for immunization
CPT/HCPCS: 97116-GP; 97161-GP; 97166-GO; G0008; G0378; G8978-GP-CI; G8979-GP-CI; G8980-GP-CI; G8987-GO-CJ; G8988-GO-CI; J2250; J2270; J2405; J2704; Q9967

== ENCOUNTER 2017-12-09 16:28 | Inpatient (IN) | payer OTHER ==
[2017-12-09] MEDS ORDERED: ONDANSETRON DISINTEGRATING 4 MG TAB PO PRN ×2 (18:35→19:31)
[2017-12-09] MEDS ORDERED: LOPERAMIDE HCL 2 MG CAP PO PRN (18:35)
[2017-12-09] MEDS ORDERED: PEG 3350/NA SULF,BICARB,CL/KCL (GAVILYTE-G) 4000 ML BTL PO ONE (18:35)
[2017-12-09] MEDS ORDERED: LORazepam 0.5 MG TAB PO PRN (19:31)
[2017-12-09] MEDS ORDERED: ONDANSETRON 4 MG/2 ML VIAL IVP PRN (19:31)
[2017-12-09] MEDS ORDERED: diphenhydrAMINE 25 MG CAP PO PRN (19:31)
[2017-12-09] MEDS ORDERED: PROMETHAZINE HCL 25 MG/ML INJ IVP PRN (19:31)
[2017-12-09] MEDS ORDERED: HYDROmorphONE/DILAUDID 2 MG/ML INJ IVP PRN (19:31)
[2017-12-09] MEDS ORDERED: ACETAMINOPHEN 325 MG TAB PO PRN (19:31)
--- NOTE | 2017-12-09 19:43 | SOAPPROG ---
SOAP Progress Note Assessment/Plan: Assessment: Plan: 12/09/17 19:39 recurrent probable LGIB. Expect to see diverticular bleeding. Will await colonoscopy. D/w Dr Bateman. Planning on Golytely tonight and colon at 9 am tomorrow. depression stable, but she is anxious tonight RA--limited response to most agents, pred and celebrex see to work the best along with pain management chronic pain management--stable medium dose morphine schedule with 30 mg long acting BID Subjective: Pt complain of black stool beginning on Wednesday. Stool has become red as of today. Gut is irritated, somewhat sore, but not localized. She has been on celebrex for joint pain. No fever or chills. + nausea without vomiting. No rectal pain. Last colonoscopy was perhaps 6 years ago. EGD at last hospital stay about 3-4 weeks ago Objective: Vital Signs Temp Pulse Resp BP Pulse Ox 36.8 C 68 18 164/83 H 95 12/09/17 17:49 12/09/17 17:49 12/09/17 17:49 12/09/17 17:49 12/09/17 17:49 Gen: tired, anxious HEENT: wnl Lungs: slightly diminished, dry cough Heart: RRR no murmur Abd +bs soft. Mild left sided and epigastric TTP No masses Skin: WDI Joints: mild RA synovitis in MCP's LE's stable 1+ edema labs pending ICD10 Worksheet Patient Problems: Problems Problem Status Onset Abdominal pain Acute Arthrodesis status Acute Cauda equina syndrome Acute Chronic Disease Mgmt/Transitional Care Acute Chronic Disease Mgmt/Transitional Care Acute Low back pain Acute Lumbosacral stenosis Acute Pneumonia Acute UTI (urinary tract infection) Acute
[2017-12-09] MEDS ORDERED: NS 1,000 ML IV SCH (19:45)
[2017-12-09 20:27] LABS: PLATELET COUNT 351 10^3/uL (150-400)
[2017-12-09] MEDS ORDERED: PEG 3350/NA SULF,BICARB,CL/KCL (GAVILYTE-G) 4000 ML BTL ONE (20:49)
--- NOTE | 2017-12-09 20:52 | GHP ---
DATE OF ADMISSION: 12/09/2017 REASON FOR ADMISSION: Melena/hematochezia. HISTORY OF PRESENT ILLNESS: The patient is a 77-year-old female who developed black stool on Wednesday . This has become gradually progressively more red and loose stool over the past 48 hours. She feel s somewhat weak and tired. No profound shortness of breath. No fever or chills. No chest pain or p alpitations. Her gut, she is somewhat nauseous. She has not had vomiting. She feels somewhat uncom fortable intermittently in various locations. She feels more of the discomfort is perhaps on the lef t side of her abdomen. She had watery bloody stool earlier today and after that took 6 Imodium, whic h has stopped any other bowel pattern at this point. She has not had any rectal pain. No gross hemo rrhoids that she is aware. She feels somewhat worried and anxious given the current situation. PAST MEDICAL HISTORY: Significant for: 1. Similar admission on roughly November 12. She had what was intended to be an upper and lower pr ocedure. The lower prep was not completed and therefore she had an upper endoscopy which did not pam ntify any acute source of bleeding. An outpatient colonoscopy was planned, which unfortunately has n ot happened. She does have underlying rheumatoid arthritis and given really somewhat of a challengin g lack of response to many of the more potent DMARDs, she tends to do well on prednisone or Celebrex. She has been on Celebrex more recently, which has given her some joint pain relief but has probably exacerbated her bleeding tendency. 2. Depression and anxiety. 3. Previous alcohol dependency and sleep apnea, currently just on nighttime oxygen therapy. 4. Rheumatoid arthritis with poor control, primarily hand and foot symptomatology. 5. Chronic pain combined problems with low back pain with prior surgery, as well as chronic rheumato id arthritis pain. She is currently on morphine sulfate 30 mg twice daily. 6. Frequent diarrhea, intermittent bowel troubles have been an issue for a long time. 7. Hypertension has been well controlled on her current regimen. PAST SURGICAL HISTORY: Lumbar spine surgery 2003, 2006, 2008, appendectomy 2006, left abdominal wall hernia defect repair around 2010. Hysterectomy 1974. SOCIAL HISTORY: . She is abstaining from alcohol at this point and she is currently a nonsmo ker. Her , Genaro, lives with her. Their children are older and live out of state. ALLERGIES: Biaxin causes nausea. Tramadol, unknown reaction. Penicillins. Promethazine evidently causes dyskinesia. Remicade, demyelinating illness. Codeine, nausea. Although she does tolerate lo ng-acting morphine. FAMILY HISTORY: Father at 45 from trauma. Mother at 92, had rheumatoid arthritis and leuk emia. IMMUNIZATIONS: Up to date including recent flu shot. MEDICATIONS: Listed as per chart. REVIEW OF SYSTEMS: GENERAL: No fever or chills. She does admit to lightheadedness. She does admit to some headache which she attributes potentially due to her Zofran. She has not had visual changes . No difficulty chewing or swallowing. No mouth pain or erosion. She denies acute neck pain or de la o ited range of motion. She denies any acute lymphadenopathy. No unusual cough or wheeze. No signifi cant shortness of breath. No chest pain or palpitations. GI: As per HPI. URINARY SYSTEM: Chronic incontinence has been a longstanding challenge, intermittent urinary tract infections have been inte rspersed. No acute breast issues. No current skin issues. MUSCULOSKELETAL: Stable rheumatoid arth ritis and back pain symptomatology. PHYSICAL EXAM: VITAL SIGNS: Blood pressure 164/83, heart rate 68, respiratory rate 18, saturation 9 5% on room air, temperature 36.8. GENERAL: Pleasant, somewhat anxious female, resting comfortably i n bed. HEENT: She is wearing glasses. Pupils are symmetric. Oropharynx is somewhat dry. NECK: W ithout masses. No lymphadenopathy. No jugular venous pressure elevation. LUNGS: Diminished breath sounds. Minimally productive cough initially, then dry cough after that. HEART: Regular rate and rhythm. Occasional PVC. No murmur. ABDOMEN: Positive bowel sounds. Soft. Some tenderness/dis-ea se with palpation in the epigastric and left lower quadrant region. No guarding, rebound, or masses appreciated. Postsurgical changes are noted. BREAST AND PELVIC: Exam is otherwise deferred. RECTA L: Exam is deferred. SKIN: Warm, dry, intact. 2/4 DP pulses and radial pulses bilaterally. 1+ lo wer extremity edema about the shins is stable. ASSESSMENT: 1. Melena followed by hematochezia. This has been discussed with Dr. Bateman. Will begin GoLYTE LY prep this evening. We will check blood counts this evening. Anticipate colonoscopy at approximat blanquita 9 a.m. tomorrow. She will be n.p.o. after midnight. 2. Chronic pain. She is on morphine at 30 mg twice daily. We will continue this schedule. Add IV hydromorphone if needed. Follow pain symptoms through the course of her hospitalization. 3. Depression/anxiety. Continue her current medications. P.r.n. lorazepam is ordered in case she b ecomes more anxious. 4. Chronic rheumatologic pain. We will have to consider other agents depending upon what we find wi th her colonoscopy. For now patient will be admitted as observation with anticipated colonoscopy ksenia orrow. Further planning based on findings and results. /[id number]/MODL
[2017-12-09] MEDS: morphINE SR 30 MG TAB PO SCH (20:53)
[2017-12-09] MEDS: NEBIVOLOL HCL 5 MG TAB PO SCH (20:53)
[2017-12-09] MEDS: MIRTAZAPINE 15 MG ODTAB PO SCH (20:54)
[2017-12-09 21:06] LABS: INR 1.08 (0.83-1.16); PROTIME(PATIENT) 14.2 SEC (12.0-15.0)
[2017-12-10 05:40] LABS: PLATELET COUNT 356 10^3/uL (150-400)
[2017-12-10] MEDS ORDERED: LR 1,000 ML IV ONE (08:15)
--- NOTE | 2017-12-10 08:44 | ASMTLACE ---
LINA Acuity / Level of Answers: Yes Care: Did the patient have an inpatient admission? Comorbidities - select Answers: Opioid dependence all that apply / Chronic pain Other Notes: HTN; Diverticulitis # of Emergency department Answers: 1-2 visits in the last 6 months Social determinants Answers: History of substance abuse (ETOH, street drugs, prescription drugs, etc.) Mental health diagnosis (anxiety, depression, pers onality disorders, etc.) Score: 15 Date Signed: 12/10/2017 08:44 AM Electronically Signed By:Lenora Jeong
[2017-12-10] MEDS ORDERED: PROPOFOL 200 MG/20 ML VIAL ONE ×3 (09:02→09:28)
[2017-12-10] MEDS ORDERED: LR 500 ML IV PRN (09:08)
[2017-12-10] MEDS ORDERED: ONDANSETRON 4 MG/2 ML VIAL IVP PRN (09:08)
[2017-12-10] MEDS ORDERED: ALBUTEROL 3 ML DEYVIAL IH PRN (09:08)
[2017-12-10] MEDS ORDERED: NALOXONE HCL 0.4 MG/ML INJ IVP PRN ×2 (09:08→09:52)
--- NOTE | 2017-12-10 09:08 | PDANEPAE ---
ANE Past Medical History - Cardiovascular History Hx Hypertension: Yes Hx Arrhythmias: No Hx Chest Pain: No Hx Coronary Artery / Peripheral Vascular Disease: No Hx CHF / Valvular Disease: No Hx Palpitations: No - Pulmonary History Hx COPD: No Hx Asthma/Reactive Airway Disease: No Hx Recent Upper Respiratory Infection: No Hx Oxygen in Use at Home: No Hx Sleep Apnea: Yes Sleep Apnea Screening Result - Last Documented: Positive - Neurologic History Hx Cerebrovascular Accident: No Hx Seizures: No Hx Dementia: No - Endocrine History Hx Diabetes: No - Renal History Hx Renal Disorders: Yes Renal History Comment: URGE INCONT. PYELONEPHRITIS 1946 - Liver History Hx Hepatic Disorders: No - Neurological & Psychiatric Hx Hx Neurological and Psychiatric Disorders: Yes Neurological / Psychiatric History Comment: DEPRESSION/ANXIETY - Cancer History Hx Cancer: No - Congenital Disorder History Hx Congenital Disorders: No - GI History Hx Gastrointestinal Disorders: Yes Gastrointestinal History Comment: DIVERTICULOSIS. IBS - Other Health History Other Health History: ECZEMA ON ELBOWS. INTERMITTENT SCIATICA. EDEMA L LEG & ANKLE. ANKYLOSING SPONDYLITIS - Chronic Pain History Chronic Pain: Yes (SPINE & L LEG & FEET) - Surgical History Prior Surgeries: RT CATARACT 09/2013. LT FLANK HERNIA REPAIR 12/2012. RT TOTAL KNEE 07/2012. RT KNEE SCOPE. LAMINECTOMY & FUSION X 4 SURG. HYSTERECTOMY. RT BREAST BX X2 ANE Review of Systems Review of Systems: ANE Patient History - Allergies Allergies/Adverse Reactions: clarithromycin [From Biaxin] Allergy (Verified 12/09/17 18:15) nausea codeine [Codeine] Allergy (Verified 12/09/17 18:15) UPSET STOMACH, HEAD SPINS fentanyl Allergy (Verified 12/09/17 18:15) vomitting infliximab [From Remicade] Allergy (Verified 12/09/17 18:15) RIGHT SIDED PARALYSIS, SEVERE REACTION oxycodone Allergy (Verified 12/09/17 18:15) Vomiting Penicillins Allergy (Verified 12/09/17 18:15) Hives - Home Medications Home Medications: Gabapentin [Neurontin 300 MG (*)] 600 mg PO TID 12/09/17 [Last Taken Unknown] Herbals/Supplements -Info Only 1 ea PO DAILY 12/09/17 [Last Taken Unknown] Lisinopril [Zestril 40 mg (*)] 40 mg PO DAILY 12/09/17 [Last Taken Unknown] Loperamide HCl [Imodium 2 mg (*)] 2 mg PO PRN PRN 12/09/17 [Last Taken Unknown] Methylphenidate HCl [Ritalin 5mg (*)] 10 mg PO BID 12/09/17 [Last Taken Unknown] Mirtazapine [Remeron soltab 15 mg (*)] 15 mg PO HS 12/09/17 [Last Taken Unknown] Morphine Sulfate [Morphine Sulfate ER] 30 mg PO BID 12/09/17 [Last Taken Unknown ] Nebivolol HCl [Bystolic 5 mg (*)] 10 mg PO HS 12/09/17 [Last Taken Unknown] Ondansetron Odt [Zofran Odt 4 mg (*)] 4 mg PO Q6 PRN 12/09/17 [Last Taken Unknown] Venlafaxine Xr [Effexor Xr 75MG (*)] 75 mg PO DAILY 12/09/17 [Last Taken Unknown ] Venlafaxine Xr [Effexor Xr 75MG (*)] 150 mg PO DAILY 12/09/17 [Last Taken Unknown] celeCOXIB [Celebrex (*)] 200 mg PO BID PRN 12/09/17 [Last Taken Unknown] lamoTRIgine [LamICTAL 100 MG (*)] 100 mg PO DAILY 12/09/17 [Last Taken Unknown] - NPO status NPO Since - Liquids (Date): 12/10/17 NPO Since - Liquids (Time): 01:00 NPO Since - Solids (Date): 12/09/17 NPO Since - Solids (Time): 12:00 - Smoking Hx Smoking Status: Former smoker ANE Labs/Vital Signs - Labs Result Diagrams: 12/10/17 05:30 12/09/17 20:20 - Vital Signs Blood Pressure: 146/89 Heart Rate: 68 Respiratory Rate: 17 O2 Sat (%): 90 Height: 160.02 cm Weight: 81.647 kg ANE Physical Exam - Airway Neck exam: decreased ROM Mouth exam: normal dental/mouth exam - Pulmonary Pulmonary: no respiratory distress, no rales or rhonchi, clear to auscultation - Cardiovascular Cardiovascular: regular rate and rhythym, no murmur, rub, or gallop - ASA Status ASA Status: III ANE Anesthesia Plan Anesthesia Plan: GA with mask
[2017-12-10] MEDS ORDERED: LIDOCAINE 2% 2 ML INJ ONE (09:11)
--- NOTE | 2017-12-10 09:52 | POSTANESTH ---
Post Anesthetic Evaluation Cardiovascular Status: Normal, Stable, Similar to Pre-Op Cond Respiratory Status: Normal, Stable, Similar to Pre-op Cond. Level of Consciousness/Mental Status: Can Participate in Eval Pain Control: Adequate, Prn Tx Ordered Nausea/Vomiting Control: Adequate, Prn Tx Ordered Complications Possibly Related to Anesthesia: None Noted
--- NOTE | 2017-12-10 10:16 | GIREPORT ---
[facility] - Endoscopy Department Patient Name: Brooke Harrison Procedure Date: 12/10/2017 8:18 AM Patient Type: Inpatient Attending MD/ ER Physician: Gage Bateman MD Procedure: Colonoscopy Indications: Melena Providers: Gage Bateman MD Medicines: Propofol per Anesthesia Complications: No immediate complications. Description of Procedure: After obtaining informed consent, the scope was passed under direct vis ion. Throughout the procedure, the patient's blood pressure, pulse, and oxyg en saturations were monitored continuously. The Colonoscope was introduced through the anus and advanced to the terminal ileum. The colonoscopy wa s performed without difficulty. The patient tolerated the procedure well. The quality of the bowel preparation was excellent. Findings: The terminal ileum appeared normal. A single medium-sized angioectasia with bleeding on contact was found i n the cecum. Fulguration to ablate the lesion by bipolar probe was successful . To prevent bleeding post-intervention, two hemostatic clips were successfu lly placed. There was no bleeding at the end of the procedure. The descending colon, transverse colon, ascending colon, appendiceal or ifice and ileocecal valve appeared normal. A few small-mouthed diverticula were found in the sigmoid colon. A 7 mm polyp was found in the sigmoid colon. The polyp was sessile. The polyp was removed with a cold snare. Resection and retrieval were compl ete. The rectum appeared normal. The perianal and digital rectal examinations were normal. Estimated Blood Loss: Estimated blood loss: none. Post Op Diagnosis: - The examined portion of the ileum was normal. - A single colonic angioectasia. Treated with bipolar cautery. Clips we re placed. - The descending colon, transverse colon, ascending colon, appendiceal orifice and ileocecal valve are normal. - Diverticulosis in the sigmoid colon. - One 7 mm polyp in the sigmoid colon, removed with a cold snare. Resec karmen and retrieved. - The rectum is normal. Recommendation: - [facility]. - Clear liquid diet today. - Await pathology results. - Repeat colonoscopy is not recommended for screening purposes due to advanced age and concurrent health issues. - The findings and recommendations were discussed with the patient. Attending Participation: I personally performed the entire procedure. Gage Bateman MD Gaeg Bateman MD 12/10/2017 10:16:04 AM This report has been signed electronicallyGage Bateman MD Number of Addenda: 0 Note Initiated On: 12/10/2017 8:18 AM Total Procedure Duration Time 0 hours 28 minutes 57 seconds [email or web address]}
--- NOTE | 2017-12-10 10:37 | ASMTCMCOM ---
CM Note CM Note Notes: 12/10/2017 Case Management Note Attempted to meet w/pt and . Reviewed chart. Pt having colonscopy this morning. Pt admitted for melena/hematochezia. Recent admission on 11/11/2017 for similar reason. Discharge on 11/12 without any case management needs. There are PT and OT evals pending today. Pt is to [facility] [phone]. Case Management d/c poc: anticipating independent if cleared by PT and OT with follow up as directed. Case Management to follow. Date Signed: 12/10/2017 10:36 AM Electronically Signed By:Jill Cole RN
[2017-12-10] MEDS: lamoTRIgine 100 MG TAB PO SCH (11:08)
[2017-12-10] MEDS: VENLAFAXINE XR 150 MG CAP PO SCH (11:08)
[2017-12-10] MEDS: VENLAFAXINE XR 75 MG CAP PO SCH (11:08)
[2017-12-10] MEDS: LISINOPRIL 40 MG TAB PO SCH (11:09)
[2017-12-10] MEDS: morphINE SR 30 MG TAB PO SCH ×2 (11:16→20:38)
--- NOTE | 2017-12-10 11:34 | GCON ---
DATE OF CONSULTATION: 12/10/2017 REFERRING PHYSICIAN: WALKER Celis REASON FOR CONSULTATION: Bright red blood per rectum. HISTORY OF PRESENT ILLNESS: The patient is a 77-year-old female with multiple medical problems, including rheumatoid arthritis involving her back and hands with chronic back pain, sleep apnea on chronic home O2, chronic narcotic use for back pain, hypertension, history of functional diarrhea, anxiety, and depression who was recently hospitalized at [facility] in mid October with a GI bleed of unclear etiology. She was seen by my partner, Dr. Luis Lou on 11/12/2017. EGD was performed, which was normal, except a mild antral gastritis, which on biopsy was negative for H pylori. Total colonoscopy was recommended, albeit the patient declined preferring to have this done as an outpatient, albeit this was not accomplished prior to this admission. She was admitted last night with a 48 hour history of passage of frequent bloody bowel movements with generalized abdominal discomfort and nausea. She denied any syncopal episodes or any vomiting, and was admitted for further evaluation. 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 wheezing, morphine sulfate 30 mg p.o. b.i.d., Lamictal 100 mg p.o. daily, Zestril 40 mg p.o. daily, Imodium 2 mg p.o. q.i.d. p.r.n. diarrhea, Remeron 15 mg p.o. q.h.s., Bystolic 10 mg p.o. q.h.s., Zofran 4 mg p.o. q.4 hours p.r.n. nausea, Effexor XR 75 mg p.o. daily. ALLERGIES: Multiple allergies and drug intolerances, including Biaxin, tramadol , penicillin, promethazine, codeine. She also had an adverse reaction to Remicade with demyelinating disease. PAST MEDICAL HISTORY: Significant for rheumatoid arthritis that is intermittently treated with prednisone, as well as Celexa; chronic back pain on MS Contin; intermittent functional diarrhea, essential hypertension, depression , anxiety, COPD with sleep apnea and need for chronic home O2 at nighttime. PAST SURGICAL HISTORY: Significant for multiple lumbar spine surgeries in 2003 , 2005, 2008; appendectomy in 2006; left abdominal wall hernia repair in 2010; and total abdominal hysterectomy in 1978. FAMILY HISTORY: Negative for GI malignancies or peptic ulcer disease. SOCIAL HISTORY: She is . She is a nonsmoker, has not consumed alcohol in the recent past. She lives with her in [place]. She is retired. REVIEW OF SYSTEMS: Significant for chronic diarrhea, chronic bladder incontinence, depression, anxiety, chronic back pain and other arthritic complaints. Otherwise negative for comprehensive review of systems, other than noted in HPI. PAST ENDOSCOPIC RECORD: Other than as noted above, the patient did have a multiple colonoscopies in the past. Her last colonoscopy was performed on 10/19, by Dr. Pacheco, at which time AVM of the cecum was identified, though not cauterized, rare left-sided diverticula were noted, and a 5 mm sigmoid polyp , which was removed, which on histology was hyperplastic. Previous colonoscopies had revealed only diverticulosis and diminutive hyperplastic polyps with no history of adenomatous polyps. EXAM: GENERAL: Well-developed and well-nourished female in no apparent distress. VITAL SIGNS: Temperature 36.8 Celsius, pulse is 68 regular, blood pressure 146/89, respiratory rate is 17, O2 saturation is 98% on room air. INTEGUMENT: Clear. HEENT: Head atraumatic, normocephalic. Pupils equal, round, reactive to light. EOMs intact. Sclerae nonicteric. Mucous membranes moist. Dentition fair. NECK: Supple. Trachea midline. LYMPHATIC: No cervical or axillary adenopathy identified. PULMONARY: Lungs are clear to percussion and auscultation. CARDIOVASCULAR: Regular rhythm rate, normal S1, S2 without murmur. Peripheral pulses decreased bilaterally. Trace pedal edema. GASTROINTESTINAL: Abdomen mildly obese. Positive bowel sounds. No liver edge or spleen tip palpable. No fluid wave noted. Multiple well-healed surgical scars. EXTREMITIES: Without deformity. NEURO: Patient was alert, oriented x3. No focal neurologic deficits. LABORATORY DATA: CBC on admission showed white count 7.59, hemoglobin 13.9, hematocrit 41.4, platelets 351,000. Pro time 14.2, INR 1.08. Electrolytes normal. BUN 8, creatinine 0.6, glucose 108, calcium 9.5. Repeat CBC this morning was unchanged. IMPRESSION: 1. Recurrent gastrointestinal bleed with unremarkable EGD on last evaluation for gastrointestinal bleeding in October. Rule out diverticular bleed, rule out ischemic colitis, rule out bleeding from arteriovenous malformation of the colon. 2. Chronic back pain on chronic narcotics, which would make patient difficult to sedate with conscious sedation. 3. Chronic obstructive pulmonary disease/sleep apnea, on chronic home O2. 4. Depression and anxiety. 5. Rheumatoid arthritis with chronic arthritic complaints. RECOMMENDATIONS: 1. Colyte prep as ordered by Dr. Patel. 2. Urgent total colonoscopy with propofol anesthesia and assistance of anesthesiologist today. /[id number]/MODL MTDD
--- NOTE | 2017-12-10 15:37 | SOAPPROG ---
SOAP Progress Note Assessment/Plan: Assessment: 77 yo female admitted w/ LGIB for prep and colonoscopy - she had colonoscopy done this am, visited her in PACU right after and called pt's room later in day - per Dr Bateman he found a AVM which he clipped x 2 and one polyp likely hyperplastic. Wanted her watched overnight and advance diet to full liquids today then regular tomorrow am and if doing well likely d/c home tomorrow. -dw RN to advance diet to full liquids then to regular for breakfast if doing well, ambulate, oob. -dispo - likely d/c home tomorrow Plan: 12/10/17 15:23 Subjective: Sleepy in PACU, called room later and doing well and spoke w/ RN Objective: Vital Signs Temp Pulse Resp BP Pulse Ox 36.6 C 64 14 177/88 H 92 12/10/17 10:46 12/10/17 10:46 12/10/17 10:46 12/10/17 10:46 12/10/17 10:46 Laboratory Results 12/10/17 05:30 12/09/17 20:20 12/09/17 12/10/17 12/11/17 05:59 05:59 05:59 Intake Total 600 Output Total 1600 Balance -1600 600 PT 14.2 SEC (12.0-15.0) 12/09/17 20:20 INR 1.08 (0.83-1.16) 12/09/17 20:20 Gen: sleepy in PACU Neck: soft supple Chest: cta b CV: rrr ABD: nl bs/hypoactive Psych: sleepy from anesthesia - Pending Discharge Pending Discharge Within 24 Hours: Yes Pending Discharge Date: 12/11/17 Pending Discharge Time: 11:00 ICD10 Worksheet Patient Problems: Problems Problem Status Onset Chronic Disease Mgmt/Transitional Care Acute Abdominal pain Acute Low back pain Acute Lumbosacral stenosis Acute Arthrodesis status Acute Cauda equina syndrome Acute Chronic Disease Mgmt/Transitional Care Acute UTI (urinary tract infection) Acute Pneumonia Acute
[2017-12-10] MEDS: GABAPENTIN 300 MG CAP PO SCH ×2 (16:51→20:37)
--- NOTE | 2017-12-10 17:07 | PDMN ---
Medical Necessity Medical necessity: Change to IP, as of 12/10/17, per & MCG M-182; los >2 mn for ongoing management of lower GI bleed s/p colonoscopy; requiring further monitoring & advancement of diet as tolerated; hx recent hospitalization for GI bleed of unclear etiology
[2017-12-10] MEDS: MIRTAZAPINE 15 MG ODTAB PO SCH (20:37)
[2017-12-10] MEDS: NEBIVOLOL HCL 5 MG TAB PO SCH (20:37)
[2017-12-11] MEDS ORDERED: Herbals/Supplements -Info Only PO SCH (09:00)
[2017-12-11] MEDS: LISINOPRIL 40 MG TAB PO SCH (09:49)
[2017-12-11] MEDS: lamoTRIgine 100 MG TAB PO SCH (09:49)
[2017-12-11] MEDS: morphINE SR 30 MG TAB PO SCH (09:49)
[2017-12-11] MEDS: GABAPENTIN 300 MG CAP PO SCH (09:49)
[2017-12-11] MEDS: VENLAFAXINE XR 150 MG CAP PO SCH (09:49)
[2017-12-11] MEDS: VENLAFAXINE XR 75 MG CAP PO SCH (09:49)
[2017-12-11 11:49] VITALS: BP 137/68
--- NOTE | 2017-12-11 16:09 | ASDISCHSUM ---
Discharge Information Plan Status:Home with No Needs Medically Cleared to Leave:12/11/2017 Discharge Date:12/11/2017 02:52 PM CM D/C Disposition:Home, Routine, Self-Care ADT D/C Disposition:Home, Routine, Self-Care Projected Discharge Date:12/11/2017 02:52 PM Transportation at D/C:Family Discharge Delay Reason: Follow-Up Date:12/11/2017 02:52 PM Discharge Slot: Final Diagnosis: Placement Information Patient Contact Information Contact Name:SANTA Relationship: Address:[address] [place] Alternate Phone: State/Zip Code:[place] [address] Email: Financial Information Financial Class:Medicare Primary Plan Desc:MEDICARE OUTPATIENT Primary Plan Number:[id number] Secondary Plan Desc:[employer] Secondary Plan Number:[id number] Assessment Information LACE LACE Acuity / Level of Answers: Yes Care: Did the patient have an inpatient admission? Comorbidities - select Answers: Opioid dependence all that apply / Chronic pain Other Notes: HTN; Diverticulitis # of Emergency department Answers: 1-2 visits in the last 6 months Social determinants Answers: History of substance abuse (ETOH, street drugs, prescription drugs, etc.) Mental health diagnosis (anxiety, depression, pers onality disorders, etc.) Score: 15 Date Signed: 12/10/2017 08:44 AM Electronically Signed By:Lenora Jeong [facility] CM Progress Note CM Note CM Note Notes: 12/10/2017 Case Management Note Attempted to meet w/pt and . Reviewed chart. Pt having colonscopy this morning. Pt admitted for melena/hematochezia. Recent admission on 11/11/2017 for similar reason. Discharge on 11/12 without any case management needs. There are PT and OT evals pending today. Pt is to Genaro [phone]. Case Management d/c poc: anticipating independent if cleared by PT and OT with follow up as directed. Case Management to follow. Date Signed: 12/10/2017 10:36 AM Electronically Signed By:Jill Cole RN Case Management Discharge Plan Note Case Management Discharge Discharge Order Complete? Answers: Yes Patient to Obtain Answers: via Family Medications Transportation Arranged Answers: Family/Friends Discharge Comments Notes: Pt is s/p colonoscopy. She is discharging home independent with no CM needs. Date Signed: 12/11/2017 04:07 PM Electronically Signed By:CURTIS Aparicio Intervention Information Intervention Type:*Incorrect Registration Date of Service:12/09/2017 09:05 AM Patient Type:Inpatient Staff Member:JERMAINE Mejia Courtney Hours: Discipline: Severity: Comment: Intervention Type:*GILES-Signed Date of Service:12/10/2017 11:52 AM Patient Type:Observation Staff Member:Elvira Mejia Hours: Discipline: Severity: Comment: Intervention Type:*Occurence 72 Date of Service:12/09/2017 03:10 PM Patient Type:Inpatient Staff Member:JERMAINE Mejia Courtney Hours: Discipline: Severity: Comment:
--- NOTE | 2017-12-14 06:09 | GDS ---
REASON FOR ADMISSION: Heme-positive stools, needing a colonoscopy under anesthesia. ADDITIONAL DIAGNOSES: Colonic hemangioma, which was treated endoscopically. HOSPITAL COURSE: The patient was admitted. She had some issues after the procedure with increased s edation. She was kept overnight, had procedure, did well, and the next morning was discharged home. FOLLOWUP: She will follow up in the office in the next week or 2. /[id number]/MODL
== END 2017-12-11 14:52 | disposition home or self-care (01) | DRG 392 ==
LOC: INTOOBSV 17:30 → F3E 17:30 → OBSVTOIN 12-10 16:47
PROVIDERS: ADMIT Internal Medicine; ATTEND Internal Medicine
PROC: 0DBN8ZX Excision of Sigmoid Colon, Via Natural or Artificial Opening Endoscopic, Diagnostic (ICD-10-PCS; principal; 2017-12-10 09:00)
PROC: 0W3P8ZZ Control Bleeding in Gastrointestinal Tract, Via Natural or Artificial Opening Endoscopic (ICD-10-PCS; principal; 2017-12-10 09:00)
DX: D18.03 Hemangioma of intra-abdominal structures (principal); D12.5 Benign neoplasm of sigmoid colon; K57.30 Diverticulosis of large intestine without perforation or abscess without bleeding; I10 Essential (primary) hypertension; G47.30 Sleep apnea, unspecified; M06.9 Rheumatoid arthritis, unspecified
CPT/HCPCS: 97116-GP; 97161-GP; 97530-GP; G0378; G0379; G8978-GP-CI; G8979-GP-CI; G8980-GP-CI; J2270; J2704

== ENCOUNTER 2018-03-09 16:02 | Inpatient (IN) | payer OTHER ==
[2018-03-09] MEDS ORDERED: LACTULOSE 20 GM/30 ML UDCUP PO PRN (16:22)
[2018-03-09] MEDS ORDERED: MAGNESIUM HYDROXIDE 30 ML UDCUP PO PRN (16:22)
[2018-03-09] MEDS ORDERED: ONDANSETRON 4 MG/2 ML VIAL IVP PRN (16:22)
[2018-03-09] MEDS ORDERED: POLYETHYLENE GLYCOL 3350 17 GM PKT PO PRN (16:22)
[2018-03-09] MEDS ORDERED: BISACODYL 10 MG SUPP PR PRN (16:22)
[2018-03-09] MEDS ORDERED: ONDANSETRON DISINTEGRATING 4 MG TAB PO PRN (16:22)
[2018-03-09] MEDS ORDERED: DILTIAZEM 125 MG in D5W 125 ML IV SCH (16:30)
[2018-03-09] MEDS ORDERED: DILTIAZEM HCL/D5W 125 ML IV SCH (17:00)
--- NOTE | 2018-03-09 17:11 | SOAPPROG ---
SOAP Progress Note Assessment/Plan: Assessment: Plan: 03/09/18 20:20 Atrial fibrillation with rapid ventricular rate: no previous hx of atrial fibrillation. Check echo, CXR, labs. Begin diltiazem drip for rate control and hopefully she will convert. Will await CBC before initiating anti-coagulation given recent hx GI bleeding this morning. Would use heparin initially due to rapid reversibilty. Lower GI bleed: BRB per rectum x2 this morning. No suggestion of bleeding currently on exam, so will await CBC. She reports hx of hemorrhoids and hemorrhoidal bleeding in past. Viral syndrome: on Tamiflu and symptomatically seems better, though influenza not confirmed. Will finish course of Tamiflu. Depression/Anxiety: on lamictal, venlafaxine, ritalin, mirtazapine. Rheumatoid arthritis: on morphine sulfate, gabapentin, celebrex. Had been on prednisone recently. Hypertension: on lisinopril, bystolic DVT prophylaxis: CHINMAY gillis Dispo: admit to inpatient status for management of rapid atrial fibrillation and multiple co-morbidities. Anticipate 2 MNs in order to do adequate assessment. 03/09/18 20:22 03/09/18 20:39 03/09/18 21:03 03/09/18 21:06 Subjective: 77 yo woman with hx multiple medical problems was seen in the office today with a friend, as her is in [place]. She reports that she felt tired on Wednesday03/07/18. She didn't sleep well that night, and woke up the next morning feeling sick. Had ALLISON, head congestion, fever to a little over 100, and hurt all over. Appetite was off, and had an episode of loose stool. Called the office and was started on Tamiflu. Took 2 yesterday, and one this morning. Slept better last night. No further fever. Her friend has stayed with her and states her breathing was rough two nights ago, but better last night. Had some cough today, but not as much as yesterday, and has felt mildly SOB. She comes in today because she had two loose stools this morning with BRB. She took an anti- diarrheal medication and hasn't had any more loose stool. She feels mildly nauseated and her abdomen is sore. On exam, there was no evidence of ongoing rectal bleeding, but she was noted to be in rapid atrial fibrillation, with a rate of 143. This is a new diagnosis for her and the reason for admission. Objective: General: well-developed, well-nourished woman, uncomfortable, tired HEENT: NC/AT. PERRL, EOMI. External auditory canals clear, TMs clear. Diffuse tenderness over maxillary sinuses. Oral mucosa moist. O/p without erythema, exudate. Neck: supple, no masses, adenopathy, thyroid NT. Lungs: clear bilaterally. No wheezes, rales Cardiovascular: irregularly irregular, tachycardic Abdomen: +bowel sounds, soft. Mild diffuse tenderness, no hepatosplenomegaly, masses. Rectal: external hemorroids, no thrombosis, no bleeding. Normal tone, no masses. Stool brown, guaiac negative. Skin: no rashes Extremities: no edema, cyanosis. Resolving hematoma LLE Neurologic: alert, oriented, unable to get up to exam table without assistance, able to walk with cane, no focal weakness, no confusion Psychiatric: pleasant, cooperative, mood depressed ICD10 Worksheet Patient Problems: Problems Problem Status Onset Abdominal pain Acute Arthrodesis status Acute Cauda equina syndrome Acute Chronic Disease Mgmt/Transitional Care Acute Chronic Disease Mgmt/Transitional Care Acute Low back pain Acute Lumbosacral stenosis Acute Pneumonia Acute UTI (urinary tract infection) Acute
--- NOTE | 2018-03-09 17:55 | ECHO ---
[email or web address] [address] [address] Main: [phone] Fax: Transthoracic Echocardiogram Name: NADYA TEJADA MR#: [id number] Study Date: 03/09/2018 Study Time: 05:05 PM Date of : 1940 Age: 77 year(s) Height: 160 cm (63 in.) Weight: 79.38 kg (175 lb.) BSA: 1.83 m2 Gender: Female Examination: Echo Indication: new onset atrial fibrillation Image Quality: Adequate Contrast: Requested by: Georgia Ibrahim BP: 154 mmHg/108 mmHg Heart Rate: Rhythm: Indication: new onset atrial fibrillation Procedure Staff [employer] Distributor: Danika Dixon [facility] Reading Physician: Judie Melgar MD Requesting Provider: Conclusions: Normal size left ventricle. Mild to moderate LVH. Normal global systolic LV function. EF is 60 %. No regional wall motion abnormality. Grade 1 diastolic dysfunction (abnormal relaxation). Normal size right ventricle. Normal RV function. Trivial pericardial effusion. No significant valvular disease. Compared with 03/10/2017 LVH now present. RV is no longer dilated. Atria are now normal size previously mildly dilated. Tricuspid regurgitation was noted on prior study moderate in severity with severe pulmonary hypertension. No pulmonary hypertension could be assessed on this study due to inadequate TR jet. Measurements: Chambers Valvular Assessment AV/MV Valvular Assessment TV/PV Normal Normal Normal Name Value Range Name Value Range Name Value Range Ao Sandie (2D): 3.0 cm (1.4 cm-2.6 AV Vmax: 1.14 m/s (1 m/s-1.7 PV Vmax: 0.68 m/s (0.6 m/s-0.9 cm) m/s) m/s) IVSd (2D): 1.3 cm (0.6 cm-1.1 AV maxP mmHg ( - ) PV PGmax: 2 mmHg ( - ) cm) AV meanP mmHg ( - ) LVDd (2D): 3.8 cm (3.9 cm-5.3 SANTI (VTI): 2.8 cm ( - ) cm) MV E Vmax: 0.52 m/s ( - ) LVDs (2D): 2.8 cm (2.1 cm-4 MV A Vmax: 0.88 m/s ( - ) cm) MV E/A: 0.59 ( - ) LVPWd (2D): 1.3 cm ( - ) MV PHT: 0.058 s ( - ) LVOTd 2.0 cm 2.0 cm mm MVA (PHT): 3.8 s ( - ) LVEF (BP): 60 % (>=55 %) Patient: NADYA TEJADA Study Date: 03/09/2018 Page 1 of 2 05:05 PM RVDd(2D): 3.1 cm (1.9 cm-3.8 cmmm) Continued Measurements: Chambers Valvular Assessment AV/MV Name Value Name Value LADs: 3.4 cm MV DecTime: 194 m/s LADs Lon.0 cm MV E' Septal: 0.05 m/s LA Area: 15.8 cm2 MV E/E' Septal: 11.30 LA Volume: 41 ml MV E/E' Lateral: 6.60 LA Volume Index: 22.4 ml/m2 RA Area: 15.0 cm2 Additional Vessels Name Value Ao Ascendin.1 cm Inferior Vena Cava: 1.3 cm Findings: Left Ventricle: Normal size left ventricle. Mild to moderate LVH. Normal global systolic LV function. EF is 60 %. No regional wall motion abnormality. Grade 1 diastolic dysfunction (abnormal relaxation). Right Ventricle: Normal size right ventricle. Normal RV function. Left Atrium: The left atrium is normal in size. Right Atrium: The right atrium is normal in size. Mitral Valve: The mitral valve is normal in appearance and function. Trivial mitral valve regurgitation. No mitral stenosis is present. Aortic Valve: The aortic valve is tri-leaflet. There is no significant aortic valve regurgitation. No aortic valve stenosis is present. Tricuspid Valve: The tricuspid valve is normal in appearance and function. Trivial tricuspid valve regurgitation. Pulmonic Valve: The pulmonic valve is normal in appearance and function. There is no pulmonic regurgitation seen. Aorta: The aorta is normal. Normal size aortic root measuring 3.0 cm. Normal size ascending aorta measuring 3.1 cm. IVC: The IVC is normal sized. Pericardium: Trivial pericardial effusion. There is pericardial fat. No pleural effusion. (No Signature Object) Patient: NADYA TEJADA Study Date: 03/09/2018 Page 2 of 2 05:05 PM [id number]
[2018-03-09 18:08] LABS: INR 1.09 (0.83-1.16); PROTIME(PATIENT) 14.3 SEC (12.0-15.0)
[2018-03-09 18:23] LABS: PLATELET COUNT 350 10^3/uL (150-400)
[2018-03-09] MEDS: OSELTAMIVIR PHOSPHATE 75 MG CAP PO SCH (18:44)
[2018-03-09] MEDS: ACETAMINOPHEN 325 MG TAB PO PRN (19:43)
[2018-03-09] MEDS: SENNOSIDES/DOCUSATE SODIUM TAB PO SCH (19:45)
[2018-03-09] MEDS: NS 1,000 ML IV SCH (19:46)
[2018-03-09] MEDS ORDERED: LOPERAMIDE HCL 2 MG CAP PO PRN (20:11)
[2018-03-09] MEDS ORDERED: NEBIVOLOL HCL 5 MG TAB PO SCH (21:00)
[2018-03-09] MEDS ORDERED: MIRTAZAPINE 15 MG ODTAB PO SCH (21:00)
[2018-03-09] MEDS ORDERED: OSELTAMIVIR PHOSPHATE 75 MG CAP PO SCH (21:00)
--- NOTE | 2018-03-09 21:37 | GHP ---
DATE OF ADMISSION: 03/09/2018 HISTORY OF PRESENT ILLNESS: The patient is a 77-year-old woman with a history of multiple medical pr oblems who was seen in the office today with her friend as her is in [place]. She reports miguel t she felt tired on Wednesday, March 07, 2018. She did not sleep well that night and then woke up the next morning feeling sick. She had headache, head congestion, fever to a little over 100, and hurt a ll over. Her appetite was off and she had an episode of loose stool. She called the office and was started on Tamiflu. She took 2 tablets yesterday and 1 this morning. She slept better last night. She has not had any further fever. Her friend has stayed with her and states her breathing was rough 2 nights ago, but was better last night. She has had some cough today, but not as much as she did y , and has felt mildly short of breath. She comes in today because she had 2 loose stools thi s morning with bright red blood. She has taken antidiarrheal medication and has not had any further loose stool. She currently feels mildly nauseated and her abdomen is sore. On exam, there was no ev idence of ongoing rectal bleeding, but she was noted to be in rapid atrial fibrillation with a rate o f 143. This is a new diagnosis for her and is the reason for her admission. PAST MEDICAL HISTORY: Colon polyps, diverticulosis, hypertension, irritable bowel, low-back pain, rh eumatoid arthritis, transverse myelitis, secondary to Remicade, macular degeneration, anxiety, depres ge[place], obstructive sleep apnea on CPAP, immunoglobulin deficiency, constipation, coronary artery disea se, osteoporosis. MEDICATIONS: Venlafaxine 225 mg daily, lisinopril 40 mg daily, gabapentin 600 mg 3 times daily, mirt azapine 15 mg at bedtime, Lamictal 100 mg twice daily, ondansetron 4 mg every 4 to 6 hours as needed, Bystolic 10 mg daily, morphine sulfate extended release 30 mg every 12 hours, Ritalin 10 mg twice a day, Tamiflu 75 mg twice daily, Prolia, Celebrex 200 mg twice daily, MiraLAX 17 g daily as needed, mi lk of magnesia 30 mils daily as needed, lactulose 20 g three times daily p.r.n. constipation. ALLERGIES: Biaxin causes nausea; transdermal fentanyl, penicillin, promethazine causes dyskinesia; R emicade, codeine causes nausea and vomiting; Butrans patch, developed rash from adhesive; Macrobid, g lobal dysfunction; Abilify, diarrhea; aripiprazole, diarrhea. SURGICAL HISTORY: Lumbar spine surgery x3, appendectomy, hysterectomy. FAMILY HISTORY: Her father at the age of 45 from trauma. Her mother at 92 from rheumatoid arthritis and leukemia. SOCIAL HISTORY: She is a nonsmoker having quit in 1993. She drinks occasional alcohol. She is mack ied and lives with her . She is retired. REVIEW OF SYSTEMS: GENERAL: Fever as noted in HPI. Not sleeping well. Poor appetite, myalgias. H EENT: Mild head congestion. RESPIRATORY: Cough, nonproductive. Some shortness of breath. CARDIOV ASCULAR: No chest pain. No arrhythmia. GASTROINTESTINAL: Nausea without vomiting. Loose stool as noted. Bright red blood per rectum as noted. Abdominal discomfort. MUSCULOSKELETAL: Chronic pain in her back, as well as from her rheumatoid arthritis. She also has significant right hip pain. SK IN: Bruise on left upper thigh. Otherwise, no rash. NEUROLOGIC: Mild headache. Some difficulty w ith balance and walking. No focal weakness and no confusion. PSYCHIATRIC: Chronic anxiety and depr ession, difficulty sleeping. PHYSICAL EXAMINATION: VITAL SIGNS: In the office, blood pressure 152/100, weight 189, temperature 9 8.6, heart rate 74 initially, up to 143 subsequently respiratory rate 16, O2 saturation 91% on room a ir. GENERAL: She is a well-developed, well-nourished woman who is in company uncomfortable and tire d. HEENT: Normocephalic, atraumatic. Pupils are equal, round, reactive to light. 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 There is diffuse tenderness over her maxill conrado sinuses. Oral mucosa is moist. Oropharynx without erythema or exudate. NECK: Supple without m asses or adenopathy. Thyroid nontender. LUNGS: Clear bilaterally. No wheezes or rales. CARDIOVAS CULAR: Irregularly irregular, tachycardic. ABDOMEN: Normal bowel sounds and soft. Mild diffuse te nderness. No hepatosplenomegaly or masses. RECTAL: External hemorrhoids. No thrombosis. No bleed ing. Normal tone. No masses. Stool is brown and guaiac negative. SKIN: Without rashes. EXTREMIT IES: No edema or cyanosis. Resolving hematoma, left lower extremity. NEUROLOGIC: She is alert and oriented. She is not able to get up to the exam table without assistance. She is able to walk with a cane. No focal weakness noted. No confusion. PSYCHIATRIC: She is pleasant and cooperative. Mo od is depressed. ASSESSMENT/PLAN: 1. Atrial fibrillation with rapid ventricular rate. No prior history of atrial fibrillation. We wi ll check echocardiogram, chest x-ray, and labs. Begin diltiazem drip for rate control, and hopefully , she will convert spontaneously. Will await CBC before initiating anticoagulation given recent hist ory of gastrointestinal bleeding this morning. I would use heparin initially due to rapid reversibil ity. 2. Lower gastrointestinal bleed, bright red blood per rectum x2 this morning. No suggestion of blee ding currently on exam, so we will await CBC. She does report a history of hemorrhoids and hemorrhoi alda bleeding. 3. Viral syndrome. Currently on Tamiflu and symptomatically seems better. Though influenza not con firmed, will finish course of Tamiflu. 4. Depression/anxiety, on Lamictal, venlafaxine, Ritalin, and mirtazapine. We will continue these. 5. Rheumatoid arthritis, on morphine sulfate, gabapentin, and Celebrex. She has been on prednisone recently, but does not appear to be currently. 6. Hypertension, on lisinopril and Bystolic. 7. Deep venous thrombosis prophylaxis, CHINMAY gillis. DISPOSITION: Will admit to inpatient status for management of rapid atrial fibrillation and multiple comorbidities. Anticipate 2 midnights in order to do adequate assessment. /[id number]/MODL
[2018-03-09] MEDS: GABAPENTIN 300 MG CAP PO SCH (22:07)
[2018-03-09] MEDS: morphINE SR 30 MG TAB PO SCH (22:07)
[2018-03-10] MEDS: NS 1,000 ML IV SCH (03:30)
[2018-03-10] MEDS: ACETAMINOPHEN 325 MG TAB PO PRN (06:30)
[2018-03-10 07:46] VITALS: BP 166/96
--- NOTE | 2018-03-10 07:52 | PDMN ---
Medical Necessity Medical necessity: Pt meets INPT criteria per MD as of 03/09/18 and MCG M-505 Atrial Fibrillation (with RVR, no prior hx of afib, requiring diltiazem drip for rate control; lower GI bleed, viral syndrome; comorbid depression/anxiety, RA, htn, PREET, immunoglobulin deficiency; hx DVT).
[2018-03-10] MEDS: OSELTAMIVIR PHOSPHATE 75 MG CAP PO SCH (08:21)
[2018-03-10] MEDS: morphINE SR 30 MG TAB PO SCH (08:21)
[2018-03-10] MEDS: GABAPENTIN 300 MG CAP PO SCH (08:21)
[2018-03-10] MEDS: SENNOSIDES/DOCUSATE SODIUM TAB PO SCH (08:22)
[2018-03-10] MEDS ORDERED: LISINOPRIL 40 MG TAB PO SCH (09:00)
[2018-03-10] MEDS ORDERED: lamoTRIgine 100 MG TAB PO SCH (09:00)
[2018-03-10] MEDS ORDERED: VENLAFAXINE XR 150 MG CAP PO SCH (09:00)
[2018-03-10] MEDS ORDERED: ASPIRIN EC 81 MG TAB PO SCH (09:00)
[2018-03-10] MEDS ORDERED: Herbals/Supplements -Info Only PO SCH (09:00)
[2018-03-10] MEDS ORDERED: VENLAFAXINE XR 75 MG CAP PO SCH (09:00)
--- NOTE | 2018-03-10 09:13 | SOAPPROG ---
SOAP Progress Note Assessment/Plan: Assessment: Plan: 03/09/18 20:20 Atrial fibrillation with rapid ventricular rate: no previous hx of atrial fibrillation. Check echo, CXR, labs. Begin diltiazem drip for rate control and hopefully she will convert. Will await CBC before initiating anti-coagulation given recent hx GI bleeding this morning. Would use heparin initially due to rapid reversibilty. Lower GI bleed: BRB per rectum x2 this morning. No suggestion of bleeding currently on exam, so will await CBC. She reports hx of hemorrhoids and hemorrhoidal bleeding in past. Viral syndrome: on Tamiflu and symptomatically seems better, though influenza not confirmed. Will finish course of Tamiflu. Depression/Anxiety: on lamictal, venlafaxine, ritalin, mirtazapine. Rheumatoid arthritis: on morphine sulfate, gabapentin, celebrex. Had been on prednisone recently. Hypertension: on lisinopril, bystolic DVT prophylaxis: CHINMAY gillis Dispo: admit to inpatient status for management of rapid atrial fibrillation and multiple co-morbidities. Anticipate 2 MNs in order to do adequate assessment. 03/09/18 20:22 03/09/18 20:39 03/09/18 21:03 03/09/18 21:06 03/10/18 09:13 Atrial fibrillation with RVR: converted spontaneously without diltiazem. CXR with mild interstitial edema, though less than previously. Echo without significant change from previous. BNP, troponin normal. Stable for d/c and will plan on f/u in office early next week. Would like to do 30 day monitor to assess frequency of atrial fibrillation. Lower GI bleed: no further BMs. H/H normal. Viral syndrome: mild symptoms at this point. Finish Tamiflu. Dispo: will d/c to home. 03/10/18 09:14 03/10/18 09:15 Subjective: Feeling much better this morning. Still a little dizzy but overall much better. She converted spontaneously to sinus rhythm on arrival to the hospital yesterday. Has remained in sinus rhythm since, with occasional ectopy. Objective: Vital Signs Temp Pulse Resp BP Pulse Ox 37.0 C 65 19 166/96 H 97 03/10/18 07:44 03/10/18 07:44 03/10/18 07:44 03/10/18 08:22 03/10/18 07:44 Laboratory Results 03/09/18 17:50 03/09/18 17:50 03/09/18 03/10/18 03/11/18 05:59 05:59 05:59 Intake Total 150 Output Total 200 Balance -50 PT 14.3 SEC (12.0-15.0) 03/09/18 17:50 INR 1.09 (0.83-1.16) 03/09/18 17:50 General: awake, alert, no distress, much brighter Lungs: clear bilaterally Cardiovascular: RRR no murmur Abdomen: soft, NT Extremities: minimal edema ICD10 Worksheet Patient Problems: Problems Problem Status Onset Abdominal pain Acute Arthrodesis status Acute Cauda equina syndrome Acute Chronic Disease Mgmt/Transitional Care Acute Chronic Disease Mgmt/Transitional Care Acute Low back pain Acute Lumbosacral stenosis Acute Pneumonia Acute UTI (urinary tract infection) Acute
--- NOTE | 2018-03-10 09:45 | ASDISCHSUM ---
Discharge Information Plan Status:Home with No Needs Medically Cleared to Leave:03/09/2018 Discharge Date:03/09/2018 CM D/C Disposition:Home, Routine, Self-Care ADT D/C Disposition: Projected Discharge Date:03/09/2018 Transportation at D/C: Discharge Delay Reason: Follow-Up Date:03/09/2018 Discharge Slot: Final Diagnosis: Placement Information Patient Contact Information Contact Name:SANAT Relationship: Address:[address] [place] [address] City:[facility] Phone: State/Zip Code:[place] [address] Email: Financial Information Financial Class:Medicare Primary Plan Desc:MEDICARE INPATIENT Primary Plan Number:[id number] Secondary Plan Desc:NGUYEN EPIFANIO COONEY Secondary Plan Number:[id number] Assessment Information LACE LACE Length of stay for Answers: Less than 1 day current admission Acuity / Level of Answers: Yes Care: Did the patient have an inpatient admission? Comorbidities - select Answers: Coronary Artery Disease all that apply Opioid dependence / Chronic pain Other Notes: HTN; Diverticulitis # of Emergency department Answers: 1-2 visits in the last 6 months Social determinants Answers: Mental health diagnosis (anxiety, depression, pers onality disorders, etc.) Score: 14 Date Signed: 03/10/2018 09:44 AM Electronically Signed By:Jill Cole RN Intervention Information
--- NOTE | 2018-03-10 15:18 | GDS ---
DISCHARGE DIAGNOSES: 1. Atrial fibrillation with rapid ventricular rate. 2. Lower gastrointestinal bleed. 3. Viral syndrome. HOSPITAL COURSE: The patient is a 77-year-old woman with multiple medical problems, who was seen in the office on the day of admission with complaints of bright red blood per rectum. She was not found to be bleeding on that particular aspect of her exam. However, she was noted to be in rapid atrial fibrillation with a rate of 143, and that is what prompted the diagnosis. [facility] she spontaneously converted to sinus rhythm. Further workup included a chest x-ray which show ed some interstitial edema, but actually better than previous x-ray. Echocardiogram was unchanged fr om a year ago. A CBC was normal as were her remaining labs including a BNP and troponin. She remain ed in sinus rhythm without further intervention over the course of her hospital stay, and I feel she is stable for discharge today. She will plan on followup in the office early next week. Anticipate scheduling a 30 day monitor in order to assess the frequency of atrial fibrillation, especially in th e absence of previously diagnosed atrial fibrillation. /[id number]/MODL
== END 2018-03-10 11:06 | disposition home or self-care (01) | DRG 309 ==
LOC: F2W 16:02
PROVIDERS: ADMIT Internal Medicine; ATTEND Internal Medicine
DX: I48.91 Unspecified atrial fibrillation (principal); K62.5 Hemorrhage of anus and rectum; B34.9 Viral infection, unspecified; I10 Essential (primary) hypertension; M06.9 Rheumatoid arthritis, unspecified; G47.33 Obstructive sleep apnea (adult) (pediatric); F41.8 Other specified anxiety disorders; I25.10 Atherosclerotic heart disease of native coronary artery without angina pectoris; M81.0 Age-related osteoporosis without current pathological fracture; Z87.891 Personal history of nicotine dependence
CPT/HCPCS: 97161-GP; 97166-GO

== ENCOUNTER → 2018-03-24 | Outpatient (CLI) | payer OTHER | LOC: BHFA 13:00 | PROVIDERS: ATTEND Internal Medicine Interventional Cardiology | DX: I48.91 Unspecified atrial fibrillation (principal) | CPT/HCPCS: 78452; 93017; A9500; J2785 ==

== ENCOUNTER 2018-05-16 08:31 | Inpatient (IN) | payer OTHER ==
--- NOTE | 2018-05-15 17:10 | GHP ---
[f rep st] PREOP HISTORY AND PHYSICAL DATE OF ADMISSION: 05/16/2018 HISTORY: The patient is a 77-year-old female who presents with right hip pain. It is primarily localized in the groin area and has been progressive over months now. It has worsened progressively and quickly. She has pain when weightbearing and she also has pain at night. Her presentation is somewhat complex in that she has significant lumbosacral spine disease and has undergone fusions. In order to clarify the source of her pain, Dr. De Jesus provided a steroid injection and anesthetic in the right hip joint and this significantly decreased her pain and in fact, eliminated it temporarily for about a week. She does have a history of rheumatoid arthritis. Her cage unloader is Dr. Uriah Zheng. She has had a previous total knee arthroplasty and that has done well. She has a history of hypertension. Her x-rays show a decreased joint space around the right hip consistent with her inflammatory arthritis. She has tried conservative measures and has been well managed by her cage unloader. She wishes to proceed with a right total hip arthroplasty. PAST MEDICAL HISTORY: Significant for hypertension, osteoporosis, and rheumatoid arthritis. She has had a right total knee arthroplasty. She has had an L-spine fusion x3. ALLERGIES: Include penicillin with a rash, Remicade. MEDICATIONS: She is numerous medications. They include Bystolic 10 mg p.o. daily, Xeljanz XR 11 mg tablets extended release, Ketoralac eyedrops, calcitonin , Celebrex, methotrexate, mirtazapine, diazepam, gabapentin, lamotrigine, she uses morphine 30 mg tablets extended release. SOCIAL HISTORY: She is a former smoker. REVIEW OF SYSTEMS: Remarkable from a cardiopulmonary standpoint for her hypertension, from the musculoskeletal standpoint for her rheumatoid arthritis. PHYSICAL EXAM: GENERAL: The patient is a well-developed, well-nourished female in no apparent distress. HEAD AND NECK EXAM: Normocephalic, atraumatic. CHEST: Clear. CARDIOVASCULAR: Regular rate and rhythm. ABDOMEN : Soft. NEUROLOGIC: She is alert and oriented x3. MUSCULOSKELETAL: Examination of the right hip shows difficulty fully extending her hip. She achieves about 95 degrees of flexion with pain. She lacks internal and external rotation, attempts to do so are painful. NEUROVASCULAR EXAM: Appears intact. IMAGING: X-rays show decreased joint space around the right hip. Of note here , she has had an intra-articular steroid and anesthetic injection that resolved her hip pain. IMPRESSION: Right hip arthritis. PLAN: Right total hip arthroplasty. Benefits and risks of surgery have been reviewed with the patient. She understands that the risks include infection, damage to blood vessels or nerves, failure or loosening of the component, need for revision, hip instability or dislocation, bleeding and need for transfusion , blood clot in the leg or lungs. I have reviewed the rigorous nature of the rehabilitation and pain management options. She has signed a consent form and wishes to proceed. /[id number]/MODL MTDD
[2018-05-16] MEDS ORDERED: TRANEXAMIC ACID 1,000 MG in NS 100 ML IV ONE (08:43)
[2018-05-16] MEDS ORDERED: ONDANSETRON 4 MG/2 ML VIAL IVP ONE (08:43)
[2018-05-16] MEDS ORDERED: ROPIVACAINE 0.2% 80 MG, EPINEPHrine 0.2 MG, KETOROLAC TROMETHAMINE 30 MG in SYRINGE 0 ML IU ONE (08:43)
[2018-05-16] MEDS ORDERED: GABAPENTIN 300 MG CAP PO ONE (08:43)
[2018-05-16] MEDS ORDERED: DEXAMETHASONE 4 MG/ML VIAL IVP ONE (08:43)
[2018-05-16] MEDS ORDERED: FAMOTIDINE 20 MG TAB PO ONE (08:43)
[2018-05-16] MEDS ORDERED: VANCOMYCIN PHARMACY TO DOSE MISC ONE (08:43)
[2018-05-16] MEDS ORDERED: ACETAMINOPHEN 325 MG TAB PO ONE (08:43)
[2018-05-16] MEDS ORDERED: POVIDONE-IODINE 20 ML in SODIUM CL IRRIG SOLUTION 500 ML IRR ONE (08:43)
[2018-05-16] MEDS ORDERED: LR 1,000 ML IV ONE (08:46)
[2018-05-16] MEDS ORDERED: ceFAZolin 1 GM/5 ML SYR ONE (08:54)
[2018-05-16] MEDS ORDERED: ceFAZolin 2 GM/DEXTROSE 100 ML IV ONE (09:00)
[2018-05-16] MEDS ORDERED: ACETAMINOPHEN 325 MG TAB ONE (09:36)
[2018-05-16] MEDS ORDERED: FAMOTIDINE 20 MG TAB ONE (09:36)
[2018-05-16] MEDS ORDERED: GABAPENTIN 300 MG CAP ONE (09:36)
[2018-05-16] MEDS ORDERED: MIDAZOLAM 2 MG/2 ML VIAL IVP ONE (10:15)
--- NOTE | 2018-05-16 10:17 | PDANEPAE ---
ANE Past Medical History - Cardiovascular History Hx Hypertension: Yes Hx Arrhythmias: Yes Hx Chest Pain: No Hx Coronary Artery / Peripheral Vascular Disease: No Hx CHF / Valvular Disease: No Hx Palpitations: No Cardiovascular History Comment: htn. afib with RVR in nov 2017 admitted to [facility]. followed by [facility] - Pulmonary History Hx COPD: No Hx Asthma/Reactive Airway Disease: No Hx Recent Upper Respiratory Infection: No Hx Oxygen in Use at Home: No Hx Sleep Apnea: No Sleep Apnea Screening Result - Last Documented: Positive Pulmonary History Comment: bryce positive uses cpap- instructed pt bring to hospital - Neurologic History Hx Cerebrovascular Accident: No Hx Seizures: No Hx Dementia: No Neurologic History Comment: hx of spinal surgeries - Endocrine History Hx Diabetes: No Endocrine History Comment: hypothyroidism - Renal History Hx Renal Disorders: Yes Renal History Comment: incontinence- wears briefs. hx of chronic bladder infections takes cephalexin nightly. PYELONEPHRITIS 1946 - Liver History Hx Hepatic Disorders: No - Neurological & Psychiatric Hx Hx Neurological and Psychiatric Disorders: Yes Neurological / Psychiatric History Comment: depression - Cancer History Hx Cancer: No - Congenital Disorder History Hx Congenital Disorders: No - GI History Hx Gastrointestinal Disorders: Yes Gastrointestinal History Comment: diverticulitis. ibs. hx of colonoscopies and EGD - Other Health History Other Health History: ANKYLOSING SPONDYLITIS. RA and OA. wears glasses. upper dental bridge/ retainer that is removable - Chronic Pain History Chronic Pain: Yes (right hip, back) - Surgical History Prior Surgeries: 12/10/17 colonscopy with Bhavana. 11/11/17 EGD with Dasha. 11/25/16 left TKA with Maria T. 02/02/14 t9-12 fusion with Fermín. RT CATARACT . 08/01/12 right TKA with Shashank. 01/09/13 left flank hernia repair with Bernardo. 08/29/08 lumbar fusion with Fermín. RT KNEE SCOPE. LAMINECTOMY & FUSION X 4 SURG. HYSTERECTOMY. RT BREAST BX X2 ANE Review of Systems Review of Systems: - Exercise capacity METS (RN): 3 METS ANE Patient History - Allergies Allergies/Adverse Reactions: clarithromycin [From Biaxin] Allergy (Verified 05/12/18 16:01) nausea codeine [Codeine] Allergy (Verified 05/12/18 16:01) UPSET STOMACH, HEAD SPINS fentanyl Allergy (Verified 05/12/18 16:01) vomitting infliximab [From Remicade] Allergy (Verified 05/12/18 16:01) RIGHT SIDED PARALYSIS, SEVERE REACTION oxycodone Allergy (Verified 05/12/18 16:01) Vomiting Penicillins Allergy (Verified 05/12/18 16:01) Hives - Home Medications Home Medications: Gabapentin [Neurontin 300 MG (*)] 600 mg PO TID 12/09/17 [Last Taken 05/16/18 300MG] Herbals/Supplements -Info Only 1 ea PO DAILY 12/09/17 [Last Taken 05/12/18] Lisinopril [Zestril 40 mg (*)] 40 mg PO DAILY 12/09/17 [Last Taken 05/16/18] Methylphenidate HCl [Ritalin 5mg (*)] 10 mg PO BID@12/09/17 [Last Taken ] Mirtazapine [Remeron soltab 15 mg (*)] 15 mg PO HS 12/09/17 [Last Taken 05/15/18 ] Morphine Sulfate [Morphine Sulfate ER] 30 mg PO BID 12/09/17 [Last Taken 06:30] Nebivolol HCl [Bystolic 5 mg (*)] 10 mg PO HS 12/09/17 [Last Taken 05/15/18] Venlafaxine Xr [Effexor Xr 75MG (*)] 75 mg PO DAILY 12/09/17 [Last Taken 06:30] Venlafaxine Xr [Effexor Xr 75MG (*)] 150 mg PO DAILY 12/09/17 [Last Taken 06:30] celeCOXIB [Celebrex (*)] 200 mg PO BID PRN 12/09/17 [Last Taken 05/12/18] lamoTRIgine [LamICTAL 100 MG (*)] 100 mg PO DAILY 12/09/17 [Last Taken 05/16/18 06:30] Aspirin EC [Aspirin EC 81 mg (*)] 81 mg PO DAILY 03/09/18 [Last Taken 05/12/18] CEPHALEXIN HS 05/12/18 [Last Taken 05/12/18] Methotrexate 05/12/18 [Last Taken 05/09/18] - NPO status NPO Since - Liquids (Date): 05/16/18 NPO Since - Liquids (Time): 06:30 NPO Since - Solids (Date): 05/15/18 NPO Since - Solids (Time): 21:00 - Smoking Hx Smoking Status: Former smoker - Family Anes Hx Family Hx Anesthesia Complications: none ANE Labs/Vital Signs - Vital Signs Blood Pressure: 147/84 Heart Rate: 69 Respiratory Rate: 16 O2 Sat (%): 91 Height: 160.02 cm Weight: 79.6 kg ANE Physical Exam - Airway Neck exam: FROM Mallampati Score: Class 2 Mouth exam: dentures - Pulmonary Pulmonary: no respiratory distress - Cardiovascular Cardiovascular: regular rate and rhythym - ASA Status ASA Status: II ANE Anesthesia Plan Anesthesia Plan: general endotracheal anesthesia Regional Anesthesia: single shot NB
[2018-05-16] MEDS ORDERED: BUPIVACAINE/EPI 0.5% 30 ML SDV ONE (10:25)
[2018-05-16] MEDS ORDERED: PROPOFOL 200 MG/20 ML VIAL ONE (10:31)
[2018-05-16] MEDS ORDERED: ROCURONIUM 50 MG/5 ML VIAL ONE ×2 (10:31→11:24)
[2018-05-16] MEDS ORDERED: fentaNYL 250 MCG/5 ML INJ ONE (10:31)
[2018-05-16] MEDS ORDERED: LIDOCAINE 2% 100 MG/5 ML SYR ONE (10:31)
[2018-05-16] MEDS ORDERED: ONDANSETRON 4 MG/2 ML VIAL ONE (10:31)
[2018-05-16] MEDS ORDERED: PHENYLEPHRINE HCL 100 MCG/ML SYR ONE (11:02)
[2018-05-16] MEDS ORDERED: ONDANSETRON 4 MG/2 ML VIAL IVP PRN ×2 (11:56→13:04)
[2018-05-16] MEDS ORDERED: HYDROmorphONE/DILAUDID 2 MG/ML INJ IVP PRN (11:56)
[2018-05-16] MEDS ORDERED: ACETAMINOPHEN 500 MG TAB PO PRN (11:56)
[2018-05-16] MEDS ORDERED: ALBUTEROL 3 ML DEYVIAL IH PRN (11:56)
[2018-05-16] MEDS ORDERED: NALOXONE HCL 0.4 MG/ML INJ IVP PRN ×2 (11:56)
[2018-05-16] MEDS ORDERED: diphenhydrAMINE 25 MG CAP PO PRN (13:04)
[2018-05-16] MEDS ORDERED: METOCLOPRAMIDE 10 MG/2 ML VIAL IVP PRN (13:04)
[2018-05-16] MEDS ORDERED: MAGNESIUM HYDROXIDE 30 ML UDCUP PO PRN (13:04)
[2018-05-16] MEDS ORDERED: LACTULOSE 20 GM/30 ML UDCUP PO PRN (13:04)
[2018-05-16] MEDS ORDERED: TEMAZEPAM 15 MG CAP PO PRN (13:04)
[2018-05-16] MEDS ORDERED: PROMETHAZINE HCL 25 MG SUPPR PR PRN (13:04)
[2018-05-16] MEDS ORDERED: BISACODYL 10 MG SUPP PR PRN (13:04)
[2018-05-16] MEDS ORDERED: POLYETHYLENE GLYCOL 3350 17 GM PKT PO PRN (13:04)
[2018-05-16] MEDS ORDERED: ONDANSETRON DISINTEGRATING 4 MG TAB PO PRN ×2 (13:04→16:07)
[2018-05-16] MEDS ORDERED: DIPHENOXYLATE/ATROPINE LOMOTIL 1 TAB PO PRN (13:04)
[2018-05-16] MEDS ORDERED: PROMETHAZINE HCL 25 MG/ML INJ IVP PRN (13:04)
[2018-05-16] MEDS ORDERED: KETOROLAC 15 MG/1 ML SDV IVP ONE (13:14)
--- NOTE | 2018-05-16 13:26 | POSTANESTH ---
Post Anesthetic Evaluation Cardiovascular Status: Similar to Pre-Op Cond Respiratory Status: Similar to Pre-op Cond. Level of Consciousness/Mental Status: Mildly Sleepy, Arousable Pain Control: Adequate, Prn Tx Ordered Nausea/Vomiting Control: Adequate, Prn Tx Ordered Complications Possibly Related to Anesthesia: None Noted
--- NOTE | 2018-05-16 13:43 | PDMN ---
Medical Necessity Medical necessity[place] [facility] [place], A-2 days: 77 yo s/p R CATARINA, MC IP only
[2018-05-16] MEDS ORDERED: ceFAZolin 2 GM/DEXTROSE 100 ML IV SCH (14:00)
[2018-05-16] MEDS ORDERED: DIAZEPAM 5 MG TAB PO PRN (16:07)
--- NOTE | 2018-05-16 16:38 | ASMTCMCOM ---
CM Note CM Note Notes: Pt is a 77 y/o female admitted for right hip pain. Pt went to surgery to have a right hip done. Pt is recommending SNF. OT is still pending. CM met w/ pt for dispo planning. Pt reports that she's been to [facility] in the past and would like a referral to be sent there. Pt prefers to d/c home. Pt has [facility] in the past and would like to use them again. Referrals sent. CM confirmed pts address and phone number. Pts phone number is [phone]. Pts PCP is Dr. Lockett. CM to follow. Plan: TBD Date Signed: 05/16/2018 04:37 PM Electronically Signed By:ASA Lane
[2018-05-16] MEDS: LR 1,000 ML IV SCH (16:43)
[2018-05-16] MEDS: ACETAMINOPHEN 325 MG TAB PO SCH (17:37)
[2018-05-16] MEDS: oxyCODONE IR 5 MG TAB PO PRN (17:38)
[2018-05-16] MEDS: ceFAZolin 2 GM/DEXTROSE 100 ML IV SCH (17:39)
[2018-05-16] MEDS: MIRTAZAPINE 15 MG TAB PO SCH (20:07)
[2018-05-16] MEDS: ASCORBIC ACID 500 MG TAB PO SCH (20:07)
[2018-05-16] MEDS: FAMOTIDINE 20 MG TAB PO SCH (20:07)
[2018-05-16] MEDS: lamoTRIgine 100 MG TAB PO SCH (20:08)
[2018-05-16] MEDS: morphINE SR 30 MG TAB PO SCH (20:08)
[2018-05-16] MEDS: ASPIRIN 81 MG CHEWABLE TAB PO SCH (20:09)
[2018-05-16] MEDS: GABAPENTIN 300 MG CAP PO SCH (20:09)
[2018-05-16] MEDS: NEBIVOLOL HCL 5 MG TAB PO SCH (20:16)
[2018-05-16] MEDS: IPRATROPIUM 0.06% NASAL SPRAY EACHNARE SCH (20:19)
[2018-05-16] MEDS: SENNOSIDES/DOCUSATE SODIUM TAB PO SCH (20:21)
[2018-05-16] MEDS ORDERED: MIRTAZAPINE 15 MG ODTAB PO SCH (21:00)
[2018-05-16] MEDS ORDERED: morphINE SR 30 MG TAB PO SCH ×2 (21:00)
[2018-05-16] MEDS ORDERED: NEBIVOLOL HCL 5 MG TAB PO SCH (21:00)
[2018-05-16] MEDS ORDERED: NON-FORMULARY NEW DRUG (Nebivolol Hcl [Bystolic] 10 MG) PO SCH (21:00)
--- NOTE | 2018-05-16 22:50 | GOP ---
[f rep st] OPERATIVE REPORT DATE OF OPERATION: SURGEON: Martín Encarnacion MD TOOL SMITH: My assistant laboratory director was a medical necessity for this total joint replacement. ANESTHESIOLOGIST: Orion Rubio MD. PREOPERATIVE DIAGNOSIS: Right hip arthritis. POSTOPERATIVE DIAGNOSIS: Right hip arthritis. PROCEDURE PERFORMED: Right total hip arthroplasty. FINDINGS: SPECIMENS: Include excised bone. ESTIMATED BLOOD LOSS: About 75 cc. INDICATIONS: The patient is a 77-year-old female who presents with severe right hip pain. She has r heumatoid arthritis. She has decreased joint space and responded very favorably to an intra-articula r injection. I used the injection to separate out symptoms from her back problems. She has had mult iple back fusions. She has decreased joint space on her x-ray of the right hip consistent with her i nflammatory arthritis. She has tried appropriate conservative measures. A right total hip arthropla sty is planned. DESCRIPTION OF PROCEDURE: The patient was taken to the operating room, placed supine on the operatin g table, placed under general anesthetic with endotracheal intubation. We did not use a spinal anest hetic because of her 3 lumbar spine surgeries. She received preoperative Ancef 2 g IV, tranexamic ac id. She was rolled onto her left side on a pegboard. All bony prominences were well padded, we used an axillary roll, the pegs were used to support her in the lateral position. The right hip was prep ped and draped free with the right lower extremity in the usual fashion with chlorhexidine. I used a posterior approach to the hip. I used an incision gently curving posterior to the greater trochante r, and dissection was carried down through subcutaneous tissue. I incised through the ITB and fascia , carried this through the trochanteric bursa, and split the gluteal fascia. The sciatic nerve was i dentified and preserved. I divided and tagged the piriformis and the other more distal short rotator s, I opened the capsule and tagged the edges of it as well. I placed a pin above the hip joint, then a drill point in the greater trochanter for a predislocation leg length measurement. The hip was ge ntly dislocated. I used a neck cutting guide to make a neck cut preserving about 10-12 mm of the lon car by preoperative planning. I then exposed the acetabulum with an anterior and posterior acetabula r retractor. We started reaming around size 46 and reamed to a 51, deepening the acetabulum and ream ing into bleeding bone. I press-fit a 52 G7 Biomet acetabular liner, opening angle about 40 degrees and about 20 degrees of anteversion. It was a good fit, did not require screws, and I placed a cap i n the base of the cup. I placed a trial liner. I then opened the canal in the femur with a box chis el and an awl and I did sequential broaching with Taperloc stem broaches, and I broached up to a size 10 which was a good fit. I did trial reductions. I then went back to the acetabulum and placed a G 7 acetabular neutral liner. This has E1 antioxidant infused. This is ultra-high molecular weight po lyethylene. I then press-fit a Taperloc complete primary femoral porous-coated stem size 10. This w as a good fit as well. I completed my trial reductions and chose a Biolox -6 femoral head. This was a 36 mm diameter head. The hip was reduced, and stability was excellent. I used irrigation with sa line, antibiotics as well as Betadine rinse. She received a separate 2nd dose of tranexamic acid. I drilled 2 holes in the posterior trochanter and threaded my capsular and short rotator layers throug h these holes and tied each separately with multiple knots. This provided good soft tissue repair. The sciatic nerve looked good posteriorly. I closed the fascia with interrupted [id number] sutu res of 0 Mersilene, the fairly thick subcutaneous layer was closed in multiple layers of 2-0 Monocryl , and the skin was closed with a 3-0 Quill subcuticular suture. This was further reinforced with tis mumtaz glue, Telfa, and a large Tegaderm. There were no complications. DRAINS: None. COUNTS: All counts were correct. DISPOSITION: The patient was taken in stable condition to recovery. SUMMARY OF COMPONENTS: This was a Biomet hip system. The stem was a Taperloc complete primary femor al porous-coated stem size 10. The acetabulum was a G7 acetabular shell. The acetabular liner was p olyethylene antioxidant-infused shell neutral size to accommodate a 36 mm head. The head was a Biolo x -6 neck, 36 mm ceramic. /[id number]/MODL
[2018-05-17] MEDS: ACETAMINOPHEN 325 MG TAB PO SCH ×4 (01:10→19:11)
[2018-05-17] MEDS: ceFAZolin 2 GM/DEXTROSE 100 ML IV SCH (01:12)
[2018-05-17] MEDS: LR 1,000 ML IV SCH (04:21)
[2018-05-17] MEDS: oxyCODONE IR 5 MG TAB PO PRN ×4 (04:31→22:50)
--- NOTE | 2018-05-17 08:39 | SOAPPROG ---
SOAP Progress Note Assessment/Plan: Assessment: 05/17/18 POD#1 R CATARINA. xray fine, Hct 30, dressing dry Plan: 05/17/18 08:38 PT/OT, mobilize Objective: Vital Signs Temp Pulse Resp BP Pulse Ox 36.6 C 79 18 132/71 H 96 05/17/18 07:26 05/17/18 07:26 05/17/18 07:26 05/17/18 07:26 05/17/18 07:26 Laboratory Results 05/17/18 04:17 05/16/18 05/17/18 05/18/18 05:59 05:59 05:59 Intake Total 4159 Output Total 650 Balance 3509 ICD10 Worksheet Patient Problems: Problems Problem Status Onset Abdominal pain Acute Arthrodesis status Acute Cauda equina syndrome Acute Chronic Disease Mgmt/Transitional Care Acute Chronic Disease Mgmt/Transitional Care Acute Low back pain Acute Lumbosacral stenosis Acute Pneumonia Acute UTI (urinary tract infection) Acute
[2018-05-17] MEDS: GABAPENTIN 300 MG CAP PO SCH ×2 (08:40→21:50)
[2018-05-17] MEDS: MAGNESIUM OXIDE 400 MG TAB PO SCH (08:41)
[2018-05-17] MEDS: PRESERVISION AREDS2 FORMULA EYE VIT 1 EACH PO SCH (08:41)
[2018-05-17] MEDS: FAMOTIDINE 20 MG TAB PO SCH ×2 (08:41→21:50)
[2018-05-17] MEDS: CALCIUM CARBONATE 500 MG TAB PO SCH (08:42)
[2018-05-17] MEDS: lamoTRIgine 100 MG TAB PO SCH ×2 (08:42→21:50)
[2018-05-17] MEDS: ASCORBIC ACID 500 MG TAB PO SCH ×2 (08:42→21:50)
[2018-05-17] MEDS: CHOLECALCIFEROL VIT D3 2,000 UNITS TAB/CAP PO SCH (08:42)
[2018-05-17] MEDS: ASPIRIN 81 MG CHEWABLE TAB PO SCH ×2 (08:42→21:50)
[2018-05-17] MEDS: LISINOPRIL 40 MG TAB PO SCH (08:42)
[2018-05-17] MEDS ORDERED: LISINOPRIL 40 MG TAB PO SCH (09:00)
[2018-05-17] MEDS ORDERED: Herbals/Supplements -Info Only PO SCH (09:00)
[2018-05-17] MEDS ORDERED: lamoTRIgine 100 MG TAB PO SCH (09:00)
[2018-05-17] MEDS ORDERED: VENLAFAXINE XR 75 MG CAP PO SCH ×2 (09:00)
--- NOTE | 2018-05-17 09:25 | SOAPPROG ---
SOAP Progress Note Assessment/Plan: Assessment: 77 yo female with h/o RA, IBS, HTN, anxiety/depression, cervicalgia , urinary incontinence, IgG deficiency, PREET, CAD, and afib who is s/p R CATARINA. Plan: POD 1 R CATARINA- dressing CDI, vitals stable, hct 30, + BS but no postop BM yet, start bowel regimen, appetite good, encourage mobility, up with PT/OT Chronic pain- Morphine XR 30mg BID continued from home, currently well controlled, oxycodone 10mg q4h prn breakthrough pain, scheduled tylenol HTN- vitals stable, continue home meds Afib- recently dx'd, has h/o GI bleeding so working with [facility] for surveillance of frequency of afib and determination of plan (watchman vs anticoag need) Anxiety/depression- continue effexor, stable IgG deficiency- gets IVIG regularly as outpt PREET- CPAP CAD- currently without e/o ACS, vitals stable DVT prophylaxis- lovenox 40mg SC daily Dispo- d/c to SNF vs home when ready depending on needs and recs by PT/OT 05/17/18 09:16 Subjective: Brooke is up in her chair this morning eating breakfast. Says pain meds are helping significantly. Has pain when transitioning but otherwise tolerable. Has voided, passing gas. Good appetite. Objective: Vital Signs Temp Pulse Resp BP Pulse Ox 36.6 C 79 18 132/71 H 96 05/17/18 07:26 05/17/18 07:26 05/17/18 07:26 05/17/18 08:42 05/17/18 07:26 Laboratory Results 05/17/18 04:17 05/16/18 05/17/18 05/18/18 05:59 05:59 05:59 Intake Total 4159 Output Total 650 Balance 3509 Gen- alert, oriented, vitals stable Head- normocephalic, atraumatic Resp- LCTAB, no wheezing, rhonchi, rales CV- S1S2, RRR, no murmurs, rubs, gallops Abd- SNT, nondistended, + BS R hip- dressing CDI, minimal ecchymosis Neuro- grossly intact ICD10 Worksheet Patient Problems: Problems Problem Status Onset Abdominal pain Acute Arthrodesis status Acute Cauda equina syndrome Acute Chronic Disease Mgmt/Transitional Care Acute Chronic Disease Mgmt/Transitional Care Acute Low back pain Acute Lumbosacral stenosis Acute Pneumonia Acute UTI (urinary tract infection) Acute
[2018-05-17] MEDS: OMEGA-3 FATTY ACIDS 1,000 MG CAP PO SCH (11:42)
[2018-05-17] MEDS: VITAMIN B COMPLEX 1 EA CAP/TAB PO SCH (11:42)
[2018-05-17] MEDS: SENNOSIDES/DOCUSATE SODIUM TAB PO SCH ×2 (11:42→21:52)
[2018-05-17] MEDS: morphINE SR 30 MG TAB PO SCH ×2 (11:42→21:51)
[2018-05-17] MEDS: VENLAFAXINE XR 75 MG CAP PO SCH (11:42)
[2018-05-17] MEDS: CYCLOBENZAPRINE 10 MG TAB PO PRN (11:42)
[2018-05-17] MEDS: ENOXAPARIN 40 MG/0.4 ML SYR SC SCH (11:45)
[2018-05-17] MEDS: IPRATROPIUM 0.06% NASAL SPRAY EACHNARE SCH ×2 (12:03→21:55)
[2018-05-17] MEDS: MIRTAZAPINE 15 MG TAB PO SCH (21:50)
[2018-05-17] MEDS: NEBIVOLOL HCL 5 MG TAB PO SCH (21:51)
[2018-05-18] MEDS: ACETAMINOPHEN 325 MG TAB PO SCH ×4 (02:12→18:14)
[2018-05-18] MEDS: CYCLOBENZAPRINE 10 MG TAB PO PRN ×3 (02:15→22:02)
[2018-05-18] MEDS: oxyCODONE IR 5 MG TAB PO PRN ×5 (06:33→22:02)
--- NOTE | 2018-05-18 08:19 | SOAPPROG ---
SOAP Progress Note Assessment/Plan: Assessment: POD #2. s/p R CATARINA Awake, alert, afebrile. Dressing clean and dry. H/H ok. VSS. OOB w/ PT/OT yesterday. Slow to progress. Pt reports feeling apprehensive about pain, although she reports no significant pain. Plan: PT/OT today. Anticipate d/c to home. Lives at home w/ . Pt has PT set up for outpatient next week at our office. 05/18/18 08:17 Objective: Vital Signs Temp Pulse Resp BP Pulse Ox 37.2 C 83 17 133/44 H 91 L 05/18/18 07:33 05/18/18 07:33 05/18/18 07:33 05/18/18 07:33 05/18/18 07:33 Laboratory Results 05/18/18 04:25 05/17/18 05/18/18 05/19/18 05:59 05:59 05:59 Intake Total 4159 800 Output Total 650 400 Balance 3509 400 ICD10 Worksheet Patient Problems: Problems Problem Status Onset Abdominal pain Acute Arthrodesis status Acute Cauda equina syndrome Acute Chronic Disease Mgmt/Transitional Care Acute Chronic Disease Mgmt/Transitional Care Acute Low back pain Acute Lumbosacral stenosis Acute Pneumonia Acute UTI (urinary tract infection) Acute
--- NOTE | 2018-05-18 08:53 | SOAPPROG ---
LYNNE Progress Note Assessment/Plan: Assessment: Plan: 05/18/18 08:52 s/p right hip replacement, doing well. Anticipate d/c home. She has extra support at home. Will have her start on a short course of iron at home. Subjective: Brooke is doing well with the process. She is hoping sternly to get home today. No unexpected challenges. Objective: Vital Signs Temp Pulse Resp BP Pulse Ox 37.2 C 83 17 133/44 H 91 L 05/18/18 07:33 05/18/18 07:33 05/18/18 07:33 05/18/18 07:33 05/18/18 07:33 Laboratory Results 05/18/18 04:25 05/17/18 05/18/18 05/19/18 05:59 05:59 05:59 Intake Total 4159 800 Output Total 650 400 Balance 3509 400 Gen: Bright, pleasant Lungs: mild crackles in bases, stable finding. Heart: RRR Abd + bs soft LE's trace edema Wound--dressed Hgb 9.1 VSS ICD10 Worksheet Patient Problems: Problems Problem Status Onset Osteoarthritis of right hip Acute Abdominal pain Acute Arthrodesis status Acute Cauda equina syndrome Acute Chronic Disease Mgmt/Transitional Care Acute Chronic Disease Mgmt/Transitional Care Acute Low back pain Acute Lumbosacral stenosis Acute Pneumonia Acute UTI (urinary tract infection) Acute
[2018-05-18] MEDS: PRESERVISION AREDS2 FORMULA EYE VIT 1 EACH PO SCH (09:39)
[2018-05-18] MEDS: OMEGA-3 FATTY ACIDS 1,000 MG CAP PO SCH (09:39)
[2018-05-18] MEDS: FAMOTIDINE 20 MG TAB PO SCH ×2 (09:39→21:56)
[2018-05-18] MEDS: SENNOSIDES/DOCUSATE SODIUM TAB PO SCH ×2 (09:39→22:19)
[2018-05-18] MEDS: LISINOPRIL 40 MG TAB PO SCH (09:39)
[2018-05-18] MEDS: GABAPENTIN 300 MG CAP PO SCH ×2 (09:39→21:53)
[2018-05-18] MEDS: ASCORBIC ACID 500 MG TAB PO SCH ×2 (09:39→21:55)
[2018-05-18] MEDS: CHOLECALCIFEROL VIT D3 2,000 UNITS TAB/CAP PO SCH (09:39)
[2018-05-18] MEDS: CALCIUM CARBONATE 500 MG TAB PO SCH (09:39)
[2018-05-18] MEDS: lamoTRIgine 100 MG TAB PO SCH ×2 (09:39→21:55)
[2018-05-18] MEDS: VENLAFAXINE XR 75 MG CAP PO SCH (09:40)
[2018-05-18] MEDS: VITAMIN B COMPLEX 1 EA CAP/TAB PO SCH (09:40)
[2018-05-18] MEDS: morphINE SR 30 MG TAB PO SCH ×2 (09:40→21:55)
[2018-05-18] MEDS: ASPIRIN 81 MG CHEWABLE TAB PO SCH ×2 (09:40→21:55)
[2018-05-18] MEDS: MAGNESIUM OXIDE 400 MG TAB PO SCH (09:40)
[2018-05-18] MEDS: IPRATROPIUM 0.06% NASAL SPRAY EACHNARE SCH ×2 (09:46→22:25)
[2018-05-18] MEDS: ENOXAPARIN 40 MG/0.4 ML SYR SC SCH (14:43)
--- NOTE | 2018-05-18 15:56 | ASMTCMCOM ---
CM Note CM Note Notes: This morning pt was hopeful she could go home and requested home PT. Voicemail left for discharging CHRISTIE Flor requesting C order. PA d/c progress note states pt set up with outpatient PT next week. After working with PT pt states she would like to d/c to SNF and she would feel unsafe discharging home. PT and OT rec SNF today and do not "clear" pt for home. Pt resides with her who has some physical limitations, pt also has 12 stairs to get to her main level she can stay on and the PT note indicates pt was unsafe on stairs today. A second voicemail was left for CHRISTIE Flor with updates on pt request for SNF. Prior to today communicated to pt he did not recommend SNF d/c. CM to follow. Date Signed: 05/18/2018 03:56 PM Electronically Signed By:CURTIS Way
[2018-05-18] MEDS: NEBIVOLOL HCL 5 MG TAB PO SCH (21:54)
[2018-05-18] MEDS: MIRTAZAPINE 15 MG TAB PO SCH (21:55)
[2018-05-19] MEDS: ACETAMINOPHEN 325 MG TAB PO SCH ×2 (00:51→06:30)
[2018-05-19] MEDS: oxyCODONE IR 5 MG TAB PO PRN (00:54)
--- NOTE | 2018-05-19 07:20 | SOAPPROG ---
SOAP Progress Note Assessment/Plan: Assessment: 05/17/18 POD#1 R CATARINA. xray fine, Hct 30, dressing dry 05/19/18 POD#3, was good late night, 1 oxy, confused this am, dressing remains clean, Hct 27, was aiming for rehab today Plan: 05/17/18 08:38 PT/OT, mobilize 05/19/18 07:17 I called in a Hospitalist consult. Objective: Vital Signs Temp Pulse Resp BP Pulse Ox 36.4 C 81 15 111/70 96 05/18/18 23:08 05/18/18 23:08 05/18/18 23:08 05/18/18 23:08 05/18/18 23:08 Laboratory Results 05/18/18 04:25 05/18/18 05/19/18 05/20/18 05:59 05:59 05:59 Intake Total 800 350 Output Total 400 300 Balance 400 50 ICD10 Worksheet Patient Problems: Problems Problem Status Onset Osteoarthritis of right hip Acute Abdominal pain Acute Arthrodesis status Acute Cauda equina syndrome Acute Chronic Disease Mgmt/Transitional Care Acute Chronic Disease Mgmt/Transitional Care Acute Low back pain Acute Lumbosacral stenosis Acute Pneumonia Acute UTI (urinary tract infection) Acute
--- NOTE | 2018-05-19 08:44 | SOAPPROG ---
SOAP Progress Note Assessment/Plan: Assessment: Plan: 05/18/18 08:52 s/p right hip replacement, doing well. Anticipate d/c home. She has extra support at home. Will have her start on a short course of iron at home. 05/19/18 08:43 acute delirium--suspect due to meds, oxycodone listed as allergy. Will stop it. Cyclobenzaprine given last night, will d/c it. She has done ok with hydrocodone in the past, new order placed for low dose. Given acute changes will check CT head, labs, UA, EKG, suspect this med related. Subjective: Patient feels she is not in the real world and everything around her is fake. She knows me by name, recognizes the sound of my voice, but says I am not the real Wan Patel. No pain, but lots of fear given this shift of reality. Objective: Vital Signs Temp Pulse Resp BP Pulse Ox 36.4 C 81 15 111/70 96 05/18/18 23:08 05/18/18 23:08 05/18/18 23:08 05/18/18 23:08 05/18/18 23:08 Laboratory Results 05/18/18 04:25 05/18/18 05/19/18 05/20/18 05:59 05:59 05:59 Intake Total 800 350 Output Total 400 300 Balance 400 50 Gen: agitated, partially cooperative HEENT: symmelic pupils Neuro: knows situation, right hip replacement on Wednesday, works to the number day with effort Lungs: slight crackles in bases, stable Heart: RRR BP stable but low for Brooke Abd + bs soft Right hip dressed No fever LE's no edema ICD10 Worksheet Patient Problems: Problems Problem Status Onset Osteoarthritis of right hip Acute Abdominal pain Acute Arthrodesis status Acute Cauda equina syndrome Acute Chronic Disease Mgmt/Transitional Care Acute Chronic Disease Mgmt/Transitional Care Acute Low back pain Acute Lumbosacral stenosis Acute Pneumonia Acute UTI (urinary tract infection) Acute
[2018-05-19 09:24] LABS: PLATELET COUNT 295 10^3/uL (150-400)
[2018-05-19] MEDS ORDERED: ACETAMINOPHEN 325 MG TAB PO PRN (10:26)
[2018-05-19] MEDS: morphINE SR 30 MG TAB PO SCH ×2 (10:34→21:32)
[2018-05-19] MEDS: ASPIRIN 81 MG CHEWABLE TAB PO SCH ×2 (10:34→21:32)
[2018-05-19] MEDS: GABAPENTIN 300 MG CAP PO SCH ×2 (10:34→21:33)
[2018-05-19] MEDS: ASCORBIC ACID 500 MG TAB PO SCH ×2 (10:35→21:25)
[2018-05-19] MEDS: CALCIUM CARBONATE 500 MG TAB PO SCH (10:35)
[2018-05-19] MEDS: FAMOTIDINE 20 MG TAB PO SCH ×2 (10:35→21:33)
[2018-05-19] MEDS: VITAMIN B COMPLEX 1 EA CAP/TAB PO SCH (10:36)
[2018-05-19] MEDS: VENLAFAXINE XR 75 MG CAP PO SCH (10:36)
[2018-05-19] MEDS: OMEGA-3 FATTY ACIDS 1,000 MG CAP PO SCH (10:36)
[2018-05-19] MEDS: MAGNESIUM OXIDE 400 MG TAB PO SCH (10:37)
[2018-05-19] MEDS: lamoTRIgine 100 MG TAB PO SCH ×2 (10:37→21:25)
[2018-05-19] MEDS: LISINOPRIL 40 MG TAB PO SCH (10:37)
[2018-05-19] MEDS: CHOLECALCIFEROL VIT D3 2,000 UNITS TAB/CAP PO SCH (10:38)
[2018-05-19] MEDS: PRESERVISION AREDS2 FORMULA EYE VIT 1 EACH PO SCH (10:38)
[2018-05-19] MEDS: IPRATROPIUM 0.06% NASAL SPRAY EACHNARE SCH (10:39)
[2018-05-19] MEDS: SENNOSIDES/DOCUSATE SODIUM TAB PO SCH ×2 (10:39→21:36)
[2018-05-19] MEDS: ACETAMINOPHEN 325 MG TAB PO PRN (13:16)
[2018-05-19] MEDS: HYDROCODONE/APAP 5/325 TAB PO PRN (16:39)
[2018-05-19] MEDS: NEBIVOLOL HCL 5 MG TAB PO SCH (21:25)
[2018-05-19] MEDS: MIRTAZAPINE 15 MG TAB PO SCH (21:33)
[2018-05-20] MEDS: IPRATROPIUM 0.06% NASAL SPRAY EACHNARE SCH ×2 (03:24→10:11)
[2018-05-20] MEDS: HYDROCODONE/APAP 5/325 TAB PO PRN ×2 (04:27→13:06)
--- NOTE | 2018-05-20 06:43 | CPEKG ---
Test Reason : OPEN Blood Pressure : / mmHG Vent. Rate : 077 BPM Atrial Rate : 078 BPM P-R Int : 159 ms QRS Dur : 095 ms QT Int : 400 ms P-R-T Axes : 073 008 -11 degrees QTc Int : 453 ms Sinus rhythm Borderline T abnormalities, inferior leads Confirmed by Fermín Heaton ([id number]) on 05/20/2018 6:43:07 AM Referred By: CONNOR MAZARIEGOS Confirmed By:Fermín Heaton
--- NOTE | 2018-05-20 09:12 | SOAPPROG ---
LYNNE Progress Note Assessment/Plan: Assessment: Plan: 05/18/18 08:52 s/p right hip replacement, doing well. Anticipate d/c home. She has extra support at home. Will have her start on a short course of iron at home. 05/19/18 08:43 acute delirium--suspect due to meds, oxycodone listed as allergy. Will stop it. Cyclobenzaprine given last night, will d/c it. She has done ok with hydrocodone in the past, new order placed for low dose. Given acute changes will check CT head, labs, UA, EKG, suspect this med related. 05/20/18 09:11 oxygen sats low this am. Probe seems to be generating unusual numbers. Will replace and see if values are better. If not, check CTA r/o PE's. Objective: Vital Signs Temp Pulse Resp BP Pulse Ox 36.4 C 78 16 127/66 H 97 05/20/18 08:00 05/20/18 08:00 05/20/18 08:00 05/20/18 08:00 05/20/18 08:00 Laboratory Results 05/19/18 09:05 05/19/18 09:05 05/19/18 05/20/18 05/21/18 05:59 05:59 05:59 Intake Total 350 500 Output Total 300 550 Balance 50 -50 ICD10 Worksheet Patient Problems: Problems Problem Status Onset Osteoarthritis of right hip Acute Abdominal pain Acute Arthrodesis status Acute Cauda equina syndrome Acute Chronic Disease Mgmt/Transitional Care Acute Chronic Disease Mgmt/Transitional Care Acute Low back pain Acute Lumbosacral stenosis Acute Pneumonia Acute UTI (urinary tract infection) Acute
[2018-05-20] MEDS: GABAPENTIN 300 MG CAP PO SCH (09:54)
[2018-05-20] MEDS: lamoTRIgine 100 MG TAB PO SCH (09:54)
[2018-05-20] MEDS: CHOLECALCIFEROL VIT D3 2,000 UNITS TAB/CAP PO SCH (09:54)
[2018-05-20] MEDS: MAGNESIUM OXIDE 400 MG TAB PO SCH (09:54)
[2018-05-20] MEDS: PRESERVISION AREDS2 FORMULA EYE VIT 1 EACH PO SCH (09:55)
[2018-05-20] MEDS: FAMOTIDINE 20 MG TAB PO SCH (09:55)
[2018-05-20] MEDS: OMEGA-3 FATTY ACIDS 1,000 MG CAP PO SCH (09:55)
[2018-05-20] MEDS: morphINE SR 30 MG TAB PO SCH (09:55)
[2018-05-20] MEDS: VENLAFAXINE XR 75 MG CAP PO SCH (09:55)
[2018-05-20] MEDS: ASPIRIN 81 MG CHEWABLE TAB PO SCH (09:56)
[2018-05-20] MEDS: ASCORBIC ACID 500 MG TAB PO SCH (09:56)
[2018-05-20] MEDS: CALCIUM CARBONATE 500 MG TAB PO SCH (09:56)
[2018-05-20] MEDS: VITAMIN B COMPLEX 1 EA CAP/TAB PO SCH (09:56)
[2018-05-20] MEDS: ACETAMINOPHEN 325 MG TAB PO PRN (10:09)
[2018-05-20] MEDS: SENNOSIDES/DOCUSATE SODIUM TAB PO SCH (10:10)
[2018-05-20] MEDS: LISINOPRIL 40 MG TAB PO SCH (10:10)
--- NOTE | 2018-05-20 10:28 | SOAPPROG ---
SOAP Progress Note Assessment/Plan: Assessment: 05/17/18 POD#1 R CATARINA. xray fine, Hct 30, dressing dry 05/19/18 POD#3, was good late night, 1 oxy, confused this am, dressing remains clean, Hct 27, was aiming for rehab today 05/20/18 #4, alert, oriented, dressing fine, w/u CT, nothing acute, confusion likely med related- has cleared Plan: 05/17/18 08:38 PT/OT, mobilize 05/19/18 07:17 I called in a Hospitalist consult. 05/20/18 10:26 ok for transfer to rehab Objective: Vital Signs Temp Pulse Resp BP Pulse Ox 36.4 C 78 16 127/66 H 97 05/20/18 08:00 05/20/18 08:00 05/20/18 08:00 05/20/18 08:00 05/20/18 08:00 Laboratory Results 05/19/18 09:05 05/19/18 09:05 05/19/18 05/20/18 05/21/18 05:59 05:59 05:59 Intake Total 350 500 Output Total 300 550 300 Balance 50 -50 -300 ICD10 Worksheet Patient Problems: Problems Problem Status Onset Osteoarthritis of right hip Acute Abdominal pain Acute Arthrodesis status Acute Cauda equina syndrome Acute Chronic Disease Mgmt/Transitional Care Acute Chronic Disease Mgmt/Transitional Care Acute Low back pain Acute Lumbosacral stenosis Acute Pneumonia Acute UTI (urinary tract infection) Acute
--- NOTE | 2018-05-20 10:39 | PDIAF ---
- Diagnosis Code Status: Full Code - Medication Management Discharge Medications: electronically signed and located in the Home Medication List. - Orders Services needed: Physical Therapy Isolation Type: None Diet Recommendation: no restrictions on diet Diet Texture: Regular Texture Diet Ryland Stockings Discontinue Date: continue for 2 weeks post op Wound Care Instructions: may leave dressing on Sutures/Darien Site: wound glued Activity/Weight Bearing Restrictions: may WBAT, hip precautions for posterior hip replacement - Follow Up Care Current Providers and Referrals: Aries Lockett MD [Primary Care Provider] - Martín Encarnacion MD [Medical Doctor] - 05/31/18
--- NOTE | 2018-05-20 11:49 | ASMTLACE ---
LINA Length of stay for Answers: 4-6 days current admission Acuity / Level of Answers: Yes Care: Did the patient have an inpatient admission? Comorbidities - select Answers: Opioid dependence all that apply / Chronic pain Other Notes: HTN; AFib # of Emergency department Answers: 0 visits in the last 6 months Social determinants Answers: Mental health diagnosis (anxiety, depression, pers onality disorders, etc.) Score: 15 Date Signed: 05/20/2018 11:48 AM Electronically Signed By:Shanna Martinez RN
[2018-05-20] MEDS ORDERED: IOPAMIDOL (ISOVUE-370) 150 ML BTL IV ONE (15:50)
--- NOTE | 2018-05-20 16:21 | ASMTCMCOM ---
CM Note CM Note Notes: CM Note from 05/19/18: PT/OT continue rec SNF, pt is max A with ADLs. Pt had some delirium this morning, likely related to medication. Pt is being followed at [facility] by PCP Levy's office. Spoke with pt Genaro, he wanted to reiterate pt is unsafe to go home. D/C plan of care: [facility] CM Note 05/20/18: Patient medically ready for d/c today. All orders sent to [facility], confirmed with Nina [email or web address]. Spoke with who is in agreement with plan. RN to call report. [facility] has scheduled a 1700 pick-up with Marine Salazar. Of note, discharge has been delayed d/t CT scan availability. Date Signed: 05/20/2018 04:19 PM Electronically Signed By:Shanna Martinez RN
[2018-05-20 16:32] VITALS: BP 110/54
--- NOTE | 2018-05-20 18:05 | ASDISCHSUM ---
Discharge Information Plan Status:SNF Medically Cleared to Leave: Discharge Date:05/20/2018 05:15 PM D/C [facility] ADT D[facility]C Disposition[facility] Projected Discharge Date:05/20/2018 11:00 AM Transportation at D/C:Wheelchair Van Discharge Delay Reason: Follow-Up Date:05/20/2018 11:00 AM Discharge Slot: Final Diagnosis: Placement Information Referral Type:*Home Health Care Services Referral ID:[id number] Provider Name: Address 1: Phone Number: Address 2: Fax Number: City: Selection Factors: State: Referral Type:*Assisted/SNF Referral ID:[id number] Provider Name:[facility] Address 1:[address] Address 2: City:[place] Selection Factors: State:[place] Patient Contact Information Contact Name:SANTA Relationship: Address:[address] City:[place] Alternate Phone: State/Zip Code:[place] [address] Email: Financial Information Financial Class:Medicare Primary Plan Desc:MEDICARE INPATIENT Primary Plan Number:[id number] Secondary Plan Desc:[facility] Secondary Plan Number:[id number] Assessment Information LACE LACE Length of stay for Answers: 4-6 days current admission Acuity / Level of Answers: Yes Care: Did the patient have an inpatient admission? Comorbidities - select Answers: Opioid dependence all that apply / Chronic pain Other Notes: HTN; AFib # of Emergency department Answers: 0 visits in the last 6 months Social determinants Answers: Mental health diagnosis (anxiety, depression, pers onality disorders, etc.) Score: 15 Date Signed: 05/20/2018 11:48 AM Electronically Signed By:Shanna Martinez RN [facility] Progress Note CM Note CM Note Notes: Pt is a 77 y/o female admitted for right hip pain. Pt went to surgery to have a right hip done. Pt is recommending SNF. OT is still pending. CM met w/ pt for dispo planning. Pt reports that she's been to [facility] in the past and would like a referral to be sent there. Pt prefers to d/c home. Pt has [facility] in the past and would like to use them again. Referrals sent. CM confirmed pts address and phone number. Pts phone number is [phone]. Pts PCP is Dr. Lockett. CM to follow. Plan: TBD Date Signed: 05/16/2018 04:37 PM Electronically Signed By:ASA Lane [facility] Progress Note CM Note CM Note Notes: This morning pt was hopeful she could go home and requested home PT. Voicemail left for discharging CHRISTIE Flor requesting [facility] order. PA d/c progress note states pt set up with outpatient PT next week. After working with PT pt states she would like to d/c to SNF and she would feel unsafe discharging home. PT and OT rec SNF today and do not "clear" pt for home. Pt resides with her who has some physical limitations, pt also has 12 stairs to get to her main level she can stay on and the PT note indicates pt was unsafe on stairs today. A second voicemail was left for CHRISTIE Flor with updates on pt request for SNF. Prior to today communicated to pt he did not recommend SNF d/c. CM to follow. Date Signed: 05/18/2018 03:56 PM Electronically Signed By:CURTIS Way [facility] CM Progress Note CM Note CM Note Notes: CM Note from 05/19/18: PT/OT continue rec SNF, pt is max A with ADLs. Pt had some delirium this morning, likely related to medication. Pt is being followed at [facility] by PCP Levy's office. Spoke with pt Genaro, he wanted to reiterate pt is unsafe to go home. D/C plan of care: [facility] CM Note 05/20/18: Patient medically ready for d/c today. All orders sent to [facility], confirmed with Nina mai. Spoke with who is in agreement with plan. RN to call report. [facility] has scheduled a 1700 pick-up with Marine Salazar. Of note, discharge has been delayed d/t CT scan availability. Date Signed: 05/20/2018 04:19 PM Electronically Signed By:Shanna Martinez RN Intervention Information Intervention Type:*Incorrect Registration Date of Service:05/16/2018 09:23 AM Patient Type:Observation Staff Member:Letha Foster Hours: Discipline: Severity: Comment: Intervention Type:*IM-Signed Date of Service:05/20/2018 11:31 AM Patient Type:Inpatient Staff Member:JERMAINE Martinez Janessa Hours: Discipline: Severity: Comment:
== END 2018-05-20 17:15 | DRG 469 ==
LOC: F3N 08:31 → OBSVTOIN 13:23 → F3N 14:53
PROVIDERS: ADMIT Orthopaedic Surgery; ATTEND Orthopaedic Surgery
PROC: 0SR904A Replacement of Right Hip Joint with Ceramic on Polyethylene Synthetic Substitute, Uncemented, Open Approach (ICD-10-PCS; principal; 2018-05-16 10:15)
DX: M16.11 Unilateral primary osteoarthritis, right hip (principal); G93.41 Metabolic encephalopathy; D80.3 Selective deficiency of immunoglobulin G [IgG] subclasses; T40.2X5A Adverse effect of other opioids, initial encounter; M06.9 Rheumatoid arthritis, unspecified; I10 Essential (primary) hypertension; M81.0 Age-related osteoporosis without current pathological fracture; K58.9 Irritable bowel syndrome, unspecified; F41.9 Anxiety disorder, unspecified; F32.9 Major depressive disorder, single episode, unspecified; R32 Unspecified urinary incontinence; G47.33 Obstructive sleep apnea (adult) (pediatric); I25.10 Atherosclerotic heart disease of native coronary artery without angina pectoris; I48.91 Unspecified atrial fibrillation; E03.9 Hypothyroidism, unspecified; Z98.1 Arthrodesis status; Z96.651 Presence of right artificial knee joint; Z88.0 Allergy status to penicillin
CPT/HCPCS: 97116-GP; 97161-GP; 97166-GO; 97530-GO; 97530-GP; 97535-GO; G0515-GO; J0171; J0690; J1100; J1650; J1885; J2001; J2250; J2370; J2405; J2704; J2795; J3010; Q9967